=== PATIENT | female | born 1940 | race Caucasian/White ===

== ENCOUNTER 2018-12-07 09:45 | Outpatient (RCR) | payer MEDICARE, OTHER, SELFPAY ==
[2018-11-16 10:25] VITALS: BP 142/92; PULSE 74; RESP 18; TEMP 36.6
--- NOTE | 2018-11-16 12:00 | HP.PCM_ITS ---
(1) Peripheral arterial occlusive disease Status: Acute Current Visit: Yes Code(s): I77.9 - Disorder of arteries and arterioles, unspecified (2) Peripheral vascular disease Status: Acute Current Visit: Yes Code(s): I73.9 - Peripheral vascular disease, unspecified (3) Edema of lower extremity Status: Acute Current Visit: Yes Code(s): R60.0 - Localized edema (4) Edema of lower extremity due to peripheral venous insufficiency Status: Acute Current Visit: Yes Code(s): I87.2 - Venous insufficiency (chronic) (peripheral) (5) Cellulitis Status: Acute Current Visit: Yes Code(s): L03.90 - Cellulitis, unspecified (6) Cellulitis of lower extremity Status: Acute Current Visit: Yes Code(s): L03.119 - Cellulitis of unspecified part of limb (7) Non-pressure ulcer of lower extremity with fat layer exposed Status: Acute Current Visit: Yes Code(s): L97.902 - Non-pressure chronic ulcer of unspecified part of unspecified lower leg with fat layer exposed (8) History of multiple strokes Status: Acute Current Visit: Yes Code(s): Z86.73 - Personal history of transient ischemic attack (TIA), and cerebral infarction without residual deficits (9) Smoking addiction Status: Acute Current Visit: Yes Code(s): F17.200 - Nicotine dependence, unspecified, uncomplicated History of Present Illness Date of Service: 11/16/18 Chief Complaint: Follow-up on lower leg edema and ulcers History of Wound: 78-year-old white female that was referred to us from her family doctor from [place]. Approximately October 30 woke up one day and had severe edema of her lower extremities that she was unable to walk. Her daughter visits her daily noticed she had open sores on lower extremities and was oozing fluid. Went that she could not walk they took her by ambulance to the [facility]. Patient had an elevated BNP and was kept in the hospital for couple of days and discharged on water pills. Audiogram was normal has some valve problems no A. fib and history of hypertension and high cholesterol had her carotids cleared couple years ago. Today she has ulcers on the anterior and posterior right leg and posterior left leg. Typically irregular and edging well demarcated as you will see it in an arterial problem. We will get cultures of the wounds pre- albumin and we will have an AB study done and venous study of her lower extremities. Past Medical History Past Medical History: PAD PVD positive smoker hypertension strokes endarterectomy for her surgeries edema of the lower extremities Home Medications: Ambulatory Orders Medication Instructions Recorded Albuterol Sulfate [Ventolin Hfa] 18 gm IH PRN PRN 11/16/18 Atenolol [Tenormin] 100 mg PO DAILY 11/16/18 Atorvastatin Calcium [Lipitor] 40 mg PO QHS 11/16/18 Celecoxib [Celebrex] 200 mg PO BID 11/16/18 Furosemide [Lasix] 40 mg PO DAILY 11/16/18 Potassium Chloride [Klor-Con M10] 10 meq PO DAILY 11/16/18 Lives: Alone Smoking Status: Heavy Smoker (>10/day) Review of Systems Constitutional: Denies: Chills, Fever Eyes: Denies: Blurred vision, Drainage, Pain HEENT: Denies: Difficulty Hearing, Difficulty Swallowing, Sore Throat, Visual Changes Cardiovascular: Denies: Chest Pain, Palpitations, Syncope Respiratory: Denies: Cough, Shortness of Breath Gastrointestinal: Denies: Abdominal Pain, Nausea, Vomiting Genitourinary: Denies: Dysuria, Frequency Musculoskeletal: Denies: Joint Pain, Muscle pain Skin: Reports: Wounds - Lateral lower posterior extremity ulcers and right anterior reyes. Denies: Jaundice, Rash Neurological: Denies: Balance problems, Change in Speech, Difficulty swallowing, Focal weakness Psychiatric: Denies: Anxiety, Depression Endocrine: Denies: Change in Body Habitus Hematologic/ Lymphatic: Denies: Adenopathy - Physical Exam Vital Signs Temp Pulse Resp BP 97.8 F 74 18 142/92 H 11/16/18 10:25 11/16/18 10:25 11/16/18 10:25 11/16/18 10:25 General: Oriented x3, Cooperative, Well developed HEENT: Atraumatic, PERRLA Oral: Moist Mucosa Neck: Supple, No JVD Lungs: Clear to auscultation, Normal air movement Cardiovascular: Regular rate, Regular Rhythm Abdomen: Bowel Sounds Present, Soft, Non Tender, No Hepato-splenomegaly Extremities: No clubbing, Edema Skin: Ulcer/ Wound - Right reyes and right posterior ulcers left posterior ulcers Wound Measurements and Assessment WC - Nurse 1 - General Ulcer Measurement Start: 11/16/18 10:25 Freq: Status: Active Protocol: Activity Type Activity Date Activity User E-Sign Co-Sign Detail Recorded Client Recorded Date Recorded By Document 11/16/18 10:25 DV [id number] 11/16/18 10:57 DV 11/16/18 10:25 Wound Center Nurse 1 [Ulcer Assessment] #3 Posterior LLE Cluster -Combined with other wound No -Current Size (cm) - Length 9.5 -Current Size (cm) - Width 6.5 -Current Size (cm) - Depth 0.1 -Total Square Cm 61.75 -Photo Taken Yes -Epithelialization None Present -Tunneling No -Undermining/Tunneling No -Circular Undermining No -Classification - Thickness Full Thickness without Exposed Support Structure -Exudate Amt Large -Exudate Type Serosanguineous -Wound Margin Indistinct, Non -Visible -Granulation Amt None Present (0 %) -Granulation Quality N/A -Slough/Fibrin Yes -Necrosis Amt Large (67-100%) -Necrotic Tissue Type Adherent Slough -Structure Exposed None/Limited to Skin Breakdown -Texture (Denisse-wound Skin Appearance) Assessed Localized Edema Scarring -Moisture (Denisse-wound Skin Appearance Assessed ) Maceration Weeping -Color (Denisse-wound Skin Appearance) Assessed Erythema -Temperature (Denisse-wound Skin No Abnormality Appearance) (Pt Warm) -Tenderness on Palpation (Denisse-wound No Skin Appearance) -Ulcer Cleansing Rinsed/ Irrigated with Saline -Foul Odor after Cleansing No -Anesthetic Used 5% Lidocaine Gel #2 Posterior RLE Cluster -Combined with other wound No -Current Size (cm) - Length 8.0 -Current Size (cm) - Width 6.0 -Current Size (cm) - Depth 0.1 -Total Square Cm 48.00 -Photo Taken Yes -Epithelialization None Present -Tunneling No -Undermining/Tunneling No -Circular Undermining No -Classification - Thickness Full Thickness without Exposed Support Structure -Exudate Amt Large -Exudate Type Serosanguineous -Wound Margin Indistinct, Non -Visible -Granulation Amt None Present (0 %) -Granulation Quality N/A -Slough/Fibrin Yes -Necrosis Amt Large (67-100%) -Necrotic Tissue Type Adherent Slough -Structure Exposed None/Limited to Skin Breakdown -Texture (Denisse-wound Skin Appearance) Assessed Localized Edema Scarring -Moisture (Denisse-wound Skin Appearance Assessed ) Weeping -Color (Denisse-wound Skin Appearance) Assessed Erythema -Temperature (Denisse-wound Skin No Abnormality Appearance) (Pt Warm) -Tenderness on Palpation (Denisse-wound No Skin Appearance) -Ulcer Cleansing Rinsed/ Irrigated with Saline -Foul Odor after Cleansing No -Anesthetic Used 5% Lidocaine Gel #1 Right Reyes -Combined with other wound No -Current Size (cm) - Length 1.5 -Current Size (cm) - Width 1.8 -Current Size (cm) - Depth 0.1 -Total Square Cm 2.70 -Photo Taken Yes -Epithelialization None Present -Tunneling No -Undermining/Tunneling No -Circular Undermining No -Classification - Thickness Full Thickness without Exposed Support Structure -Exudate Amt Medium -Exudate Type Serous -Wound Margin Flat & Intact -Granulation Amt None Present (0 %) -Granulation Quality N/A -Necrosis Amt Large (67-100%) -Necrotic Tissue Type Adherent Slough -Structure Exposed None/Limited to Skin Breakdown -Texture (Denisse-wound Skin Appearance) Assessed Localized Edema Scarring -Moisture (Denisse-wound Skin Appearance Assessed ) Maceration Weeping -Color (Denisse-wound Skin Appearance) Assessed Erythema -Temperature (Denisse-wound Skin No Abnormality Appearance) (Pt Warm) -Tenderness on Palpation (Denisse-wound No Skin Appearance) -Ulcer Cleansing Rinsed/ Irrigated with Saline -Foul Odor after Cleansing No -Anesthetic Used 5% Lidocaine Gel [Edema Assessment] -Lower Limb Edema Present Yes -Right Calf (cm) 45.0 -Right Ankle (cm) 26.0 -Left Calf (cm) 46.5 -Left Ankle (cm) 26.0 WC - Nurse 2 - General Ulcer CM Notes Start: 11/16/18 10:25 Freq: Status: Active Protocol: Activity Type Activity Date Activity User E-Sign Co-Sign Detail Recorded Client Recorded Date Recorded By Document 11/16/18 11:31 MW [id number] 11/16/18 11:45 MW 11/16/18 11:31 Wound Center Nurse 2 [Procedure/Treatment] #3 Posterior LLE Cluster -Time 11:31 -Correct Patient Yes -Correct Side, Site, Position Yes -Correct Procedure Yes -Procedure Performed Yes -Type of Procedure Debridement -Clinical Debridement Subcutaneous -Post Debridement Size (cm) - Length 8.0 -Post Debridement Size (cm) - Width 8.5 -Post Debridement Size (cm) - Depth 0.2 -Total Square Cm 68.00 -Wound/Ulcer Outcome Not Healed -Ulcer Cleansing Rinsed/ Irrigated with Saline -Foul Odor after Cleansing No -Bioengineered Tissue No -Bleeding Controlled with Pressure -Offloading No -Treatment Response Procedure Tolerated Well #2 Posterior RLE Cluster -Time 11:32 -Correct Patient Yes -Correct Side, Site, Position Yes -Correct Procedure Yes -Procedure Performed Yes -Type of Procedure Debridement -Clinical Debridement Subcutaneous -Post Debridement Size (cm) - Length 6.0 -Post Debridement Size (cm) - Width 7.5 -Post Debridement Size (cm) - Depth 0.2 -Total Square Cm 45.00 -Wound/Ulcer Outcome Not Healed -Ulcer Cleansing Rinsed/ Irrigated with Saline -Foul Odor after Cleansing No -Bioengineered Tissue No -Bleeding Controlled with Pressure -Offloading No -Treatment Response Procedure Tolerated Well #1 Right Reyes -Time 11:33 -Correct Patient Yes -Correct Side, Site, Position Yes -Correct Procedure Yes -Procedure Performed Yes -Type of Procedure Debridement -Clinical Debridement Subcutaneous -Post Debridement Size (cm) - Length 1.0 -Post Debridement Size (cm) - Width 1.3 -Post Debridement Size (cm) - Depth 0.1 -Total Square Cm 1.30 -Wound/Ulcer Outcome Not Healed -Ulcer Cleansing Rinsed/ Irrigated with Saline -Foul Odor after Cleansing No -Bioengineered Tissue No -Bleeding Controlled with Pressure -Offloading No -Treatment Response Procedure Tolerated Well [See Physician Procedure note for Specifics] Pain Scale: 0-10 Numeric [Pain] -Is Patient Pain Free? Yes Musculoskeletal: No Tenderness to Palpation of Joints or Extremities Lymphatic: No Cervical, Supraclavicular, or Inguinal Adenopathy Neurological: Cranial nerves II-XII grossly intact, Neuro grossly intact Psych/Mental Status: Normal Affect, Appropriate Debridement Note Post-Debridement Measurements/Treatment WC - Nurse 2 - General Ulcer CM Notes Start: 11/16/18 10:25 Freq: Status: Active Protocol: Activity Type Activity Date Activity User E-Sign Co-Sign Detail Recorded Client Recorded Date Recorded By Document 11/16/18 11:31 MW [id number] 11/16/18 11:45 MW 11/16/18 11:31 Wound Center Nurse 2 #3 Posterior LLE Cluster -Time 11:31 -Correct Patient Yes -Correct Side, Site, Position Yes -Correct Procedure Yes -Procedure Performed Yes -Type of Procedure Debridement -Clinical Debridement Subcutaneous -Post Debridement Size (cm) - Length 8.0 -Post Debridement Size (cm) - Width 8.5 -Post Debridement Size (cm) - Depth 0.2 -Total Square Cm 68.00 -Wound/Ulcer Outcome Not Healed -Ulcer Cleansing Rinsed/ Irrigated with Saline -Foul Odor after Cleansing No -Bioengineered Tissue No -Bleeding Controlled with Pressure -Offloading No -Treatment Response Procedure Tolerated Well #2 Posterior RLE Cluster -Time 11:32 -Correct Patient Yes -Correct Side, Site, Position Yes -Correct Procedure Yes -Procedure Performed Yes -Type of Procedure Debridement -Clinical Debridement Subcutaneous -Post Debridement Size (cm) - Length 6.0 -Post Debridement Size (cm) - Width 7.5 -Post Debridement Size (cm) - Depth 0.2 -Total Square Cm 45.00 -Wound/Ulcer Outcome Not Healed -Ulcer Cleansing Rinsed/ Irrigated with Saline -Foul Odor after Cleansing No -Bioengineered Tissue No -Bleeding Controlled with Pressure -Offloading No -Treatment Response Procedure Tolerated Well #1 Right Reyes -Time 11:33 -Correct Patient Yes -Correct Side, Site, Position Yes -Correct Procedure Yes -Procedure Performed Yes -Type of Procedure Debridement -Clinical Debridement Subcutaneous -Post Debridement Size (cm) - Length 1.0 -Post Debridement Size (cm) - Width 1.3 -Post Debridement Size (cm) - Depth 0.1 -Total Square Cm 1.30 -Wound/Ulcer Outcome Not Healed -Ulcer Cleansing Rinsed/ Irrigated with Saline -Foul Odor after Cleansing No -Bioengineered Tissue No -Bleeding Controlled with Pressure -Offloading No -Treatment Response Procedure Tolerated Well Pain Scale: 0-10 Numeric Is Patient Pain Free? Yes Wound debrided: Right reyes Type of Debridement: Excisional debridement Anesthesia Used: 5% Lidocaine Gel Depth: Down to and including healthy tissue Percentage of wound debrided: 100 Instrument Used: 5mm curette Tissue Removed: Fibrin Severity: Fat Layer Exposed Amount of bleeding with debridement: Mild Bleeding Controlled with: Compression and gauze Patient tolerated procedure well - Additional Wound Wound debrided: Right posterior lower leg Type of Debridement: Excisional debridement Anesthesia Used: 5% Lidocaine Gel Depth: Down to and including healthy tissue, in the subcutaneous layer Percentage of wound debrided: 100 Instrument Used: 5mm curette Tissue Removed: Slough devitalized tissue some fibrin Severity: Fat Layer Exposed Amount of bleeding with debridement: Mild Bleeding Controlled with: Compression and gauze Patient tolerated procedure: Patient tolerated procedure well Assessment/Plan ABD and venous studies cultures taken aerobic and anaerobic lab pre-albumin Active Problems Peripheral arterial occlusive disease (Acute) Peripheral vascular disease (Acute) Edema of lower extremity (Acute) Edema of lower extremity due to peripheral venous insufficiency (Acute) Cellulitis (Acute) Cellulitis of lower extremity (Acute) Non-pressure ulcer of lower extremity with fat layer exposed (Acute) History of multiple strokes (Acute) Smoking addiction (Acute) Assessment: Peripheral arterial disease with occlusion. Peripheral vascular disease with ulcers. Smoker. Edema lower extremities. Cellulitis Plan: Wash legs with antibacterial soaps. Apply Aquacel to wound base cover with Adaptic gauze Jocelyn ABDs. Single layer Tubigrip to both legs. Follow-up in 1 week. We will call with culture results and labs. Already suggested she increase her protein with protein drinks of 30 g a day to supplement with meals increase protein intake of meats.
[2018-11-16 15:13] LABS: Prealbumin 17.3 mg/dL (20.0-40.0)
[2018-11-23 10:44] VITALS: BP 112/61; PULSE 66; RESP 18; TEMP 36.7
--- NOTE | 2018-11-23 12:00 | PN.PCM_ITS ---
(1) Peripheral arterial occlusive disease Status: Acute Current Visit: Yes Code(s): I77.9 - Disorder of arteries and arterioles, unspecified (2) Peripheral vascular disease Status: Acute Current Visit: Yes Code(s): I73.9 - Peripheral vascular disease, unspecified (3) Edema of lower extremity Status: Acute Current Visit: Yes Code(s): R60.0 - Localized edema (4) Edema of lower extremity due to peripheral venous insufficiency Status: Acute Current Visit: Yes Code(s): I87.2 - Venous insufficiency (chronic) (peripheral) (5) Cellulitis Status: Acute Current Visit: Yes Code(s): L03.90 - Cellulitis, unspecified (6) Cellulitis of lower extremity Status: Acute Current Visit: Yes Code(s): L03.119 - Cellulitis of unspecified part of limb (7) Non-pressure ulcer of lower extremity with fat layer exposed Status: Acute Current Visit: Yes Code(s): L97.902 - Non-pressure chronic ulcer of unspecified part of unspecified lower leg with fat layer exposed (8) History of multiple strokes Status: Acute Current Visit: Yes Code(s): Z86.73 - Personal history of transient ischemic attack (TIA), and cerebral infarction without residual deficits (9) Smoking addiction Status: Acute Current Visit: Yes Code(s): F17.200 - Nicotine dependence, unspecified, uncomplicated Type of Wound Chief Complaint: Follow-up on lower leg edema and ulcers History of Wound: 78-year-old white female that was referred to us from her family doctor from [place]. Approximately October 30 woke up one day and had severe edema of her lower extremities that she was unable to walk. Her daughter visits her daily noticed she had open sores on lower extremities and was oozing fluid. Went that she could not walk they took her by ambulance to the [facility]. Patient had an elevated BNP and was kept in the hospital for couple of days and discharged on water pills. Audiogram was normal has some valve problems no A. fib and history of hypertension and high cholesterol had her carotids cleared couple years ago. Today she has ulcers on the anterior and posterior right leg and posterior left leg. Typically irregular and edging well demarcated as you will see it in an arterial problem. We will get cultures of the wounds pre- albumin and we will have an AB study done and venous study of her lower extremities. Progress of Wound: Today the ulcers are becoming more defined and smaller left leg is better than the right leg. Debridement of a lot of slough this week was much easier. Patient will be continued use on the Aquacel extra moistened and wrapped edema is much better redness is better on her legs patient complains of less pain this week. Cultures came back negative for bacteria - Physical Exam Vital Signs Temp Pulse Resp BP 98.1 F 66 18 112/61 11/23/18 10:44 11/23/18 10:44 11/23/18 10:44 11/23/18 10:44 General: Oriented x3, Cooperative, Well developed HEENT: Atraumatic, PERRLA Oral: Moist Mucosa Neck: Supple, No JVD Lungs: Clear to auscultation, Normal air movement Cardiovascular: Regular rate, Regular Rhythm Abdomen: Bowel Sounds Present, Soft, Non Tender, No Hepato-splenomegaly Extremities: No clubbing, No edema Skin: Ulcer/ Wound - Peripheral vascular ulcers bilateral lower legs Wound Measurements and Assessment WC - Nurse 1 - General Ulcer Measurement Start: 11/16/18 10:25 Freq: Status: Active Protocol: Activity Type Activity Date Activity User E-Sign Co-Sign Detail Recorded Client Recorded Date Recorded By Document 11/23/18 10:44 [id number] 11/23/18 10:57 11/23/18 10:44 Wound Center Nurse 1 [Ulcer Assessment] #3 Posterior LLE Cluster -Combined with other wound No -Current Size (cm) - Length 6.5 -Current Size (cm) - Width 9.4 -Current Size (cm) - Depth 0.1 -Total Square Cm 61.10 -Photo Taken No -Epithelialization Small 1-33% -Tunneling No -Undermining/Tunneling No -Circular Undermining No -Exudate Amt Medium -Exudate Type Serosanguineous -Wound Margin Flat & Intact -Granulation Amt Small (1-33%) -Granulation Quality Alger -Slough/Fibrin Yes -Necrosis Amt Large (67-100%) -Necrotic Tissue Type Adherent Slough -Structure Exposed N/A -Texture (Denisse-wound Skin Appearance) Assessed Localized Edema -Moisture (Denisse-wound Skin Appearance Assessed ) Dry/Scaly -Color (Denisse-wound Skin Appearance) No Abnormality -Temperature (Denisse-wound Skin No Abnormality Appearance) (Pt Warm) -Tenderness on Palpation (Denisse-wound No Skin Appearance) -Ulcer Cleansing Rinsed/ Irrigated with Saline -Foul Odor after Cleansing No -Anesthetic Used 4% Lidocaine Solution #2 Posterior RLE Cluster -Combined with other wound No -Current Size (cm) - Length 5 -Current Size (cm) - Width 8 -Current Size (cm) - Depth 0.1 -Total Square Cm 40 -Photo Taken No -Epithelialization Medium 34-66% -Tunneling No -Undermining/Tunneling No -Circular Undermining No -Exudate Amt Medium -Exudate Type Serosanguineous -Wound Margin Flat & Intact -Granulation Amt None Present (0 %) -Slough/Fibrin Yes -Necrosis Amt Large (67-100%) -Necrotic Tissue Type Adherent Slough -Structure Exposed N/A -Texture (Denisse-wound Skin Appearance) Assessed Localized Edema -Moisture (Denisse-wound Skin Appearance Assessed ) Dry/Scaly -Color (Denisse-wound Skin Appearance) Assessed -Temperature (Denisse-wound Skin No Abnormality Appearance) (Pt Warm) -Tenderness on Palpation (Denisse-wound No Skin Appearance) -Ulcer Cleansing Rinsed/ Irrigated with Saline -Foul Odor after Cleansing No -Anesthetic Used 4% Lidocaine Solution #1 Right Reyes -Combined with other wound No -Current Size (cm) - Length 1.5 -Current Size (cm) - Width 1.4 -Current Size (cm) - Depth 0.1 -Total Square Cm 2.10 -Photo Taken No -Epithelialization Small 1-33% -Tunneling No -Undermining/Tunneling No -Circular Undermining No -Exudate Amt Small -Exudate Type Serosanguineous -Wound Margin Flat & Intact -Granulation Amt None Present (0 %) -Slough/Fibrin Yes -Necrosis Amt Large (67-100%) -Necrotic Tissue Type Adherent Slough -Structure Exposed N/A -Texture (Denisse-wound Skin Appearance) Assessed Localized Edema -Moisture (Denisse-wound Skin Appearance Assessed ) Dry/Scaly -Color (Denisse-wound Skin Appearance) Assessed -Temperature (Denisse-wound Skin No Abnormality Appearance) (Pt Warm) -Tenderness on Palpation (Denisse-wound No Skin Appearance) -Ulcer Cleansing Rinsed/ Irrigated with Saline -Foul Odor after Cleansing No -Anesthetic Used 4% Lidocaine Solution 5% Lidocaine Gel [Edema Assessment] -Lower Limb Edema Present Yes -Right Calf (cm) 45 -Right Ankle (cm) 26.2 -Left Calf (cm) 47.2 -Left Ankle (cm) 25.8 WC - Nurse 2 - General Ulcer CM Notes Start: 11/16/18 10:25 Freq: Status: Active Protocol: Activity Type Activity Date Activity User E-Sign Co-Sign Detail Recorded Client Recorded Date Recorded By Document 11/23/18 11:14 MW [id number] 11/23/18 11:24 MW 11/23/18 11:14 Wound Center Nurse 2 [Procedure/Treatment] #3 Posterior LLE Cluster -Time 11:15 -Correct Patient Yes -Correct Side, Site, Position Yes -Correct Procedure Yes -Procedure Performed Yes -Type of Procedure Debridement -Clinical Debridement Subcutaneous -Post Debridement Size (cm) - Length 9.3 -Post Debridement Size (cm) - Width 10.3 -Post Debridement Size (cm) - Depth 0.2 -Total Square Cm 95.79 -Wound/Ulcer Outcome Not Healed -Ulcer Cleansing Rinsed/ Irrigated with Saline -Foul Odor after Cleansing No -Bioengineered Tissue No -Bleeding Controlled with Pressure -Offloading No -Treatment Response Procedure Tolerated Well #2 Posterior RLE Cluster -Time 11:15 -Correct Patient Yes -Correct Side, Site, Position Yes -Correct Procedure Yes -Procedure Performed Yes -Type of Procedure Debridement -Clinical Debridement Subcutaneous -Post Debridement Size (cm) - Length 5.5 -Post Debridement Size (cm) - Width 5.5 -Post Debridement Size (cm) - Depth 0.1 -Total Square Cm 30.25 -Wound/Ulcer Outcome Not Healed -Ulcer Cleansing Rinsed/ Irrigated with Saline -Foul Odor after Cleansing No -Bioengineered Tissue No -Bleeding Controlled with Pressure -Offloading No -Treatment Response Procedure Tolerated Well #1 Right Reyes -Time 11:16 -Correct Patient Yes -Correct Side, Site, Position Yes -Correct Procedure Yes -Procedure Performed Yes -Type of Procedure Debridement -Clinical Debridement Subcutaneous -Post Debridement Size (cm) - Length 1.5 -Post Debridement Size (cm) - Width 1.5 -Post Debridement Size (cm) - Depth 0.1 -Total Square Cm 2.25 -Wound/Ulcer Outcome Not Healed -Ulcer Cleansing Rinsed/ Irrigated with Saline -Foul Odor after Cleansing No -Bioengineered Tissue No -Bleeding Controlled with Pressure -Offloading No -Treatment Response Procedure Tolerated Well [See Physician Procedure note for Specifics] Pain Scale: 0-10 Numeric [Pain] -Is Patient Pain Free? Yes Musculoskeletal: No Tenderness to Palpation of Joints or Extremities Lymphatic: No Cervical, Supraclavicular, or Inguinal Adenopathy Neurological: Cranial nerves II-XII grossly intact, Neuro grossly intact Psych/Mental Status: Normal Affect, Appropriate Debridement Note Post-Debridement Measurements/Treatment WC - Nurse 2 - General Ulcer CM Notes Start: 11/16/18 10:25 Freq: Status: Active Protocol: Activity Type Activity Date Activity User E-Sign Co-Sign Detail Recorded Client Recorded Date Recorded By Document 11/16/18 11:31 MW [id number] 11/16/18 11:45 MW Document 11/23/18 11:14 MW [id number] 11/23/18 11:24 MW 11/16/18 11/23/18 11:31 11:14 Wound Center Nurse 2 #3 Posterior LLE Cluster -Time 11:31 11:15 -Correct Patient Yes Yes -Correct Side, Site, Position Yes Yes -Correct Procedure Yes Yes -Procedure Performed Yes Yes -Type of Procedure Debridement Debridement -Clinical Debridement Subcutaneous Subcutaneous -Post Debridement Size (cm) - Length 8.0 9.3 -Post Debridement Size (cm) - Width 8.5 10.3 -Post Debridement Size (cm) - Depth 0.2 0.2 -Total Square Cm 68.00 95.79 -Wound/Ulcer Outcome Not Healed Not Healed -Ulcer Cleansing Rinsed/ Rinsed/ Irrigated with Irrigated with Saline Saline -Foul Odor after Cleansing No No -Bioengineered Tissue No No -Bleeding Controlled with Pressure Pressure -Offloading No No -Treatment Response Procedure Procedure Tolerated Well Tolerated Well #2 Posterior RLE Cluster -Time 11:32 11:15 -Correct Patient Yes Yes -Correct Side, Site, Position Yes Yes -Correct Procedure Yes Yes -Procedure Performed Yes Yes -Type of Procedure Debridement Debridement -Clinical Debridement Subcutaneous Subcutaneous -Post Debridement Size (cm) - Length 6.0 5.5 -Post Debridement Size (cm) - Width 7.5 5.5 -Post Debridement Size (cm) - Depth 0.2 0.1 -Total Square Cm 45.00 30.25 -Wound/Ulcer Outcome Not Healed Not Healed -Ulcer Cleansing Rinsed/ Rinsed/ Irrigated with Irrigated with Saline Saline -Foul Odor after Cleansing No No -Bioengineered Tissue No No -Bleeding Controlled with Pressure Pressure -Offloading No No -Treatment Response Procedure Procedure Tolerated Well Tolerated Well #1 Right Reyes -Time 11:33 11:16 -Correct Patient Yes Yes -Correct Side, Site, Position Yes Yes -Correct Procedure Yes Yes -Procedure Performed Yes Yes -Type of Procedure Debridement Debridement -Clinical Debridement Subcutaneous Subcutaneous -Post Debridement Size (cm) - Length 1.0 1.5 -Post Debridement Size (cm) - Width 1.3 1.5 -Post Debridement Size (cm) - Depth 0.1 0.1 -Total Square Cm 1.30 2.25 -Wound/Ulcer Outcome Not Healed Not Healed -Ulcer Cleansing Rinsed/ Rinsed/ Irrigated with Irrigated with Saline Saline -Foul Odor after Cleansing No No -Bioengineered Tissue No No -Bleeding Controlled with Pressure Pressure -Offloading No No -Treatment Response Procedure Procedure Tolerated Well Tolerated Well Pain Scale: 0-10 Numeric Is Patient Pain Free? Yes Yes Wound debrided: Right lower extremity posterior cluster Type of Debridement: Excisional debridement Anesthesia Used: 5% Lidocaine Gel Depth: Down to and including healthy tissue, in the subcutaneous layer Percentage of wound debrided: 100 Instrument Used: 5mm curette Tissue Removed: Slough devitalized tissue Severity: Limited To Skin Breakdown Amount of bleeding with debridement: Mild Bleeding Controlled with: Compression and gauze Patient tolerated procedure well - Additional Wound Wound debrided: Right reyes Type of Debridement: Excisional debridement Anesthesia Used: 5% Lidocaine Gel Depth: Down to and including healthy tissue, in the subcutaneous layer Percentage of wound debrided: 100 Instrument Used: 5mm curette Tissue Removed: Slough and devitalized tissue Severity: Limited To Skin Breakdown Amount of bleeding with debridement: Mild Bleeding Controlled with: Compression and gauze Patient tolerated procedure: Patient tolerated procedure well - Additional Wound Wound debrided: Left lower extremity posterior cluster Type of Debridement: Excisional debridement Anesthesia Used: 5% Lidocaine Gel Depth: Down to and including healthy tissue, in the subcutaneous layer Instrument Used: 5mm curette Tissue Removed: Slough and devitalized tissue Severity: Fat Layer Exposed Amount of bleeding with debridement: Mild Bleeding Controlled with: Compression and gauze Patient tolerated procedure: Patient tolerated procedure well Assessment/Plan Active Problems Peripheral arterial occlusive disease (Acute) Peripheral vascular disease (Acute) Edema of lower extremity (Acute) Edema of lower extremity due to peripheral venous insufficiency (Acute) Cellulitis (Acute) Cellulitis of lower extremity (Acute) Non-pressure ulcer of lower extremity with fat layer exposed (Acute) History of multiple strokes (Acute) Smoking addiction (Acute) Assessment: Peripheral arterial disease with occlusion. Peripheral vascular disease with ulcers. Smoker. Edema lower extremities. Cellulitis Plan: Wash legs with antibacterial soaps. Apply Aquacel to wound base cover with gauze Jocelyn ABDs. Single layer Tubigrip to both legs. Follow-up in 1 week. Patient scheduled next week for her arterial brachial studies and venous studies. Already suggested she increase her protein with protein drinks of 30 g a day to supplement with meals increase protein intake of meats.
--- NOTE | 2018-11-30 10:04 | VDLE_ITS ---
Reason For Study: PVD RIGHT LEFT CFV is compressible, spontaneous, phasic, CFV is compressible, spontaneous, phasic, competent and demonstrates normal competent, and demonstrates normal augmentation. augmentation. FV is compressible, spontaneous, phasic, FV is compressible, spontaneous, phasic, competent and demonstrates normal competent and demonstrates normal augmentation. augmentation. POP V is compressible, spontaneous, phasic, POP V is compressible, spontaneous, phasic, competent and demonstrates normal competent and demonstrates normal augmentation. augmentation. T/P Trunk is compressible. T/P Trunk is compressible. PTV is compressible. PTV is compressible. RT PerV is compressible. LT PerV is compressible. SFJ is INCOMPETENT. SFJ is INCOMPETENT. GSV is competent. GSV is INCOMPETENT throughout for greater SSV is INCOMPETENT for greater than 0.5 than 00.5 seconds and measures 0.38 x 0.40 seconds and measures 0.26 x 0.26 cm. cm. Procedure SSV is competent. Exam performed in department. A preliminary report was called and/or faxed to . Interpretation Summary Deep veins of the lower extremities are bilaterally patent and compressible segmentally. There is no evidence of deep vein thrombosis on either side. Valvular competence appears intact within the proximal deep venous systems bilaterally. The greater saphenous veins appear bilaterally patent and compressible segmentally. Sapheno-femoral junctions are bilaterally incompetent . The right greater saphenous vein appears segmentally competent. The left greater saphenous vein appears segmentally incompetent. The right small saphenous vein is patent and incompetent. The left small saphenous vein is patent and competent. Ordering Physician: Brissa Bhatt Referring Physician: John Flores Performed By: Zoey Staples RVT
--- NOTE | 2018-11-30 10:05 | ART_ITS ---
Reason For Study: PVD Procedure A bilateral lower extremity continuous wave Doppler with analog waveform analysis,segmental pressures,and ankle brachial indexes without exercise. Left Segmental Pressures Left brachial= 105mmHg. Left thigh = 133mmHg. Left calf = 105mmHg. Left posterior tibial artery = 90mmHg. Left dorsalis pedis artery = 103mmHg. Left digit = 75 mmHg. The left dorsalis pedis waveforms are biphasic. The left posterior tibial artery waveforms are biphasic. Right Segmental Pressures Right brachial= 99mmHg. Right posterior tibial artery = 108mmHg. Right dorsalis pedis artery = 112mmHg. Right digit = 91 mmHg. The right dorsalis pedis waveforms are biphasic. The right posterior tibial artery waveforms are triphasic. Indices The right ankle brachial index by the dorsalis pedis is 1.07. The right ankle brachial index by the posterior tibial artery is 1.03. The right digital-brachial index is 0.87. The left ankle brachial index by the dorsalis pedis is 0.98. The left ankle brachial index by the posterior tibial artery is 0.86. The left digital-brachial index is 0.71. Interpretation Summary Triphasic and biphasic Doppler waveforms are noted at ankle level on the right. Biphasic Doppler waveforms are noted at ankle level on the left. Pulse-volume recording waveform amplitudes are satisfactory at low-thigh, calf, and ankle levels bilaterally, but diminished at digital level bilaterally. Resting ankle-brachial indices are bilaterally normal. The right digital-brachial index is normal. The left digital-brachial index is low-normal. There is no evidence of significant arterial occlusive disease in the lower extremities at ankle level bilaterally. There is a suggestion of mild, distal, small-vessel occlusive disease, particularly on the left. Clinical correlation is advised. Ordering Physician: Brissa Bhatt Referring Physician: John Flores Performed By: Zoey Staples RVT
[2018-12-07 09:51] VITALS: BP 119/70; PULSE 69; RESP 18; TEMP 36.2
--- NOTE | 2018-12-07 12:55 | PCM.WC.PN ---
(1) Peripheral arterial occlusive disease Status: Chronic Current Visit: Yes Code(s): I77.9 - Disorder of arteries and arterioles, unspecified (2) Peripheral vascular disease Status: Chronic Current Visit: Yes Code(s): I73.9 - Peripheral vascular disease, unspecified (3) Edema of lower extremity Status: Chronic Current Visit: Yes Code(s): R60.0 - Localized edema (4) Edema of lower extremity due to peripheral venous insufficiency Status: Chronic Current Visit: Yes Code(s): I87.2 - Venous insufficiency (chronic) (peripheral) (5) Cellulitis Status: Chronic Current Visit: Yes Code(s): L03.90 - Cellulitis, unspecified (6) Cellulitis of lower extremity Status: Chronic Current Visit: Yes Code(s): L03.119 - Cellulitis of unspecified part of limb (7) Non-pressure ulcer of lower extremity with fat layer exposed Status: Acute Current Visit: Yes Code(s): L97.902 - Non-pressure chronic ulcer of unspecified part of unspecified lower leg with fat layer exposed (8) History of multiple strokes Status: Acute Current Visit: Yes Code(s): Z86.73 - Personal history of transient ischemic attack (TIA), and cerebral infarction without residual deficits (9) Smoking addiction Status: Acute Current Visit: Yes Code(s): F17.200 - Nicotine dependence, unspecified, uncomplicated Type of Wound Date of Service: 12/07/18 Chief Complaint: Follow-up on lower leg edema and ulcers History of Wound: 78-year-old white female that was referred to us from her family doctor from [place]. Approximately October 30 woke up one day and had severe edema of her lower extremities that she was unable to walk. Her daughter visits her daily noticed she had open sores on lower extremities and was oozing fluid. Went that she could not walk they took her by ambulance to the [facility]. Patient had an elevated BNP and was kept in the hospital for couple of days and discharged on water pills. Audiogram was normal has some valve problems no A. fib and history of hypertension and high cholesterol had her carotids cleared couple years ago. Today she has ulcers on the anterior and posterior right leg and posterior left leg. Typically irregular and edging well demarcated as you will see it in an arterial problem. We will get cultures of the wounds pre-albumin and we will have an AB study done and venous study of her lower extremities. Progress of Wound: Today the ulcers are becoming more defined and smaller left leg is better than the right leg but still have some depth. Debridement of a lot of slough this week was much easier. We will switch to Santyl to keep the legs hand rug cleaner and have to do less debriding she complains of pain with debridement. - Physical Exam Vital Signs Temp Pulse Resp BP 97.1 F L 69 18 119/70 12/07/18 09:51 12/07/18 09:51 12/07/18 09:51 12/07/18 09:51 General: Oriented x3, Cooperative, Well developed HEENT: Atraumatic, PERRLA Oral: Moist Mucosa Neck: Supple, No JVD Lungs: Clear to auscultation, Normal air movement Cardiovascular: Regular rate, Regular Rhythm Abdomen: Bowel Sounds Present, Soft, Non Tender, No Hepato-splenomegaly Extremities: No clubbing, Edema Skin: Ulcer/ Wound - Peripheral vascular ulcers on bilateral lower legs anterior posterior mostly posterior with slough Wound Measurements and Assessment WC - Nurse 1 - General Ulcer Measurement Start: 11/16/18 10:25 Freq: Status: Active Protocol: Activity Type Activity Date Activity User E-Sign Co-Sign Detail Recorded Client Recorded Date Recorded By Document 12/07/18 09:51 [id number] 12/07/18 10:21 AN 12/07/18 09:51 Wound Center Nurse 1 [Ulcer Assessment] #3 Posterior LLE Cluster -Current Size (cm) - Length 6.2 -Current Size (cm) - Width 6.5 -Current Size (cm) - Depth 0.1 -Total Square Cm 40.30 -Photo Taken No -Tunneling No -Undermining/Tunneling No -Classification - Thickness Full Thickness without Exposed Support Structure -Exudate Amt Large -Exudate Type Serous -Wound Margin Distinct, Outline Attached -Granulation Amt Small (1-33%) -Granulation Quality Red -Slough/Fibrin Yes -Necrosis Amt Large (67-100%) -Necrotic Tissue Type Adherent Slough -Structure Exposed None/Limited to Skin Breakdown -Texture (Denisse-wound Skin Appearance) Assessed, Localized Edema -Moisture (Denisse-wound Skin Appearance Assessed, ) Weeping -Color (Denisse-wound Skin Appearance) Assessed, Erythema -Temperature (Denisse-wound Skin No Abnormality Appearance) (Pt Warm) -Tenderness on Palpation (Denisse-wound No Skin Appearance) -Ulcer Cleansing Rinsed/ Irrigated with Saline -Foul Odor after Cleansing No -Anesthetic Used 5% Lidocaine Gel #2 Posterior RLE Cluster -Current Size (cm) - Length 5.7 -Current Size (cm) - Width 6.2 -Current Size (cm) - Depth 0.1 -Total Square Cm 35.34 -Classification - Thickness Full Thickness without Exposed Support Structure -Exudate Amt Large -Exudate Type Serous -Wound Margin Distinct, Outline Attached -Granulation Amt Small (1-33%) -Granulation Quality Red -Slough/Fibrin Yes -Necrosis Amt Large (67-100%) -Necrotic Tissue Type Adherent Slough -Structure Exposed None/Limited to Skin Breakdown -Texture (Denisse-wound Skin Appearance) Assessed, Localized Edema -Moisture (Denisse-wound Skin Appearance Assessed, ) Weeping -Color (Denisse-wound Skin Appearance) Assessed, Erythema -Temperature (Denisse-wound Skin No Abnormality Appearance) (Pt Warm) -Tenderness on Palpation (Denisse-wound No Skin Appearance) -Ulcer Cleansing Rinsed/ Irrigated with Saline -Foul Odor after Cleansing No -Anesthetic Used 5% Lidocaine Gel #1 Right Reyes -Current Size (cm) - Length 1.3 -Current Size (cm) - Width 1.2 -Current Size (cm) - Depth 0.1 -Total Square Cm 1.56 -Classification - Thickness Full Thickness without Exposed Support Structure -Exudate Amt Large -Exudate Type Serous -Wound Margin Distinct, Outline Attached -Granulation Amt Small (1-33%) -Granulation Quality Red -Slough/Fibrin Yes -Necrosis Amt Large (67-100%) -Necrotic Tissue Type Adherent Slough -Structure Exposed None/Limited to Skin Breakdown -Texture (Denisse-wound Skin Appearance) Assessed, Localized Edema -Moisture (Denisse-wound Skin Appearance Assessed, ) Weeping -Color (Denisse-wound Skin Appearance) Assessed, Erythema -Temperature (Denisse-wound Skin No Abnormality Appearance) (Pt Warm) -Tenderness on Palpation (Denisse-wound No Skin Appearance) -Ulcer Cleansing Rinsed/ Irrigated with Saline -Foul Odor after Cleansing No -Anesthetic Used 5% Lidocaine Gel [Edema Assessment] -Right Calf (cm) 44.9 -Right Ankle (cm) 27 -Left Ankle (cm) 26.2 -Left Foot (cm) 45.7 WC - Nurse 2 - General Ulcer CM Notes Start: 11/16/18 10:25 Freq: Status: Active Protocol: Activity Type Activity Date Activity User E-Sign Co-Sign Detail Recorded Client Recorded Date Recorded By Document 12/07/18 10:45 MW [id number] 12/07/18 10:49 MW 12/07/18 10:45 Wound Center Nurse 2 [Procedure/Treatment] #3 Posterior LLE Cluster -Time 10:45 -Correct Patient Yes -Correct Side, Site, Position Yes -Correct Procedure Yes -Procedure Performed Yes -Type of Procedure Debridement -Clinical Debridement Subcutaneous -Post Debridement Size (cm) - Length 9.0 -Post Debridement Size (cm) - Width 8.0 -Post Debridement Size (cm) - Depth 0.3 -Total Square Cm 72.00 -Wound/Ulcer Outcome Not Healed -Ulcer Cleansing Rinsed/ Irrigated with Saline -Foul Odor after Cleansing No -Bioengineered Tissue No -Bleeding Controlled with Pressure -Offloading No -Treatment Response Procedure Tolerated Well #2 Posterior RLE Cluster -Time 10:48 -Correct Patient Yes -Correct Side, Site, Position Yes -Correct Procedure Yes -Procedure Performed Yes -Type of Procedure Debridement -Clinical Debridement Subcutaneous -Post Debridement Size (cm) - Length 5.7 -Post Debridement Size (cm) - Width 6.2 -Post Debridement Size (cm) - Depth 0.2 -Total Square Cm 35.34 -Wound/Ulcer Outcome Not Healed -Ulcer Cleansing Rinsed/ Irrigated with Saline -Foul Odor after Cleansing No -Bioengineered Tissue No -Bleeding Controlled with Pressure -Offloading No -Treatment Response Procedure Tolerated Well #1 Right Reyes -Time 10:48 -Correct Patient Yes -Correct Side, Site, Position Yes -Correct Procedure Yes -Procedure Performed Yes -Type of Procedure Debridement -Clinical Debridement Subcutaneous -Post Debridement Size (cm) - Length 1.0 -Post Debridement Size (cm) - Width 1.4 -Post Debridement Size (cm) - Depth 0.2 -Total Square Cm 1.40 -Wound/Ulcer Outcome Not Healed -Ulcer Cleansing Rinsed/ Irrigated with Saline -Foul Odor after Cleansing No -Bioengineered Tissue No -Bleeding Controlled with Pressure -Offloading No -Treatment Response Procedure Tolerated Well [See Physician Procedure note for Specifics] Pain Scale: 0-10 Numeric [Pain] -Is Patient Pain Free? Yes Musculoskeletal: No Tenderness to Palpation of Joints or Extremities Lymphatic: No Cervical, Supraclavicular, or Inguinal Adenopathy Neurological: Cranial nerves II-XII grossly intact, Neuro grossly intact Psych/Mental Status: Normal Affect, Appropriate Debridement Note Post-Debridement Measurements/Treatment WC - Nurse 2 - General Ulcer CM Notes Start: 11/16/18 10:25 Freq: Status: Active Protocol: Activity Type Activity Date Activity User E-Sign Co-Sign Detail Recorded Client Recorded Date Recorded By Document 11/16/18 11:31 MW [id number] 11/16/18 11:45 MW Document 11/23/18 11:14 MW [id number] 11/23/18 11:24 MW Document 12/07/18 10:45 MW [id number] 12/07/18 10:49 MW 11/16/18 11/23/18 12/07/18 11:31 11:14 10:45 Wound Center Nurse 2 #3 Posterior LLE Cluster -Time 11: 11:15 10:45 -Correct Patient Yes Yes Yes -Correct Side, Site, Position Yes Yes Yes -Correct Procedure Yes Yes Yes -Procedure Performed Yes Yes Yes -Type of Procedure Debridement Debridement Debridement -Clinical Debridement Subcutaneous Subcutaneous Subcutaneous -Post Debridement Size (cm) - Length 8.0 9.3 9.0 -Post Debridement Size (cm) - Width 8.5 10.3 8.0 -Post Debridement Size (cm) - Depth 0.2 0.2 0.3 -Total Square Cm 68.00 95.79 72.00 -Wound/Ulcer Outcome Not Healed Not Healed Not Healed -Ulcer Cleansing Rinsed/ Rinsed/ Rinsed/ Irrigated with Irrigated with Irrigated with Saline Saline Saline -Foul Odor after Cleansing No No No -Bioengineered Tissue No No No -Bleeding Controlled with Pressure Pressure Pressure -Offloading No No No -Treatment Response Procedure Procedure Procedure Tolerated Well Tolerated Well Tolerated Well #2 Posterior RLE Cluster -Time 11: 11:15 10:48 -Correct Patient Yes Yes Yes -Correct Side, Site, Position Yes Yes Yes -Correct Procedure Yes Yes Yes -Procedure Performed Yes Yes Yes -Type of Procedure Debridement Debridement Debridement -Clinical Debridement Subcutaneous Subcutaneous Subcutaneous -Post Debridement Size (cm) - Length 6.0 5.5 5.7 -Post Debridement Size (cm) - Width 7.5 5.5 6.2 -Post Debridement Size (cm) - Depth 0.2 0.1 0.2 -Total Square Cm 45.00 30.25 35.34 -Wound/Ulcer Outcome Not Healed Not Healed Not Healed -Ulcer Cleansing Rinsed/ Rinsed/ Rinsed/ Irrigated with Irrigated with Irrigated with Saline Saline Saline -Foul Odor after Cleansing No No No -Bioengineered Tissue No No No -Bleeding Controlled with Pressure Pressure Pressure -Offloading No No No -Treatment Response Procedure Procedure Procedure Tolerated Well Tolerated Well Tolerated Well #1 Right Reyes -Time 11:33 11:16 10:48 -Correct Patient Yes Yes Yes -Correct Side, Site, Position Yes Yes Yes -Correct Procedure Yes Yes Yes -Procedure Performed Yes Yes Yes -Type of Procedure Debridement Debridement Debridement -Clinical Debridement Subcutaneous Subcutaneous Subcutaneous -Post Debridement Size (cm) - Length 1.0 1.5 1.0 -Post Debridement Size (cm) - Width 1.3 1.5 1.4 -Post Debridement Size (cm) - Depth 0.1 0.1 0.2 -Total Square Cm 1.30 2.25 1.40 -Wound/Ulcer Outcome Not Healed Not Healed Not Healed -Ulcer Cleansing Rinsed/ Rinsed/ Rinsed/ Irrigated with Irrigated with Irrigated with Saline Saline Saline -Foul Odor after Cleansing No No No -Bioengineered Tissue No No No -Bleeding Controlled with Pressure Pressure Pressure -Offloading No No No -Treatment Response Procedure Procedure Procedure Tolerated Well Tolerated Well Tolerated Well Pain Scale: 0-10 Numeric Is Patient Pain Free? Yes Yes Yes Wound debrided: Right reyes Anesthesia Used: 5% Lidocaine Gel Depth: in the subcutaneous layer Percentage of wound debrided: 100 Instrument Used: 3mm curette Tissue Removed: Fibrin Severity: Limited To Skin Breakdown Amount of bleeding with debridement: Mild Bleeding Controlled with: Compression and gauze Patient tolerated procedure well - Additional Wound Wound debrided: Right lower leg posterior ulcers Type of Debridement: Excisional debridement Anesthesia Used: 5% Lidocaine Gel Depth: Down to and including healthy tissue, in the subcutaneous layer Instrument Used: 5mm curette Tissue Removed: Slough Severity: Fat Layer Exposed Amount of bleeding with debridement: Mild Bleeding Controlled with: Compression and gauze Patient tolerated procedure: Patient tolerated procedure well - Additional Wound Wound debrided: Left posterior lower leg cluster Type of Debridement: Excisional debridement Anesthesia Used: 5% Lidocaine Gel Depth: Down to and including healthy tissue, in the subcutaneous layer Instrument Used: 5mm curette Tissue Removed: Slough Severity: Fat Layer Exposed Amount of bleeding with debridement: Mild Bleeding Controlled with: Compression and gauze Patient tolerated procedure: Patient tolerated procedure well Assessment/Plan Active Problems Peripheral arterial occlusive disease (Chronic) Peripheral vascular disease (Chronic) Edema of lower extremity (Chronic) Edema of lower extremity due to peripheral venous insufficiency (Chronic) Cellulitis (Chronic) Cellulitis of lower extremity (Chronic) Non-pressure ulcer of lower extremity with fat layer exposed (Acute) History of multiple strokes (Acute) Smoking addiction (Acute) Assessment: Peripheral vascular disease with ulcers. Smoker. Edema lower extremities. Cellulitis Plan: Wash legs with antibacterial soaps. Apply Santyl to wound base cover Adaptic gauze Jocelyn ABDs. Single layer Tubigrip to both legs. Follow-up in 1 week. Patient scheduled next week for her arterial brachial studies and venous studies. Discussed arterial brachial studies and venous studies with patient will refer after wounds are healed
== END 2018-12-09 23:59 ==
LOC: WC 09:45
PROVIDERS: Family Provider Family Medicine; PCP Family Medicine; Visit Provider Nurse Practitioner
DX: I73.9 Peripheral vascular disease, unspecified (principal); I87.2 Venous insufficiency (chronic) (peripheral); R60.0 Localized edema; Z86.73 Personal history of transient ischemic attack (TIA), and cerebral infarction without residual deficits; F17.200 Nicotine dependence, unspecified, uncomplicated; L97.822 Non-pressure chronic ulcer of other part of left lower leg with fat layer exposed; L97.812 Non-pressure chronic ulcer of other part of right lower leg with fat layer exposed; L03.119 Cellulitis of unspecified part of limb
CPT/HCPCS: 11042; 11045; 84134; 87070; 87075; 87205; 93923; 93970; 99203; G0463

== ENCOUNTER 2019-01-04 09:30 | Outpatient (RCR) | payer MEDICARE, OTHER, SELFPAY ==
[2018-12-10 01:04] VITALS: BP 119/70; PULSE 69; RESP 18; TEMP 36.2
[2018-12-14 09:57] VITALS: BP 120/74; PULSE 72; RESP 18; TEMP 36.4
--- NOTE | 2018-12-14 10:38 | PN.PCM_ITS ---
(1) Non-pressure ulcer of lower extremity with fat layer exposed Status: Acute Current Visit: Yes Code(s): L97.902 - Non-pressure chronic ulcer of unspecified part of unspecified lower leg with fat layer exposed (2) Smoking addiction Status: Chronic Current Visit: Yes Code(s): F17.200 - Nicotine dependence, unspecified, uncomplicated (3) Edema of lower extremity Status: Chronic Current Visit: Yes Code(s): R60.0 - Localized edema (4) Edema of lower extremity due to peripheral venous insufficiency Status: Chronic Current Visit: Yes Code(s): I87.2 - Venous insufficiency (chronic) (peripheral) Type of Wound Date of Service: 12/14/18 Chief Complaint: Follow-up on lower leg edema and ulcers History of Wound: 78-year-old white female that was referred to us from her family doctor from [place]. Approximately October 30 woke up one day and had severe edema of her lower extremities that she was unable to walk. Her daughter visits her daily noticed she had open sores on lower extremities and was oozing fluid. Went that she could not walk they took her by ambulance to the [facility]. Patient had an elevated BNP and was kept in the hospital for couple of days and discharged on water pills. Audiogram was normal has some valve problems no A. fib and history of hypertension and high cholesterol had her carotids cleared couple years ago. Today she has ulcers on the anterior and posterior right leg and posterior left leg. Typically irregular and edging well demarcated as you will see it in an arterial problem. We will get cultures of the wounds pre- albumin and we will have an AB study done and venous study of her lower extremities. Progress of Wound: Today the ulcers are becoming more defined and smaller left leg is better than the right leg but still have some depth. Debridement of a lot of slough this week was much easier. We switched to Santyl and its doing a much better job of debridement. The cost is expensive because the pharmacist did not use the co-pay card they used her insurance. The edema is much improved. Patient has heard from the vascular surgeon needs to call them back. - Physical Exam Vital Signs Temp Pulse Resp BP 97.5 F L 72 18 120/74 12/14/18 09:57 12/14/18 09:57 12/14/18 09:57 12/14/18 09:57 General: Oriented x3, Cooperative, Well developed HEENT: Atraumatic, PERRLA Oral: Moist Mucosa Neck: Supple, No JVD Lungs: Clear to auscultation, Normal air movement Cardiovascular: Regular rate, Regular Rhythm Abdomen: Bowel Sounds Present, Soft, Non Tender, No Hepato-splenomegaly Extremities: No clubbing, Edema, - - Anterior and posterior ulcers Wound Measurements and Assessment WC - Nurse 1 - General Ulcer Measurement Start: 12/14/18 09:57 Freq: Status: Active Protocol: Activity Type Activity Date Activity User E-Sign Co-Sign Detail Recorded Client Recorded Date Recorded By Document 12/14/18 09:57 RB [id number] 12/14/18 10:02 RB 12/14/18 09:57 Wound Center Nurse 1 [Ulcer Assessment] #3 Posterior LLE Cluster -Combined with other wound No -Current Size (cm) - Length 9 -Current Size (cm) - Width 7.9 -Current Size (cm) - Depth 0.2 -Total Square Cm 71.1 -Tunneling No -Undermining/Tunneling No -Circular Undermining No -Exudate Amt Small -Exudate Type Serosanguineous -Wound Margin Flat & Intact -Granulation Amt Medium (34-66%) -Granulation Quality [place] -Slough/Fibrin Yes -Necrosis Amt Small (1-33%) -Necrotic Tissue Type Adherent Slough -Structure Exposed N/A -Texture (Denisse-wound Skin Appearance) Assessed -Moisture (Denises-wound Skin Appearance Assessed ) -Color (Denisse-wound Skin Appearance) Assessed -Temperature (Denisse-wound Skin No Abnormality Appearance) (Pt Warm) -Tenderness on Palpation (Denisse-wound No Skin Appearance) -Ulcer Cleansing Wound Cleanser -Foul Odor after Cleansing No -Anesthetic Used 5% Lidocaine Gel #2 Posterior RLE Cluster -Combined with other wound No -Current Size (cm) - Length 6 -Current Size (cm) - Width 5.3 -Current Size (cm) - Depth 0.1 -Total Square Cm 31.8 -Tunneling No -Undermining/Tunneling No -Circular Undermining No -Exudate Amt Medium -Exudate Type Serosanguineous -Wound Margin Flat & Intact -Granulation Amt Medium (34-66%) -Granulation Quality [place] -Slough/Fibrin Yes -Necrosis Amt Large (67-100%) -Necrotic Tissue Type Adherent Slough -Structure Exposed N/A -Texture (Denisse-wound Skin Appearance) Assessed -Moisture (Denisse-wound Skin Appearance Maceration ) -Color (Denisse-wound Skin Appearance) Assessed -Temperature (Denisse-wound Skin No Abnormality Appearance) (Pt Warm) -Tenderness on Palpation (Denisse-wound No Skin Appearance) -Ulcer Cleansing Wound Cleanser -Foul Odor after Cleansing No -Anesthetic Used 5% Lidocaine Gel #1 Right Reyes -Combined with other wound No -Current Size (cm) - Length 1 -Current Size (cm) - Width 1 -Current Size (cm) - Depth 0.1 -Total Square Cm 1 -Tunneling No -Undermining/Tunneling No -Circular Undermining No -Exudate Amt Small -Exudate Type Serosanguineous -Wound Margin Flat & Intact -Granulation Amt Small (1-33%) -Granulation Quality [place] -Slough/Fibrin Yes -Necrosis Amt Large (67-100%) -Necrotic Tissue Type Adherent Slough -Structure Exposed None/Limited to Skin Breakdown -Texture (Denisse-wound Skin Appearance) Assessed -Moisture (Denisse-wound Skin Appearance Assessed ) -Color (Denisse-wound Skin Appearance) Erythema -Temperature (Denisse-wound Skin No Abnormality Appearance) (Pt Warm) -Tenderness on Palpation (Denisse-wound No Skin Appearance) -Ulcer Cleansing Wound Cleanser -Foul Odor after Cleansing No -Anesthetic Used 4% Lidocaine Solution [Edema Assessment] -Lower Limb Edema Present Yes -Right Calf (cm) 45.1 -Right Ankle (cm) 26.5 -Left Calf (cm) 45.8 -Left Ankle (cm) 26.4 WC - Nurse 2 - General Ulcer CM Notes Start: 12/14/18 09:57 Freq: Status: Active Protocol: Activity Type Activity Date Activity User E-Sign Co-Sign Detail Recorded Client Recorded Date Recorded By Document 12/14/18 10:10 MW [id number] 12/14/18 10:19 MW 12/14/18 10:10 Wound Center Nurse 2 [Procedure/Treatment] #3 Posterior LLE Cluster -Time 10:10 -Correct Patient Yes -Correct Side, Site, Position Yes -Correct Procedure Yes -Procedure Performed Yes -Type of Procedure Debridement -Clinical Debridement Subcutaneous -Post Debridement Size (cm) - Length 8.0 -Post Debridement Size (cm) - Width 8.5 -Post Debridement Size (cm) - Depth 0.2 -Total Square Cm 68.00 -Wound/Ulcer Outcome Not Healed -Ulcer Cleansing Rinsed/ Irrigated with Saline -Foul Odor after Cleansing No -Bioengineered Tissue No -Bleeding Controlled with Pressure -Offloading No -Treatment Response Procedure Tolerated Well #2 Posterior RLE Cluster -Time 10:11 -Correct Patient Yes -Correct Side, Site, Position Yes -Correct Procedure Yes -Procedure Performed Yes -Type of Procedure Debridement -Clinical Debridement Subcutaneous -Post Debridement Size (cm) - Length 5.0 -Post Debridement Size (cm) - Width 5.5 -Post Debridement Size (cm) - Depth 0.2 -Total Square Cm 27.50 -Wound/Ulcer Outcome Not Healed -Ulcer Cleansing Rinsed/ Irrigated with Saline -Foul Odor after Cleansing No -Bioengineered Tissue No -Bleeding Controlled with Pressure -Offloading No -Treatment Response Procedure Tolerated Well #1 Right Reyes -Time 10:11 -Correct Patient Yes -Correct Side, Site, Position Yes -Correct Procedure Yes -Procedure Performed Yes -Type of Procedure Debridement -Clinical Debridement Subcutaneous -Post Debridement Size (cm) - Length 1.0 -Post Debridement Size (cm) - Width 1.2 -Post Debridement Size (cm) - Depth 0.2 -Total Square Cm 1.20 -Wound/Ulcer Outcome Not Healed -Ulcer Cleansing Rinsed/ Irrigated with Saline -Foul Odor after Cleansing No -Bioengineered Tissue No -Bleeding Controlled with Pressure -Offloading No -Treatment Response Procedure Tolerated Well [See Physician Procedure note for Specifics] Pain Scale: 0-10 Numeric [Pain] -Is Patient Pain Free? Yes Musculoskeletal: No Tenderness to Palpation of Joints or Extremities Lymphatic: No Cervical, Supraclavicular, or Inguinal Adenopathy Neurological: Cranial nerves II-XII grossly intact, Neuro grossly intact Psych/Mental Status: Normal Affect, Appropriate Debridement Note Post-Debridement Measurements/Treatment WC - Nurse 2 - General Ulcer CM Notes Start: 12/14/18 09:57 Freq: Status: Active Protocol: Activity Type Activity Date Activity User E-Sign Co-Sign Detail Recorded Client Recorded Date Recorded By Document 12/14/18 10:10 MW [id number] 12/14/18 10:19 MW 12/14/18 10:10 Wound Center Nurse 2 #3 Posterior LLE Cluster -Time 10:10 -Correct Patient Yes -Correct Side, Site, Position Yes -Correct Procedure Yes -Procedure Performed Yes -Type of Procedure Debridement -Clinical Debridement Subcutaneous -Post Debridement Size (cm) - Length 8.0 -Post Debridement Size (cm) - Width 8.5 -Post Debridement Size (cm) - Depth 0.2 -Total Square Cm 68.00 -Wound/Ulcer Outcome Not Healed -Ulcer Cleansing Rinsed/ Irrigated with Saline -Foul Odor after Cleansing No -Bioengineered Tissue No -Bleeding Controlled with Pressure -Offloading No -Treatment Response Procedure Tolerated Well #2 Posterior RLE Cluster -Time 10:11 -Correct Patient Yes -Correct Side, Site, Position Yes -Correct Procedure Yes -Procedure Performed Yes -Type of Procedure Debridement -Clinical Debridement Subcutaneous -Post Debridement Size (cm) - Length 5.0 -Post Debridement Size (cm) - Width 5.5 -Post Debridement Size (cm) - Depth 0.2 -Total Square Cm 27.50 -Wound/Ulcer Outcome Not Healed -Ulcer Cleansing Rinsed/ Irrigated with Saline -Foul Odor after Cleansing No -Bioengineered Tissue No -Bleeding Controlled with Pressure -Offloading No -Treatment Response Procedure Tolerated Well #1 Right Reyes -Time 10:11 -Correct Patient Yes -Correct Side, Site, Position Yes -Correct Procedure Yes -Procedure Performed Yes -Type of Procedure Debridement -Clinical Debridement Subcutaneous -Post Debridement Size (cm) - Length 1.0 -Post Debridement Size (cm) - Width 1.2 -Post Debridement Size (cm) - Depth 0.2 -Total Square Cm 1.20 -Wound/Ulcer Outcome Not Healed -Ulcer Cleansing Rinsed/ Irrigated with Saline -Foul Odor after Cleansing No -Bioengineered Tissue No -Bleeding Controlled with Pressure -Offloading No -Treatment Response Procedure Tolerated Well Pain Scale: 0-10 Numeric Is Patient Pain Free? Yes Wound debrided: Right reyes Type of Debridement: Excisional debridement Anesthesia Used: 5% Lidocaine Gel Depth: Down to and including healthy tissue Percentage of wound debrided: 100 Instrument Used: 5mm curette Tissue Removed: Slough Severity: Limited To Skin Breakdown Amount of bleeding with debridement: None Patient tolerated procedure well - Additional Wound Wound debrided: Right posterior calf Laterality: Right Type of Debridement: Excisional debridement Anesthesia Used: 5% Lidocaine Gel Depth: Down to and including healthy tissue, in the subcutaneous layer Percentage of wound debrided: 100 Instrument Used: 5mm curette Tissue Removed: Slough Severity: Limited To Skin Breakdown Amount of bleeding with debridement: Mild Bleeding Controlled with: Compression and gauze Patient tolerated procedure: Patient tolerated procedure well - Additional Wound Wound debrided: Left posterior calf Type of Debridement: Excisional debridement Anesthesia Used: 5% Lidocaine Gel Depth: Down to and including healthy tissue, in the subcutaneous layer Percentage of wound debrided: 100 Instrument Used: 5mm curette Tissue Removed: Slough Severity: Fat Layer Exposed Amount of bleeding with debridement: Mild Bleeding Controlled with: Compression and gauze Patient tolerated procedure: Patient tolerated procedure well Assessment/Plan Active Problems Edema of lower extremity (Chronic) Edema of lower extremity due to peripheral venous insufficiency (Chronic) Non-pressure ulcer of lower extremity with fat layer exposed (Acute) Smoking addiction (Chronic) Assessment: Peripheral vascular disease with ulcers. Smoker. Edema lower extremities. Cellulitis Plan: Wash legs with antibacterial soaps. Apply Santyl to wound base cover Adaptic gauze Jocelyn ABDs. Single layer Tubigrip to both legs. Follow-up in 1 week
[2018-12-21 09:17] VITALS: BP 140/73; PULSE 68; RESP 16; TEMP 35.5
--- NOTE | 2018-12-21 12:07 | PCM.WC.PN ---
(1) Non-pressure ulcer of lower extremity with fat layer exposed Status: Acute Current Visit: Yes Code(s): L97.902 - Non-pressure chronic ulcer of unspecified part of unspecified lower leg with fat layer exposed (2) Smoking addiction Status: Chronic Current Visit: Yes Code(s): F17.200 - Nicotine dependence, unspecified, uncomplicated (3) Edema of lower extremity Status: Chronic Current Visit: Yes Code(s): R60.0 - Localized edema (4) Edema of lower extremity due to peripheral venous insufficiency Status: Chronic Current Visit: Yes Code(s): I87.2 - Venous insufficiency (chronic) (peripheral) Type of Wound Date of Service: 12/21/18 Chief Complaint: Follow-up on lower leg edema and ulcers History of Wound: 78-year-old white female that was referred to us from her family doctor from [place]. Approximately October 30 woke up one day and had severe edema of her lower extremities that she was unable to walk. Her daughter visits her daily noticed she had open sores on lower extremities and was oozing fluid. Went that she could not walk they took her by ambulance to the [facility]. Patient had an elevated BNP and was kept in the hospital for couple of days and discharged on water pills. Audiogram was normal has some valve problems no A. fib and history of hypertension and high cholesterol had her carotids cleared couple years ago. Today she has ulcers on the anterior and posterior right leg and posterior left leg. Typically irregular and edging well demarcated as you will see it in an arterial problem. We will get cultures of the wounds pre-albumin and we will have an AB study done and venous study of her lower extremities. Progress of Wound: Today the ulcers are becoming more defined and smaller left leg is better than the right leg but still have some depth. Debridement of a lot of slough this week was much easier. We switched to Santyl and its doing a much better job of debridement. The cost is expensive because the pharmacist did not use the co-pay card they used her insurance. The edema is much improved. Patient has heard from the vascular surgeon needs to call them back. - Physical Exam Vital Signs Temp Pulse Resp BP 95.9 F L 68 16 140/73 H 12/21/18 09:17 12/21/18 09:17 12/21/18 09:17 12/21/18 09:17 General: Oriented x3, Cooperative, Well developed HEENT: Atraumatic, PERRLA Oral: Moist Mucosa Neck: Supple, No JVD Lungs: Clear to auscultation, Normal air movement Cardiovascular: Regular rate, Regular Rhythm Abdomen: Bowel Sounds Present, Soft, Non Tender, No Hepato-splenomegaly Extremities: No clubbing, No edema Skin: Ulcer/ Wound - Bilateral posterior lower legs and right anterior reyes Wound Measurements and Assessment WC - Nurse 1 - General Ulcer Measurement Start: 12/14/18 09:57 Freq: Status: Active Protocol: Activity Type Activity Date Activity User E-Sign Co-Sign Detail Recorded Client Recorded Date Recorded By Document 12/21/18 09:17 [facility] [id number] 12/21/18 09:28 [facility] 12/21/18 09:17 Wound Center Nurse 1 [Ulcer Assessment] #3 Posterior LLE Cluster -Combined with other wound No -Current Size (cm) - Length 9 -Current Size (cm) - Width 8.4 -Current Size (cm) - Depth 0.2 -Total Square Cm 75.6 -Photo Taken No -Epithelialization Small 1-33% -Tunneling No -Undermining/Tunneling No -Circular Undermining No -Exudate Amt Small -Exudate Type Serous -Wound Margin Flat & Intact -Granulation Amt Medium (34-66%) -Granulation Quality Red -Slough/Fibrin Yes -Necrosis Amt Medium (34-66%) -Necrotic Tissue Type Adherent Slough -Texture (Denisse-wound Skin Appearance) Assessed, Scarring -Moisture (Denisse-wound Skin Appearance Assessed ) -Color (Denisse-wound Skin Appearance) Assessed, Erythema -Temperature (Denisse-wound Skin No Abnormality Appearance) (Pt Warm) -Tenderness on Palpation (Denisse-wound Yes Skin Appearance) -Ulcer Cleansing Rinsed/ Irrigated with Saline -Foul Odor after Cleansing No -Anesthetic Used 4% Lidocaine Solution #2 Posterior RLE Cluster -Combined with other wound No -Current Size (cm) - Length 5.6 -Current Size (cm) - Width 5.2 -Current Size (cm) - Depth 0.1 -Total Square Cm 29.12 -Photo Taken No -Epithelialization Small 1-33% -Tunneling No -Undermining/Tunneling No -Circular Undermining No -Exudate Amt Small -Exudate Type Serous -Wound Margin Flat & Intact -Granulation Amt Medium (34-66%) -Granulation Quality Red -Slough/Fibrin Yes -Necrosis Amt Medium (34-66%) -Necrotic Tissue Type Adherent Slough -Texture (Denisse-wound Skin Appearance) Assessed, Scarring -Moisture (Denisse-wound Skin Appearance Assessed ) -Color (Denisse-wound Skin Appearance) Assessed, Erythema -Temperature (Denisse-wound Skin No Abnormality Appearance) (Pt Warm) -Tenderness on Palpation (Denisse-wound No Skin Appearance) -Ulcer Cleansing Rinsed/ Irrigated with Saline -Foul Odor after Cleansing No -Anesthetic Used 4% Lidocaine Solution #1 Right Reyes -Combined with other wound No -Current Size (cm) - Length 0.8 -Current Size (cm) - Width 1 -Current Size (cm) - Depth 0.1 -Total Square Cm 0.8 -Photo Taken No -Epithelialization Small 1-33% -Tunneling No -Undermining/Tunneling No -Circular Undermining No -Exudate Amt Small -Exudate Type Serous -Wound Margin Flat & Intact -Granulation Amt Small (1-33%) -Granulation Quality [place] -Slough/Fibrin Yes -Necrosis Amt Large (67-100%) -Necrotic Tissue Type Adherent Slough -Texture (Denisse-wound Skin Appearance) Assessed, Scarring -Moisture (Denisse-wound Skin Appearance Assessed ) -Color (Denisse-wound Skin Appearance) Assessed, Erythema -Temperature (Denisse-wound Skin No Abnormality Appearance) (Pt Warm) -Tenderness on Palpation (Denisse-wound No Skin Appearance) -Ulcer Cleansing Rinsed/ Irrigated with Saline -Foul Odor after Cleansing No -Anesthetic Used 4% Lidocaine Solution [Edema Assessment] -Lower Limb Edema Present Yes -Right Calf (cm) 44.9 -Right Ankle (cm) 27.5 -Left Calf (cm) 46.5 -Left Ankle (cm) 26.5 WC - Nurse 2 - General Ulcer CM Notes Start: 12/14/18 09:57 Freq: Status: Active Protocol: Activity Type Activity Date Activity User E-Sign Co-Sign Detail Recorded Client Recorded Date Recorded By Document 12/21/18 09:39 MW [id number] 12/21/18 09:46 MW 12/21/18 09:39 Wound Center Nurse 2 [Procedure/Treatment] #3 Posterior LLE Cluster -Time 09:39 -Correct Patient Yes -Correct Side, Site, Position Yes -Correct Procedure Yes -Procedure Performed Yes -Type of Procedure Debridement -Clinical Debridement Subcutaneous -Post Debridement Size (cm) - Length 7.5 -Post Debridement Size (cm) - Width 9.0 -Post Debridement Size (cm) - Depth 0.2 -Total Square Cm 67.50 -Wound/Ulcer Outcome Not Healed -Ulcer Cleansing Rinsed/ Irrigated with Saline -Foul Odor after Cleansing No -Bioengineered Tissue No -Bleeding Controlled with Pressure -Offloading No -Treatment Response Procedure Tolerated Well #2 Posterior RLE Cluster -Time 09:40 -Correct Patient Yes -Correct Side, Site, Position Yes -Correct Procedure Yes -Procedure Performed Yes -Type of Procedure Debridement -Clinical Debridement Subcutaneous -Post Debridement Size (cm) - Length 5.0 -Post Debridement Size (cm) - Width 4.5 -Post Debridement Size (cm) - Depth 0.1 -Total Square Cm 22.50 -Wound/Ulcer Outcome Not Healed -Ulcer Cleansing Rinsed/ Irrigated with Saline -Foul Odor after Cleansing No -Bioengineered Tissue No -Bleeding Controlled with Pressure -Offloading No -Treatment Response Procedure Tolerated Well #1 Right Reyes -Time 09:40 -Correct Patient Yes -Correct Side, Site, Position Yes -Correct Procedure Yes -Procedure Performed Yes -Type of Procedure Debridement -Clinical Debridement Subcutaneous -Post Debridement Size (cm) - Length 0.7 -Post Debridement Size (cm) - Width 1.0 -Post Debridement Size (cm) - Depth 0.2 -Total Square Cm 0.70 -Wound/Ulcer Outcome Not Healed -Ulcer Cleansing Rinsed/ Irrigated with Saline -Foul Odor after Cleansing No -Bioengineered Tissue No -Bleeding Controlled with Pressure -Offloading No -Treatment Response Procedure Tolerated Well [See Physician Procedure note for Specifics] Pain Scale: 0-10 Numeric [Pain] -Is Patient Pain Free? Yes Musculoskeletal: No Tenderness to Palpation of Joints or Extremities Lymphatic: No Cervical, Supraclavicular, or Inguinal Adenopathy Neurological: Cranial nerves II-XII grossly intact, Neuro grossly intact Psych/Mental Status: Normal Affect, Appropriate Debridement Note Post-Debridement Measurements/Treatment WC - Nurse 2 - General Ulcer CM Notes Start: 12/14/18 09:57 Freq: Status: Active Protocol: Activity Type Activity Date Activity User E-Sign Co-Sign Detail Recorded Client Recorded Date Recorded By Document 12/14/18 10:10 MW [id number] 12/14/18 10:19 MW Document 12/21/18 09:39 MW [id number] 12/21/18 09:46 MW 12/14/18 12/21/18 10:10 09:39 Wound Center Nurse 2 #3 Posterior LLE Cluster -Time 10:10 09:39 -Correct Patient Yes Yes -Correct Side, Site, Position Yes Yes -Correct Procedure Yes Yes -Procedure Performed Yes Yes -Type of Procedure Debridement Debridement -Clinical Debridement Subcutaneous Subcutaneous -Post Debridement Size (cm) - Length 8.0 7.5 -Post Debridement Size (cm) - Width 8.5 9.0 -Post Debridement Size (cm) - Depth 0.2 0.2 -Total Square Cm 68.00 67.50 -Wound/Ulcer Outcome Not Healed Not Healed -Ulcer Cleansing Rinsed/ Rinsed/ Irrigated with Irrigated with Saline Saline -Foul Odor after Cleansing No No -Bioengineered Tissue No No -Bleeding Controlled with Pressure Pressure -Offloading No No -Treatment Response Procedure Procedure Tolerated Well Tolerated Well #2 Posterior RLE Cluster -Time 10:11 09:40 -Correct Patient Yes Yes -Correct Side, Site, Position Yes Yes -Correct Procedure Yes Yes -Procedure Performed Yes Yes -Type of Procedure Debridement Debridement -Clinical Debridement Subcutaneous Subcutaneous -Post Debridement Size (cm) - Length 5.0 5.0 -Post Debridement Size (cm) - Width 5.5 4.5 -Post Debridement Size (cm) - Depth 0.2 0.1 -Total Square Cm 27.50 22.50 -Wound/Ulcer Outcome Not Healed Not Healed -Ulcer Cleansing Rinsed/ Rinsed/ Irrigated with Irrigated with Saline Saline -Foul Odor after Cleansing No No -Bioengineered Tissue No No -Bleeding Controlled with Pressure Pressure -Offloading No No -Treatment Response Procedure Procedure Tolerated Well Tolerated Well #1 Right Reyes -Time 10:11 09:40 -Correct Patient Yes Yes -Correct Side, Site, Position Yes Yes -Correct Procedure Yes Yes -Procedure Performed Yes Yes -Type of Procedure Debridement Debridement -Clinical Debridement Subcutaneous Subcutaneous -Post Debridement Size (cm) - Length 1.0 0.7 -Post Debridement Size (cm) - Width 1.2 1.0 -Post Debridement Size (cm) - Depth 0.2 0.2 -Total Square Cm 1.20 0.70 -Wound/Ulcer Outcome Not Healed Not Healed -Ulcer Cleansing Rinsed/ Rinsed/ Irrigated with Irrigated with Saline Saline -Foul Odor after Cleansing No No -Bioengineered Tissue No No -Bleeding Controlled with Pressure Pressure -Offloading No No -Treatment Response Procedure Procedure Tolerated Well Tolerated Well Pain Scale: 0-10 Numeric Is Patient Pain Free? Yes Yes Wound debrided: Right anterior reyes Type of Debridement: Excisional debridement Anesthesia Used: 5% Lidocaine Gel Depth: Down to and including healthy tissue Percentage of wound debrided: 100 Instrument Used: 5mm curette Tissue Removed: Fibrin Severity: Limited To Skin Breakdown Amount of bleeding with debridement: Mild Bleeding Controlled with: Compression and gauze Patient tolerated procedure well - Additional Wound Wound debrided: Right posterior lower leg Type of Debridement: Excisional debridement Anesthesia Used: 5% Lidocaine Gel Depth: Down to and including healthy tissue, in the subcutaneous layer Percentage of wound debrided: 100 Instrument Used: 5mm curette Tissue Removed: Slough Severity: Limited To Skin Breakdown Amount of bleeding with debridement: Mild Bleeding Controlled with: Compression and gauze Patient tolerated procedure: Patient tolerated procedure well - Additional Wound Wound debrided: Left posterior lower leg Type of Debridement: Excisional debridement Anesthesia Used: 5% Lidocaine Gel Depth: Down to and including healthy tissue, in the subcutaneous layer Percentage of wound debrided: 100 Instrument Used: 5mm curette Tissue Removed: Slough Severity: Limited To Skin Breakdown Amount of bleeding with debridement: Mild Bleeding Controlled with: Compression and gauze Patient tolerated procedure: Patient tolerated procedure well Assessment/Plan Active Problems Edema of lower extremity (Chronic) Edema of lower extremity due to peripheral venous insufficiency (Chronic) Non-pressure ulcer of lower extremity with fat layer exposed (Acute) Smoking addiction (Chronic) Assessment: Peripheral vascular disease with ulcers. Smoker. Edema lower extremities. Cellulitis Plan: Wash legs with antibacterial soaps. Apply Santyl to wound base cover Adaptic gauze Jocelyn ABDs. Single layer Tubigrip to both legs. Follow-up in 2 week
[2019-01-04 09:38] VITALS: BP 111/60; PULSE 69; RESP 18; TEMP 36.2
--- NOTE | 2019-01-04 10:18 | PN.PCM_ITS ---
(1) Non-pressure ulcer of lower extremity with fat layer exposed Status: Acute Current Visit: Yes Code(s): L97.902 - Non-pressure chronic ulcer of unspecified part of unspecified lower leg with fat layer exposed (2) Smoking addiction Status: Chronic Current Visit: Yes Code(s): F17.200 - Nicotine dependence, unspecified, uncomplicated (3) Edema of lower extremity Status: Chronic Current Visit: Yes Code(s): R60.0 - Localized edema (4) Edema of lower extremity due to peripheral venous insufficiency Status: Chronic Current Visit: Yes Code(s): I87.2 - Venous insufficiency (chronic) (peripheral) Type of Wound Date of Service: 01/04/19 Chief Complaint: Follow-up on lower leg edema and ulcers History of Wound: 78-year-old white female that was referred to us from her family doctor from [place]. Approximately October 30 woke up one day and had severe edema of her lower extremities that she was unable to walk. Her daughter visits her daily noticed she had open sores on lower extremities and was oozing fluid. Went that she could not walk they took her by ambulance to the [facility]. Patient had an elevated BNP and was kept in the hospital for couple of days and discharged on water pills. Audiogram was normal has some valve problems no A. fib and history of hypertension and high cholesterol had her carotids cleared couple years ago. Today she has ulcers on the anterior and posterior right leg and posterior left leg. Typically irregular and edging well demarcated as you will see it in an arterial problem. We will get cultures of the wounds pre- albumin and we will have an AB study done and venous study of her lower extremities. Progress of Wound: Today the ulcers are becoming more defined and smaller left leg is better than the right leg but still have some depth. Debridement of a lot of slough this week was much easier. We switched to Santyl and its doing a much better job of debridement. The edema is much improved. Right reyes healed right posterior cluster of healed. - Physical Exam Vital Signs Temp Pulse Resp BP 97.1 F L 69 18 111/60 01/04/19 09:38 01/04/19 09:38 01/04/19 09:38 01/04/19 09:38 General: Oriented x3, Cooperative, Well developed HEENT: Atraumatic, PERRLA Oral: Moist Mucosa Neck: Supple, No JVD Lungs: Clear to auscultation, Normal air movement Cardiovascular: Regular rate, Regular Rhythm Abdomen: Bowel Sounds Present, Soft, Non Tender, No Hepato-splenomegaly Extremities: No clubbing, No edema, - - Right and left posterior calf and right reyes area Wound Measurements and Assessment WC - Nurse 1 - General Ulcer Measurement Start: 12/14/18 09:57 Freq: Status: Active Protocol: Activity Type Activity Date Activity User E-Sign Co-Sign Detail Recorded Client Recorded Date Recorded By Document 01/04/19 09:38 [facility] [id number] 01/04/19 09:46 [facility] 01/04/19 09:38 Wound Center Nurse 1 [Ulcer Assessment] #3 Posterior LLE Cluster -Combined with other wound No -Current Size (cm) - Length 8.9 -Current Size (cm) - Width 7.7 -Current Size (cm) - Depth 0.2 -Total Square Cm 68.53 -Tunneling No -Undermining/Tunneling No -Exudate Amt Small -Exudate Type Serosanguineous -Wound Margin Flat & Intact -Granulation Amt Small (1-33%) -Granulation Quality Red -Slough/Fibrin Yes -Necrosis Amt Large (67-100%) -Necrotic Tissue Type Adherent Slough -Structure Exposed N/A -Texture (Denisse-wound Skin Appearance) Scarring -Moisture (Denisse-wound Skin Appearance Assessed ) -Color (Denisse-wound Skin Appearance) Assessed -Temperature (Denisse-wound Skin No Abnormality Appearance) (Pt Warm) -Tenderness on Palpation (Denisse-wound No Skin Appearance) -Ulcer Cleansing Wound Cleanser -Foul Odor after Cleansing No -Anesthetic Used 4% Lidocaine Solution #2 Posterior RLE Cluster -Combined with other wound No -Current Size (cm) - Length 1.2 -Current Size (cm) - Width 3.4 -Current Size (cm) - Depth 0.1 -Total Square Cm 4.08 -Tunneling No -Undermining/Tunneling No -Circular Undermining No -Exudate Amt Small -Exudate Type Serosanguineous -Wound Margin Flat & Intact -Granulation Amt Medium (34-66%) -Granulation Quality Red -Slough/Fibrin Yes -Necrosis Amt Medium (34-66%) -Necrotic Tissue Type Adherent Slough -Structure Exposed N/A -Texture (Denisse-wound Skin Appearance) Scarring -Moisture (Denisse-wound Skin Appearance Assessed ) -Color (Denisse-wound Skin Appearance) Assessed -Temperature (Denisse-wound Skin No Abnormality Appearance) (Pt Warm) -Tenderness on Palpation (Denisse-wound No Skin Appearance) -Ulcer Cleansing Wound Cleanser -Foul Odor after Cleansing No -Anesthetic Used 4% Lidocaine Solution #1 Right Reyes -Combined with other wound No -Current Size (cm) - Length 0.1 -Current Size (cm) - Width 0.1 -Current Size (cm) - Depth 0.1 -Total Square Cm 0.01 -Tunneling No -Undermining/Tunneling No -Circular Undermining No -Exudate Amt Small -Exudate Type Serosanguineous -Wound Margin Flat & Intact -Granulation Amt Medium (34-66%) -Granulation Quality [place] -Slough/Fibrin Yes -Necrosis Amt Medium (34-66%) -Necrotic Tissue Type Adherent Slough -Structure Exposed N/A -Texture (Denisse-wound Skin Appearance) Assessed, Scarring -Moisture (Denisse-wound Skin Appearance Assessed ) -Color (Denisse-wound Skin Appearance) Assessed -Temperature (Denisse-wound Skin No Abnormality Appearance) (Pt Warm) -Tenderness on Palpation (Denisse-wound No Skin Appearance) -Ulcer Cleansing Wound Cleanser -Foul Odor after Cleansing No -Anesthetic Used 4% Lidocaine Solution [Edema Assessment] -Lower Limb Edema Present Yes -Right Calf (cm) 45.7 -Right Ankle (cm) 25.4 -Left Calf (cm) 48 -Left Ankle (cm) 26.5 WC - Nurse 2 - General Ulcer CM Notes Start: 12/14/18 09:57 Freq: Status: Active Protocol: Activity Type Activity Date Activity User E-Sign Co-Sign Detail Recorded Client Recorded Date Recorded By Document 01/04/19 10:01 MW [id number] 01/04/19 10:05 MW 01/04/19 10:01 Wound Center Nurse 2 [Procedure/Treatment] #3 Posterior LLE Cluster -Time 10:01 -Correct Patient Yes -Correct Side, Site, Position Yes -Correct Procedure Yes -Procedure Performed Yes -Type of Procedure Debridement -Clinical Debridement Subcutaneous -Post Debridement Size (cm) - Length 3.7 -Post Debridement Size (cm) - Width 8.0 -Post Debridement Size (cm) - Depth 0.2 -Total Square Cm 29.60 -Wound/Ulcer Outcome Not Healed -Ulcer Cleansing Rinsed/ Irrigated with Saline -Foul Odor after Cleansing No -Bioengineered Tissue No -Bleeding Controlled with Pressure -Offloading No -Treatment Response Procedure Tolerated Well #2 Posterior RLE Cluster -Time 10:02 -Correct Patient Yes -Correct Side, Site, Position Yes -Correct Procedure Yes -Procedure Performed No -Post Debridement Size (cm) - Length 0 -Post Debridement Size (cm) - Width 0 -Post Debridement Size (cm) - Depth 0 -Total Square Cm 0 -Wound/Ulcer Outcome Healed- Epithelialized -Ulcer Cleansing Rinsed/ Irrigated with Saline -Treatment Response Procedure Tolerated Well #1 Right Reyes -Time 10:02 -Correct Patient Yes -Correct Side, Site, Position Yes -Correct Procedure Yes -Procedure Performed No -Post Debridement Size (cm) - Length 0 -Post Debridement Size (cm) - Width 0 -Post Debridement Size (cm) - Depth 0 -Total Square Cm 0 -Wound/Ulcer Outcome Healed- Epithelialized [See Physician Procedure note for Specifics] Pain Scale: 0-10 Numeric [Pain] -Is Patient Pain Free? Yes Musculoskeletal: No Tenderness to Palpation of Joints or Extremities Lymphatic: No Cervical, Supraclavicular, or Inguinal Adenopathy Neurological: Cranial nerves II-XII grossly intact, Neuro grossly intact Psych/Mental Status: Normal Affect, Appropriate Debridement Note Post-Debridement Measurements/Treatment WC - Nurse 2 - General Ulcer CM Notes Start: 12/14/18 09:57 Freq: Status: Active Protocol: Activity Type Activity Date Activity User E-Sign Co-Sign Detail Recorded Client Recorded Date Recorded By Document 12/14/18 10:10 MW [id number] 12/14/18 10:19 MW Document 12/21/18 09:39 MW [id number] 12/21/18 09:46 MW Document 01/04/19 10:01 MW [id number] 01/04/19 10:05 MW 12/14/18 12/21/18 01/04/19 10:10 09:39 10:01 Wound Center Nurse 2 #3 Posterior LLE Cluster -Time 10:10 09:39 10:01 -Correct Patient Yes Yes Yes -Correct Side, Site, Position Yes Yes Yes -Correct Procedure Yes Yes Yes -Procedure Performed Yes Yes Yes -Type of Procedure Debridement Debridement Debridement -Clinical Debridement Subcutaneous Subcutaneous Subcutaneous -Post Debridement Size (cm) - Length 8.0 7.5 3.7 -Post Debridement Size (cm) - Width 8.5 9.0 8.0 -Post Debridement Size (cm) - Depth 0.2 0.2 0.2 -Total Square Cm 68.00 67.50 29.60 -Wound/Ulcer Outcome Not Healed Not Healed Not Healed -Ulcer Cleansing Rinsed/ Rinsed/ Rinsed/ Irrigated with Irrigated with Irrigated with Saline Saline Saline -Foul Odor after Cleansing No No No -Bioengineered Tissue No No No -Bleeding Controlled with Pressure Pressure Pressure -Offloading No No No -Treatment Response Procedure Procedure Procedure Tolerated Well Tolerated Well Tolerated Well #2 Posterior RLE Cluster -Time 10:04 20: 10:02 -Correct Patient Yes Yes Yes -Correct Side, Site, Position Yes Yes Yes -Correct Procedure Yes Yes Yes -Procedure Performed Yes Yes No -Type of Procedure Debridement Debridement -Clinical Debridement Subcutaneous Subcutaneous -Post Debridement Size (cm) - Length 5.0 5.0 0 -Post Debridement Size (cm) - Width 5.5 4.5 0 -Post Debridement Size (cm) - Depth 0.2 0.1 0 -Total Square Cm 27.50 22.50 0 -Wound/Ulcer Outcome Not Healed Not Healed Healed- Epithelialized -Ulcer Cleansing Rinsed/ Rinsed/ Rinsed/ Irrigated with Irrigated with Irrigated with Saline Saline Saline -Foul Odor after Cleansing No No -Bioengineered Tissue No No -Bleeding Controlled with Pressure Pressure -Offloading No No -Treatment Response Procedure Procedure Procedure Tolerated Well Tolerated Well Tolerated Well #1 Right Reyes -Time 10:04 20:40 10:02 -Correct Patient Yes Yes Yes -Correct Side, Site, Position Yes Yes Yes -Correct Procedure Yes Yes Yes -Procedure Performed Yes Yes No -Type of Procedure Debridement Debridement -Clinical Debridement Subcutaneous Subcutaneous -Post Debridement Size (cm) - Length 1.0 0.7 0 -Post Debridement Size (cm) - Width 1.2 1.0 0 -Post Debridement Size (cm) - Depth 0.2 0.2 0 -Total Square Cm 1.20 0.70 0 -Wound/Ulcer Outcome Not Healed Not Healed Healed- Epithelialized -Ulcer Cleansing Rinsed/ Rinsed/ Irrigated with Irrigated with Saline Saline -Foul Odor after Cleansing No No -Bioengineered Tissue No No -Bleeding Controlled with Pressure Pressure -Offloading No No -Treatment Response Procedure Procedure Tolerated Well Tolerated Well Pain Scale: 0-10 Numeric Is Patient Pain Free? Yes Yes Yes Wound debrided: Left posterior calf Type of Debridement: Excisional debridement Anesthesia Used: 5% Lidocaine Gel Depth: Down to and including healthy tissue, in the subcutaneous layer Percentage of wound debrided: 100 Instrument Used: 7mm curette Tissue Removed: Slough Severity: Limited To Skin Breakdown Amount of bleeding with debridement: Mild Bleeding Controlled with: Compression and gauze Patient tolerated procedure well Assessment/Plan Active Problems Edema of lower extremity (Chronic) Edema of lower extremity due to peripheral venous insufficiency (Chronic) Non-pressure ulcer of lower extremity with fat layer exposed (Acute) Smoking addiction (Chronic) Assessment: Peripheral vascular disease with ulcers. Smoker. Edema lower extremities. Cellulitis Plan: Wash legs with antibacterial soaps. Apply Santyl to wound base cover Adaptic gauze Jocelyn ABDs. Single layer Tubigrip to both legs. Follow-up in 1 week
== END 2019-01-09 23:59 ==
LOC: WC 09:30
PROVIDERS: Family Provider Family Medicine; PCP Family Medicine; Visit Provider Nurse Practitioner
DX: I73.9 Peripheral vascular disease, unspecified (principal); I87.2 Venous insufficiency (chronic) (peripheral); R60.0 Localized edema; F17.200 Nicotine dependence, unspecified, uncomplicated; L97.811 Non-pressure chronic ulcer of other part of right lower leg limited to breakdown of skin; L97.222 Non-pressure chronic ulcer of left calf with fat layer exposed; L97.211 Non-pressure chronic ulcer of right calf limited to breakdown of skin; E78.00 Pure hypercholesterolemia, unspecified; I10 Essential (primary) hypertension
CPT/HCPCS: 11042; 11045

== ENCOUNTER 2019-02-08 10:00 | Outpatient (RCR) | payer MEDICARE, OTHER, SELFPAY ==
[2019-01-10 00:59] VITALS: BP 111/60; PULSE 69; RESP 18; TEMP 36.2
[2019-01-11 09:51] VITALS: BP 155/69; PULSE 94; RESP 18; TEMP 36.3
--- NOTE | 2019-01-11 10:45 | PN.PCM_ITS ---
(1) Peripheral vascular disease of lower extremity with ulceration Status: Acute Current Visit: Yes Code(s): I73.9 - Peripheral vascular disease, unspecified; L97.909 - Non-pressure chronic ulcer of unspecified part of unspecified lower leg with unspecified severity (2) History of multiple strokes Status: Chronic Current Visit: Yes Code(s): Z86.73 - Personal history of transient ischemic attack (TIA), and cerebral infarction without residual deficits (3) Non-pressure ulcer of lower extremity with fat layer exposed Status: Acute Current Visit: Yes Code(s): L97.902 - Non-pressure chronic ulcer of unspecified part of unspecified lower leg with fat layer exposed (4) Cellulitis Status: Chronic Current Visit: Yes Code(s): L03.90 - Cellulitis, unspecified (5) Cellulitis of lower extremity Status: Chronic Current Visit: Yes Code(s): L03.119 - Cellulitis of unspecified part of limb (6) Edema of lower extremity Status: Chronic Current Visit: Yes Code(s): R60.0 - Localized edema (7) Edema of lower extremity due to peripheral venous insufficiency Status: Chronic Current Visit: Yes Code(s): I87.2 - Venous insufficiency (chronic) (peripheral) (8) Peripheral arterial occlusive disease Status: Chronic Current Visit: Yes Code(s): I77.9 - Disorder of arteries and arterioles, unspecified (9) Peripheral vascular disease Status: Chronic Current Visit: Yes Code(s): I73.9 - Peripheral vascular disease, unspecified Type of Wound Date of Service: 01/11/19 Chief Complaint: Follow-up on lower leg edema and ulcers History of Wound: 78-year-old white female that was referred to us from her family doctor from [place]. Approximately October 30 woke up one day and had severe edema of her lower extremities that she was unable to walk. Her daughter visits her daily noticed she had open sores on lower extremities and was oozing fluid. Went that she could not walk they took her by ambulance to the [facility]. Patient had an elevated BNP and was kept in the hospital for couple of days and discharged on water pills. Audiogram was normal has some valve problems no A. fib and history of hypertension and high cholesterol had her carotids cleared couple years ago. Today she has ulcers on the anterior and posterior right leg and posterior left leg. Typically irregular and edging well demarcated as you will see it in an arterial problem. We will get cultures of the wounds pre- albumin and we will have an AB study done and venous study of her lower extremities. Progress of Wound: Today the ulcers are only on the left posterior leg still has some depth but is becoming half the size it was last week. We will switch her from Santyl now and try Gay in the wound base. She does have some edema on and off of the right leg with seepage of water that develops into skin breakdown and will try Xeroform on those superficial areas. Debridement of a lot of slough this week was much easier. The edema is much improved. She saw Dr. Natarajan last week and he still wants her to continue walking compression finish wound care and follow-up with him in 3 months. He wants her to continue the protein drinks. - Physical Exam Vital Signs Temp Pulse Resp BP 97.3 F L 94 18 155/69 H 01/11/19 09:51 01/11/19 09:51 01/11/19 09:51 01/11/19 09:51 General: Oriented x3, Cooperative, Well developed HEENT: Atraumatic, PERRLA Oral: Moist Mucosa Neck: Supple, No JVD Lungs: Clear to auscultation, Normal air movement Cardiovascular: Regular rate, Regular Rhythm Abdomen: Bowel Sounds Present, Soft, Non Tender, No Hepato-splenomegaly Extremities: No clubbing, No edema, - - Left posterior wounds cluster Skin: Ulcer/ Wound - Left posterior cluster ulcer Wound Measurements and Assessment WC - Nurse 1 - General Ulcer Measurement Start: 01/11/19 09:27 Freq: Status: Active Protocol: Activity Type Activity Date Activity User E-Sign Co-Sign Detail Recorded Client Recorded Date Recorded By Document 01/11/19 09:51 [id number] 01/11/19 09:55 01/11/19 09:51 Wound Center Nurse 1 [Ulcer Assessment] #3 Posterior LLE Cluster -Combined with other wound No -Current Size (cm) - Length 1.8 -Current Size (cm) - Width 2 -Current Size (cm) - Depth 0.1 -Total Square Cm 3.6 -Photo Taken No -Epithelialization Medium 34-66% -Tunneling No -Undermining/Tunneling No -Circular Undermining No -Exudate Amt Large -Exudate Type Serous -Wound Margin Fibrotic Scar, Thickened Scar -Granulation Amt Medium (34-66%) -Granulation Quality Pale -Slough/Fibrin Yes -Necrosis Amt None Present (0 %) -Necrotic Tissue Type Adherent Slough -Structure Exposed None/Limited to Skin Breakdown -Texture (Denisse-wound Skin Appearance) Assessed, Friable -Moisture (Denisse-wound Skin Appearance Assessed, ) Maceration -Color (Denisse-wound Skin Appearance) Assessed,Rubor -Temperature (Denisse-wound Skin No Abnormality Appearance) (Pt Warm) -Tenderness on Palpation (Denisse-wound No Skin Appearance) -Foul Odor after Cleansing No -Anesthetic Used 5% Lidocaine Gel [Edema Assessment] -Right Calf (cm) 43 -Right Ankle (cm) 28 -Left Calf (cm) 43 -Left Ankle (cm) 27 WC - Nurse 2 - General Ulcer CM Notes Start: 01/11/19 09:27 Freq: Status: Active Protocol: Activity Type Activity Date Activity User E-Sign Co-Sign Detail Recorded Client Recorded Date Recorded By Document 01/11/19 09:59 MW [id number] 01/11/19 10:09 MW 01/11/19 09:59 Wound Center Nurse 2 [Procedure/Treatment] #3 Posterior LLE Cluster -Time 10:00 -Correct Patient Yes -Correct Side, Site, Position Yes -Correct Procedure Yes -Procedure Performed Yes -Type of Procedure Debridement -Clinical Debridement Subcutaneous -Post Debridement Size (cm) - Length 7.0 -Post Debridement Size (cm) - Width 7.0 -Post Debridement Size (cm) - Depth 0.2 -Total Square Cm 49.00 -Wound/Ulcer Outcome Not Healed -Ulcer Cleansing Rinsed/ Irrigated with Saline -Foul Odor after Cleansing No -Bioengineered Tissue No -Bleeding Controlled with Pressure -Offloading No -Treatment Response Procedure Tolerated Well [See Physician Procedure note for Specifics] Pain Scale: 0-10 Numeric [Pain] -Is Patient Pain Free? Yes Musculoskeletal: No Tenderness to Palpation of Joints or Extremities Lymphatic: No Cervical, Supraclavicular, or Inguinal Adenopathy Neurological: Cranial nerves II-XII grossly intact, Neuro grossly intact Psych/Mental Status: Normal Affect, Appropriate Debridement Note Post-Debridement Measurements/Treatment WC - Nurse 2 - General Ulcer CM Notes Start: 01/11/19 09:27 Freq: Status: Active Protocol: Activity Type Activity Date Activity User E-Sign Co-Sign Detail Recorded Client Recorded Date Recorded By Document 01/11/19 09:59 MW [id number] 01/11/19 10:09 MW 01/11/19 09:59 Wound Center Nurse 2 #3 Posterior LLE Cluster -Time 10:00 -Correct Patient Yes -Correct Side, Site, Position Yes -Correct Procedure Yes -Procedure Performed Yes -Type of Procedure Debridement -Clinical Debridement Subcutaneous -Post Debridement Size (cm) - Length 7.0 -Post Debridement Size (cm) - Width 7.0 -Post Debridement Size (cm) - Depth 0.2 -Total Square Cm 49.00 -Wound/Ulcer Outcome Not Healed -Ulcer Cleansing Rinsed/ Irrigated with Saline -Foul Odor after Cleansing No -Bioengineered Tissue No -Bleeding Controlled with Pressure -Offloading No -Treatment Response Procedure Tolerated Well Pain Scale: 0-10 Numeric Is Patient Pain Free? Yes Wound debrided: Lower leg posterior cluster Type of Debridement: Excisional debridement Anesthesia Used: 5% Lidocaine Gel Depth: Down to and including healthy tissue, in the subcutaneous layer Percentage of wound debrided: 100 Instrument Used: 5mm curette Tissue Removed: Slough and fibrin Severity: Fat Layer Exposed Amount of bleeding with debridement: Mild Bleeding Controlled with: Compression and gauze Patient tolerated procedure well Assessment/Plan Active Problems Peripheral arterial occlusive disease (Chronic) Peripheral vascular disease (Chronic) Edema of lower extremity (Chronic) Edema of lower extremity due to peripheral venous insufficiency (Chronic) Cellulitis (Chronic) Cellulitis of lower extremity (Chronic) Non-pressure ulcer of lower extremity with fat layer exposed (Acute) History of multiple strokes (Chronic) Peripheral vascular disease of lower extremity with ulceration (Acute) Assessment: Peripheral vascular disease with ulcers. Smoker. Edema lower extremities. Cellulitis Plan: Wash legs with antibacterial soaps. Apply Gay to wound base cover Adaptic gauze Jocelyn ABDs. Single layer Tubigrip to both legs and Sergio wrap over top. Follow-up in 1 week
[2019-01-18 10:33] VITALS: BP 120/64; PULSE 66; RESP 16; TEMP 37.3
--- NOTE | 2019-01-18 12:40 | PN.PCM_ITS ---
(1) Peripheral vascular disease of lower extremity with ulceration Status: Acute Current Visit: Yes Code(s): I73.9 - Peripheral vascular disease, unspecified; L97.909 - Non-pressure chronic ulcer of unspecified part of unspecified lower leg with unspecified severity (2) History of multiple strokes Status: Chronic Current Visit: Yes Code(s): Z86.73 - Personal history of transient ischemic attack (TIA), and cerebral infarction without residual deficits (3) Non-pressure ulcer of lower extremity with fat layer exposed Status: Acute Current Visit: Yes Code(s): L97.902 - Non-pressure chronic ulcer of unspecified part of unspecified lower leg with fat layer exposed (4) Cellulitis Status: Chronic Current Visit: Yes Code(s): L03.90 - Cellulitis, unspecified (5) Cellulitis of lower extremity Status: Chronic Current Visit: Yes Code(s): L03.119 - Cellulitis of unspecified part of limb (6) Edema of lower extremity Status: Chronic Current Visit: Yes Code(s): R60.0 - Localized edema (7) Edema of lower extremity due to peripheral venous insufficiency Status: Chronic Current Visit: Yes Code(s): I87.2 - Venous insufficiency (chronic) (peripheral) (8) Peripheral arterial occlusive disease Status: Chronic Current Visit: Yes Code(s): I77.9 - Disorder of arteries and arterioles, unspecified (9) Peripheral vascular disease Status: Chronic Current Visit: Yes Code(s): I73.9 - Peripheral vascular disease, unspecified Type of Wound Date of Service: 01/18/19 Chief Complaint: Follow-up on lower leg edema and ulcers History of Wound: 78-year-old white female that was referred to us from her family doctor from [place]. Approximately October 30 woke up one day and had severe edema of her lower extremities that she was unable to walk. Her daughter visits her daily noticed she had open sores on lower extremities and was oozing fluid. Went that she could not walk they took her by ambulance to the [facility]. Patient had an elevated BNP and was kept in the hospital for couple of days and discharged on water pills. Audiogram was normal has some valve problems no A. fib and history of hypertension and high cholesterol had her carotids cleared couple years ago. Today she has ulcers on the anterior and posterior right leg and posterior left leg. Typically irregular and edging well demarcated as you will see it in an arterial problem. We will get cultures of the wounds pre- albumin and we will have an AB study done and venous study of her lower extremities. Progress of Wound: Today the ulcers are only on the left posterior leg still has some depth but is becoming half the size it was last week. We will switch her back to Santyl because she seems to do better on it. She does have some edema on and off of the right leg with seepage of water that develops into skin breakdown and will try Xeroform on those superficial areas. Debridement of a lot of slough this week was much easier. The edema is much improved. She saw Dr. Natarajan last week and he still wants her to continue walking compression finish wound care and follow-up with him in 3 months. He wants her to continue the protein drinks. Right leg is healed - Physical Exam Vital Signs Temp Pulse Resp BP 99.1 F 66 16 120/64 01/18/19 10:33 01/18/19 10:33 01/18/19 10:33 01/18/19 10:33 General: Oriented x3, Cooperative, Well developed HEENT: Atraumatic, PERRLA Oral: Moist Mucosa Neck: Supple, No JVD Lungs: Clear to auscultation, Normal air movement Cardiovascular: Regular rate, Regular Rhythm Abdomen: Bowel Sounds Present, Soft, Non Tender, No Hepato-splenomegaly Extremities: No clubbing, No edema, - - Posterior leg Skin: Ulcer/ Wound Wound Measurements and Assessment WC - Nurse 1 - General Ulcer Measurement Start: 01/11/19 09:27 Freq: Status: Active Protocol: Activity Type Activity Date Activity User E-Sign Co-Sign Detail Recorded Client Recorded Date Recorded By Document 01/18/19 10:33 DV [id number] 01/18/19 10:43 DV 01/18/19 10:33 Wound Center Nurse 1 [Ulcer Assessment] #3 Posterior LLE Cluster -Combined with other wound No -Current Size (cm) - Length 7.5 -Current Size (cm) - Width 7.5 -Current Size (cm) - Depth 0.2 -Total Square Cm 56.25 -Photo Taken No -Epithelialization None Present -Tunneling No -Undermining/Tunneling No -Circular Undermining No -Classification - Thickness Full Thickness without Exposed Support Structure -Exudate Amt Large -Exudate Type Yellow/Green -Wound Margin Indistinct, Non -Visible -Granulation Amt None Present (0 %) -Granulation Quality N/A -Slough/Fibrin Yes -Necrosis Amt Large (67-100%) -Necrotic Tissue Type Adherent Slough -Structure Exposed None/Limited to Skin Breakdown -Texture (Denisse-wound Skin Appearance) Assessed,Rash -Moisture (Denisse-wound Skin Appearance Assessed, ) Maceration, Weeping -Color (Denisse-wound Skin Appearance) Assessed, Erythema -Temperature (Denisse-wound Skin No Abnormality Appearance) (Pt Warm) -Tenderness on Palpation (Denisse-wound Yes Skin Appearance) -Foul Odor after Cleansing No -Anesthetic Used 4% Lidocaine Solution [Edema Assessment] -Lower Limb Edema Present Yes -Right Calf (cm) 42.0 -Right Ankle (cm) 26.0 -Left Calf (cm) 47.0 -Left Ankle (cm) 25.0 WC - Nurse 2 - General Ulcer CM Notes Start: 01/11/19 09:27 Freq: Status: Active Protocol: Activity Type Activity Date Activity User E-Sign Co-Sign Detail Recorded Client Recorded Date Recorded By Document 01/18/19 10:54 MW [id number] 01/18/19 11:00 MW 01/18/19 10:54 Wound Center Nurse 2 [Procedure/Treatment] #3 Posterior LLE Cluster -Time 10:58 -Correct Patient Yes -Correct Side, Site, Position Yes -Correct Procedure Yes -Procedure Performed Yes -Type of Procedure Debridement -Clinical Debridement Subcutaneous -Post Debridement Size (cm) - Length 6.5 -Post Debridement Size (cm) - Width 7.0 -Post Debridement Size (cm) - Depth 0.2 -Total Square Cm 45.50 -Wound/Ulcer Outcome Not Healed -Ulcer Cleansing Rinsed/ Irrigated with Saline -Foul Odor after Cleansing No -Bioengineered Tissue No -Bleeding Controlled with Pressure -Offloading No -Treatment Response Procedure Tolerated Well [See Physician Procedure note for Specifics] Pain Scale: 0-10 Numeric [Pain] -Is Patient Pain Free? Yes Musculoskeletal: No Tenderness to Palpation of Joints or Extremities Lymphatic: No Cervical, Supraclavicular, or Inguinal Adenopathy Neurological: Cranial nerves II-XII grossly intact, Neuro grossly intact Psych/Mental Status: Normal Affect, Appropriate, Alert and oriented to time, place, person, mood and affect Debridement Note Post-Debridement Measurements/Treatment WC - Nurse 2 - General Ulcer CM Notes Start: 01/11/19 09:27 Freq: Status: Active Protocol: Activity Type Activity Date Activity User E-Sign Co-Sign Detail Recorded Client Recorded Date Recorded By Document 01/11/19 09:59 MW [id number] 01/11/19 10:09 MW Document 01/18/19 10:54 MW [id number] 01/18/19 11:00 MW 01/11/19 01/18/19 09:59 10:54 Wound Center Nurse 2 #3 Posterior LLE Cluster -Time 10:00 10:58 -Correct Patient Yes Yes -Correct Side, Site, Position Yes Yes -Correct Procedure Yes Yes -Procedure Performed Yes Yes -Type of Procedure Debridement Debridement -Clinical Debridement Subcutaneous Subcutaneous -Post Debridement Size (cm) - Length 7.0 6.5 -Post Debridement Size (cm) - Width 7.0 7.0 -Post Debridement Size (cm) - Depth 0.2 0.2 -Total Square Cm 49.00 45.50 -Wound/Ulcer Outcome Not Healed Not Healed -Ulcer Cleansing Rinsed/ Rinsed/ Irrigated with Irrigated with Saline Saline -Foul Odor after Cleansing No No -Bioengineered Tissue No No -Bleeding Controlled with Pressure Pressure -Offloading No No -Treatment Response Procedure Procedure Tolerated Well Tolerated Well Pain Scale: 0-10 Numeric Is Patient Pain Free? Yes Yes Wound debrided: Posterior leg Type of Debridement: Excisional debridement Anesthesia Used: 5% Lidocaine Gel Depth: in the subcutaneous layer Percentage of wound debrided: 100 Instrument Used: 7mm curette Tissue Removed: Slough Severity: Fat Layer Exposed Amount of bleeding with debridement: Mild Bleeding Controlled with: Compression and gauze Patient tolerated procedure well Assessment/Plan Active Problems Peripheral arterial occlusive disease (Chronic) Peripheral vascular disease (Chronic) Edema of lower extremity (Chronic) Edema of lower extremity due to peripheral venous insufficiency (Chronic) Cellulitis (Chronic) Cellulitis of lower extremity (Chronic) Non-pressure ulcer of lower extremity with fat layer exposed (Acute) History of multiple strokes (Chronic) Peripheral vascular disease of lower extremity with ulceration (Acute) Assessment: Peripheral vascular disease with ulcers. Smoker. Edema lower extremities. Cellulitis Plan: Wash legs with antibacterial soaps. Apply Santyl to wound base cover Adaptic gauze Jocelyn ABDs. Single layer Tubigrip to both legs and Sergio wrap over top. Follow-up in 1 week. Call with results of the cultures. Patient should get her urine checked with her regular family doctor
--- NOTE | 2019-01-24 09:07 | WC ---
VERA REVIEWED WOUND CX RESULTS. GIVES ORDER FOR ATB. CALLED TO [facility] IN [place] PER PT PREFERENCE. LEFT MSG FOR GULSHAN/PT.
[2019-01-25 10:01] VITALS: BP 149/91; PULSE 99; RESP 16; TEMP 36.5
--- NOTE | 2019-01-25 10:41 | PN.PCM_ITS ---
(1) Peripheral vascular disease of lower extremity with ulceration Status: Acute Current Visit: Yes Code(s): I73.9 - Peripheral vascular disease, unspecified; L97.909 - Non-pressure chronic ulcer of unspecified part of unspecified lower leg with unspecified severity (2) History of multiple strokes Status: Chronic Current Visit: Yes Code(s): Z86.73 - Personal history of transient ischemic attack (TIA), and cerebral infarction without residual deficits (3) Non-pressure ulcer of lower extremity with fat layer exposed Status: Acute Current Visit: Yes Code(s): L97.902 - Non-pressure chronic ulcer of unspecified part of unspecified lower leg with fat layer exposed (4) Cellulitis Status: Chronic Current Visit: Yes Code(s): L03.90 - Cellulitis, unspecified (5) Cellulitis of lower extremity Status: Chronic Current Visit: Yes Code(s): L03.119 - Cellulitis of unspecified part of limb (6) Edema of lower extremity Status: Chronic Current Visit: Yes Code(s): R60.0 - Localized edema (7) Edema of lower extremity due to peripheral venous insufficiency Status: Chronic Current Visit: Yes Code(s): I87.2 - Venous insufficiency (chronic) (peripheral) (8) Peripheral arterial occlusive disease Status: Chronic Current Visit: Yes Code(s): I77.9 - Disorder of arteries and arterioles, unspecified (9) Peripheral vascular disease Status: Chronic Current Visit: Yes Code(s): I73.9 - Peripheral vascular disease, unspecified Type of Wound Date of Service: 01/25/19 Chief Complaint: Follow-up on lower leg edema and ulcers History of Wound: 78-year-old white female that was referred to us from her family doctor from [place]. Approximately October 30 woke up one day and had severe edema of her lower extremities that she was unable to walk. Her daughter visits her daily noticed she had open sores on lower extremities and was oozing fluid. Went that she could not walk they took her by ambulance to the [facility]. Patient had an elevated BNP and was kept in the hospital for couple of days and discharged on water pills. Audiogram was normal has some valve problems no A. fib and history of hypertension and high cholesterol had her carotids cleared couple years ago. Today she has ulcers on the anterior and posterior right leg and posterior left leg. Typically irregular and edging well demarcated as you will see it in an arterial problem. We will get cultures of the wounds pre- albumin and we will have an AB study done and venous study of her lower extremities. Progress of Wound: Today the ulcers are only on the left posterior leg still has some depth but is becoming half the size it was last week. The area is a zigzag shape on the back of her left leg still has some depth but finally is getting down to debridement of good skin using Santyl. We recultured last week she does have staph infection we are starting her on doxycycline this week so that should help. Dr. Natarajan sent his note and he is waiting for her to heal from us and then he will do ablation and fix her legs in about 3 months. She does have some edema on and off of the right leg with seepage of water that develops into skin breakdown and will try Xeroform on those superficial areas. Also suggested with the seepage that she needs to pad better with thicker gauze so there is no drainage coming through to her stockinette. Debridement of a lot of slough this week was much easier. The edema is much improved. She saw Dr. Natarajan last week and he still wants her to continue walking compression finish wound care and follow-up with him in 3 months. He wants her to continue the protein drinks. Right leg is healed - Physical Exam Vital Signs Temp Pulse Resp BP 97.7 F L 99 16 149/91 H 01/25/19 10:01 01/25/19 10:01 01/25/19 10:01 01/25/19 10:01 General: Oriented x3, Cooperative, Well developed HEENT: Atraumatic, PERRLA Oral: Moist Mucosa Neck: Supple, No JVD Lungs: Clear to auscultation, Normal air movement Cardiovascular: Regular rate, Regular Rhythm Abdomen: Bowel Sounds Present, Soft, Non Tender, No Hepato-splenomegaly Extremities: No clubbing, No edema, - - Left lower leg peripheral vascular ulcers Wound Measurements and Assessment WC - Nurse 1 - General Ulcer Measurement Start: 01/11/19 09:27 Freq: Status: Active Protocol: Activity Type Activity Date Activity User E-Sign Co-Sign Detail Recorded Client Recorded Date Recorded By Document 01/25/19 10:01 [facility] [id number] 01/25/19 10:14 BMF 01/25/19 10:01 Wound Center Nurse 1 [Ulcer Assessment] #3 Posterior LLE Cluster -Combined with other wound No -Current Size (cm) - Length 6.4 -Current Size (cm) - Width 6.3 -Current Size (cm) - Depth 0.2 -Total Square Cm 40.32 -Photo Taken No -Epithelialization Large 67-100% -Undermining/Tunneling No -Circular Undermining No -Classification - Thickness Partial Thickness -Classification - Torre Grading ( Grade 1 Diabetic Ulcer) -Change in Wound Grade/Stage No Query Text:If change please identify the Stage/Grade in the comment (ie. S2 G3) -Exudate Amt Large -Exudate Type Serous -Wound Margin Distinct, Outline Attached -Granulation Amt None Present (0 %) -Granulation Quality N/A -Slough/Fibrin Yes -Necrosis Amt Small (1-33%) -Necrotic Tissue Type Adherent Slough -Structure Exposed None/Limited to Skin Breakdown -Texture (Denisse-wound Skin Appearance) Localized Edema -Moisture (Denisse-wound Skin Appearance Assessed, ) Weeping -Color (Denisse-wound Skin Appearance) Assessed, Erythema -Temperature (Denisse-wound Skin No Abnormality Appearance) (Pt Warm) -Tenderness on Palpation (Denisse-wound Yes Skin Appearance) -Foul Odor after Cleansing No -Anesthetic Used 4% Lidocaine Solution [Edema Assessment] -Lower Limb Edema Present Yes -Right Calf (cm) 42.1 -Right Ankle (cm) 23.8 -Left Calf (cm) 42.5 -Left Ankle (cm) 24.4 WC - Nurse 2 - General Ulcer CM Notes Start: 01/11/19 09:27 Freq: Status: Active Protocol: Activity Type Activity Date Activity User E-Sign Co-Sign Detail Recorded Client Recorded Date Recorded By Document 01/25/19 10:33 ARISTEO [id number] 01/25/19 10:34 ARISTEO 01/25/19 10:33 Wound Center Nurse 2 [Procedure/Treatment] #3 Posterior LLE Cluster -Time 10:33 -Correct Patient Yes -Correct Side, Site, Position Yes -Correct Procedure Yes -Procedure Performed Yes -Type of Procedure Debridement -Clinical Debridement Subcutaneous -Post Debridement Size (cm) - Length 6 -Post Debridement Size (cm) - Width 6 -Post Debridement Size (cm) - Depth 0.2 -Total Square Cm 36 -Wound/Ulcer Outcome Not Healed -Ulcer Cleansing Rinsed/ Irrigated with Saline -Foul Odor after Cleansing No -Bioengineered Tissue No -Bleeding Controlled with Pressure -Offloading No -Treatment Response Procedure Tolerated Well [See Physician Procedure note for Specifics] Pain Scale: 0-10 Numeric [Pain] -Is Patient Pain Free? Yes Musculoskeletal: No Tenderness to Palpation of Joints or Extremities Lymphatic: No Cervical, Supraclavicular, or Inguinal Adenopathy Neurological: Cranial nerves II-XII grossly intact, Neuro grossly intact Psych/Mental Status: Normal Affect, Appropriate, Alert and oriented to time, place, person, mood and affect Debridement Note Post-Debridement Measurements/Treatment WC - Nurse 2 - General Ulcer CM Notes Start: 01/11/19 09:27 Freq: Status: Active Protocol: Activity Type Activity Date Activity User E-Sign Co-Sign Detail Recorded Client Recorded Date Recorded By Document 01/11/19 09:59 MW [id number] 01/11/19 10:09 MW Document 01/18/19 10:54 MW [id number] 01/18/19 11:00 MW Document 01/25/19 10:33 JF [id number] 01/25/19 10:34 JF 01/11/19 01/18/19 01/25/19 09:59 10:54 10:33 Wound Center Nurse 2 #3 Posterior LLE Cluster -Time 10:00 10:58 10:33 -Correct Patient Yes Yes Yes -Correct Side, Site, Position Yes Yes Yes -Correct Procedure Yes Yes Yes -Procedure Performed Yes Yes Yes -Type of Procedure Debridement Debridement Debridement -Clinical Debridement Subcutaneous Subcutaneous Subcutaneous -Post Debridement Size (cm) - Length 7.0 6.5 6 -Post Debridement Size (cm) - Width 7.0 7.0 6 -Post Debridement Size (cm) - Depth 0.2 0.2 0.2 -Total Square Cm 49.00 45.50 36 -Wound/Ulcer Outcome Not Healed Not Healed Not Healed -Ulcer Cleansing Rinsed/ Rinsed/ Rinsed/ Irrigated with Irrigated with Irrigated with Saline Saline Saline -Foul Odor after Cleansing No No No -Bioengineered Tissue No No No -Bleeding Controlled with Pressure Pressure Pressure -Offloading No No No -Treatment Response Procedure Procedure Procedure Tolerated Well Tolerated Well Tolerated Well Pain Scale: 0-10 Numeric Is Patient Pain Free? Yes Yes Yes Wound debrided: Left lower leg peripheral vascular ulcer cluster Type of Debridement: Excisional debridement Anesthesia Used: 5% Lidocaine Gel Depth: Down to and including healthy tissue, in the subcutaneous layer Percentage of wound debrided: 100 Instrument Used: 7mm curette Tissue Removed: Slough and fibrin Severity: Limited To Skin Breakdown Amount of bleeding with debridement: Mild Bleeding Controlled with: Compression and gauze Patient tolerated procedure well Assessment/Plan Active Problems Peripheral arterial occlusive disease (Chronic) Peripheral vascular disease (Chronic) Edema of lower extremity (Chronic) Edema of lower extremity due to peripheral venous insufficiency (Chronic) Cellulitis (Chronic) Cellulitis of lower extremity (Chronic) Non-pressure ulcer of lower extremity with fat layer exposed (Acute) History of multiple strokes (Chronic) Peripheral vascular disease of lower extremity with ulceration (Acute) Assessment: Peripheral vascular disease with ulcers. Smoker. Edema lower extremities. Cellulitis Plan: Wash legs with antibacterial soaps. Apply Santyl to wound base cover Adaptic gauze Jocelyn ABDs. Single layer Tubigrip to both legs and Sergio wrap over top. Follow-up in 1 week. Continue doxycycline 100 mg p.o. twice daily for 10 days. Patient should get her urine checked with her regular family doctor
[2019-02-01 09:50] VITALS: BP 133/67; PULSE 72; RESP 16; TEMP 36.5
--- NOTE | 2019-02-01 10:53 | PCM.WC.PN ---
(1) Peripheral vascular disease of lower extremity with ulceration Status: Acute Current Visit: Yes Code(s): I73.9 - Peripheral vascular disease, unspecified; L97.909 - Non-pressure chronic ulcer of unspecified part of unspecified lower leg with unspecified severity (2) History of multiple strokes Status: Chronic Current Visit: Yes Code(s): Z86.73 - Personal history of transient ischemic attack (TIA), and cerebral infarction without residual deficits (3) Non-pressure ulcer of lower extremity with fat layer exposed Status: Acute Current Visit: Yes Code(s): L97.902 - Non-pressure chronic ulcer of unspecified part of unspecified lower leg with fat layer exposed (4) Cellulitis Status: Chronic Current Visit: Yes Code(s): L03.90 - Cellulitis, unspecified (5) Cellulitis of lower extremity Status: Chronic Current Visit: Yes Code(s): L03.119 - Cellulitis of unspecified part of limb (6) Edema of lower extremity Status: Chronic Current Visit: Yes Code(s): R60.0 - Localized edema (7) Edema of lower extremity due to peripheral venous insufficiency Status: Chronic Current Visit: Yes Code(s): I87.2 - Venous insufficiency (chronic) (peripheral) (8) Peripheral arterial occlusive disease Status: Chronic Current Visit: Yes Code(s): I77.9 - Disorder of arteries and arterioles, unspecified (9) Peripheral vascular disease Status: Chronic Current Visit: Yes Code(s): I73.9 - Peripheral vascular disease, unspecified Type of Wound Date of Service: 02/01/19 Chief Complaint: Follow-up on lower leg edema and ulcers History of Wound: 78-year-old white female that was referred to us from her family doctor from [place]. Approximately October 30 woke up one day and had severe edema of her lower extremities that she was unable to walk. Her daughter visits her daily noticed she had open sores on lower extremities and was oozing fluid. Went that she could not walk they took her by ambulance to the [facility]. Patient had an elevated BNP and was kept in the hospital for couple of days and discharged on water pills. Audiogram was normal has some valve problems no A. fib and history of hypertension and high cholesterol had her carotids cleared couple years ago. Today she has ulcers on the anterior and posterior right leg and posterior left leg. Typically irregular and edging well demarcated as you will see it in an arterial problem. We will get cultures of the wounds pre-albumin and we will have an AB study done and venous study of her lower extremities. Progress of Wound: Today the ulcers are only on the left posterior leg still has some depth but is becoming half the size it was last week. The area is a zigzag shape on the back of her left leg still has some depth but finally is getting down to debridement of good skin using Santyl. We recultured last week she does have staph infection we are starting her on doxycycline that she has finished. And now has developed thrush from all the antibiotic therapy will start her on fluconazole 100 mg p.o. daily for 14 days with 1 refill if needed this week so that should help. Dr. Natarajan sent his note and he is waiting for her to heal from us and then he will do ablation and fix her legs in about 3 months. She does have some edema on and off of the right leg with seepage of water that develops into skin breakdown and will try Xeroform on those superficial areas. Also suggested with the seepage that she needs to pad better with thicker gauze so there is no drainage coming through to her stockinette. Debridement of a lot of slough this week was much easier. The edema is much improved. She saw Dr. Natarajan last week and he still wants her to continue walking compression finish wound care and follow-up with him in 3 months. He wants her to continue the protein drinks. Right leg is healed - Physical Exam Vital Signs Temp Pulse Resp BP 97.7 F L 72 16 133/67 H 02/01/19 09:50 02/01/19 09:50 02/01/19 09:50 02/01/19 09:50 General: Oriented x3, Cooperative, Well developed HEENT: Atraumatic, PERRLA Oral: Moist Mucosa Neck: Supple, No JVD Lungs: Clear to auscultation, Normal air movement Cardiovascular: Regular rate, Regular Rhythm Abdomen: Bowel Sounds Present, Soft, Non Tender, No Hepato-splenomegaly Extremities: No clubbing, No edema, - - Posterior wounds Wound Measurements and Assessment WC - Nurse 1 - General Ulcer Measurement Start: 01/11/19 09:27 Freq: Status: Active Protocol: Activity Type Activity Date Activity User E-Sign Co-Sign Detail Recorded Client Recorded Date Recorded By Document 02/01/19 09:50 [facility] [id number] 02/01/19 10:03 [facility] 02/01/19 09:50 Wound Center Nurse 1 [Ulcer Assessment] #3 Posterior LLE Cluster -Combined with other wound No -Current Size (cm) - Length 5.1 -Current Size (cm) - Width 5.2 -Current Size (cm) - Depth 0.2 -Total Square Cm 26.52 -Photo Taken No -Epithelialization Small 1-33% -Tunneling No -Undermining/Tunneling No -Circular Undermining No -Exudate Amt Medium -Exudate Type Serosanguineous -Wound Margin Flat & Intact -Granulation Amt Medium (34-66%) -Granulation Quality Red -Slough/Fibrin Yes -Necrosis Amt Medium (34-66%) -Necrotic Tissue Type Adherent Slough -Texture (Denisse-wound Skin Appearance) Assessed, Scarring -Moisture (Denisse-wound Skin Appearance Assessed,Dry/ ) Scaly -Color (Denisse-wound Skin Appearance) Assessed -Temperature (Denisse-wound Skin No Abnormality Appearance) (Pt Warm) -Tenderness on Palpation (Denisse-wound No Skin Appearance) -Ulcer Cleansing Rinsed/ Irrigated with Saline -Foul Odor after Cleansing No -Anesthetic Used 4% Lidocaine Solution [Edema Assessment] -Lower Limb Edema Present Yes -Right Calf (cm) 49.5 -Right Ankle (cm) 23.5 -Left Calf (cm) 42.5 -Left Ankle (cm) 24.3 WC - Nurse 2 - General Ulcer CM Notes Start: 01/11/19 09:27 Freq: Status: Active Protocol: Activity Type Activity Date Activity User E-Sign Co-Sign Detail Recorded Client Recorded Date Recorded By Document 02/01/19 10:27 MW [id number] 02/01/19 10:34 MW 02/01/19 10:27 Wound Center Nurse 2 [Procedure/Treatment] #3 Posterior LLE Cluster -Time 10:27 -Correct Patient Yes -Correct Side, Site, Position Yes -Correct Procedure Yes -Procedure Performed Yes -Type of Procedure Debridement -Clinical Debridement Subcutaneous -Post Debridement Size (cm) - Length 4.0 -Post Debridement Size (cm) - Width 5.5 -Post Debridement Size (cm) - Depth 0.2 -Total Square Cm 22.00 -Wound/Ulcer Outcome Not Healed -Ulcer Cleansing Rinsed/ Irrigated with Saline -Foul Odor after Cleansing No -Bioengineered Tissue No -Bleeding Controlled with Pressure -Offloading No [See Physician Procedure note for Specifics] Pain Scale: 0-10 Numeric [Pain] -Is Patient Pain Free? Yes Musculoskeletal: No Tenderness to Palpation of Joints or Extremities Lymphatic: No Cervical, Supraclavicular, or Inguinal Adenopathy Neurological: Cranial nerves II-XII grossly intact, Neuro grossly intact Psych/Mental Status: Normal Affect, Appropriate Debridement Note Post-Debridement Measurements/Treatment WC - Nurse 2 - General Ulcer CM Notes Start: 01/11/19 09:27 Freq: Status: Active Protocol: Activity Type Activity Date Activity User E-Sign Co-Sign Detail Recorded Client Recorded Date Recorded By Document 01/11/19 09:59 MW [id number] 01/11/19 10:09 MW Document 01/18/19 10:54 MW [id number] 01/18/19 11:00 MW Document 01/25/19 10:33 JF [id number] 01/25/19 10:34 JF Document 02/01/19 10:27 MW [id number] 02/01/19 10:34 MW 01/11/19 01/18/19 01/25/19 09:59 10:54 10:33 Wound Center Nurse 2 #3 Posterior LLE Cluster -Time 10:00 10:58 10:33 -Correct Patient Yes Yes Yes -Correct Side, Site, Position Yes Yes Yes -Correct Procedure Yes Yes Yes -Procedure Performed Yes Yes Yes -Type of Procedure Debridement Debridement Debridement -Clinical Debridement Subcutaneous Subcutaneous Subcutaneous -Post Debridement Size (cm) - Length 7.0 6.5 6 -Post Debridement Size (cm) - Width 7.0 7.0 6 -Post Debridement Size (cm) - Depth 0.2 0.2 0.2 -Total Square Cm 49.00 45.50 36 -Wound/Ulcer Outcome Not Healed Not Healed Not Healed -Ulcer Cleansing Rinsed/ Rinsed/ Rinsed/ Irrigated with Irrigated with Irrigated with Saline Saline Saline -Foul Odor after Cleansing No No No -Bioengineered Tissue No No No -Bleeding Controlled with Pressure Pressure Pressure -Offloading No No No -Treatment Response Procedure Procedure Procedure Tolerated Well Tolerated Well Tolerated Well Pain Scale: 0-10 Numeric Is Patient Pain Free? Yes Yes Yes 02/01/19 10:27 Wound Center Nurse 2 #3 Posterior LLE Cluster -Time 10:27 -Correct Patient Yes -Correct Side, Site, Position Yes -Correct Procedure Yes -Procedure Performed Yes -Type of Procedure Debridement -Clinical Debridement Subcutaneous -Post Debridement Size (cm) - Length 4.0 -Post Debridement Size (cm) - Width 5.5 -Post Debridement Size (cm) - Depth 0.2 -Total Square Cm 22.00 -Wound/Ulcer Outcome Not Healed -Ulcer Cleansing Rinsed/ Irrigated with Saline -Foul Odor after Cleansing No -Bioengineered Tissue No -Bleeding Controlled with Pressure -Offloading No -Treatment Response Pain Scale: 0-10 Numeric Is Patient Pain Free? Yes Wound debrided: Left posterior wounds Type of Debridement: Excisional debridement Anesthesia Used: 5% Lidocaine Gel Depth: Down to and including healthy tissue, in the subcutaneous layer Percentage of wound debrided: 100 Instrument Used: 7mm curette Severity: Limited To Skin Breakdown Amount of bleeding with debridement: Mild Bleeding Controlled with: Compression and gauze Patient tolerated procedure well Assessment/Plan Active Problems Peripheral arterial occlusive disease (Chronic) Peripheral vascular disease (Chronic) Edema of lower extremity (Chronic) Edema of lower extremity due to peripheral venous insufficiency (Chronic) Cellulitis (Chronic) Cellulitis of lower extremity (Chronic) Non-pressure ulcer of lower extremity with fat layer exposed (Acute) History of multiple strokes (Chronic) Peripheral vascular disease of lower extremity with ulceration (Acute) Assessment: Peripheral vascular disease with ulcers. Smoker. Edema lower extremities. Cellulitis Plan: Wash legs with antibacterial soaps. Apply Santyl to wound base cover Adaptic gauze Jocelyn ABDs. Single layer Tubigrip to both legs and Sergio wrap over top. Follow-up in 1 week. Start the fluconazole 100 mg 1 p.o. daily for 14 days with 1 refill as needed. Patient should get her urine checked with her regular family doctor
[2019-02-08 10:09] VITALS: BP 141/73; PULSE 65; RESP 18; TEMP 36.5
--- NOTE | 2019-02-08 11:32 | PN.PCM_ITS ---
(1) Peripheral vascular disease of lower extremity with ulceration Status: Acute Current Visit: Yes Code(s): I73.9 - Peripheral vascular disease, unspecified; L97.909 - Non-pressure chronic ulcer of unspecified part of unspecified lower leg with unspecified severity (2) History of multiple strokes Status: Chronic Current Visit: Yes Code(s): Z86.73 - Personal history of transient ischemic attack (TIA), and cerebral infarction without residual deficits (3) Non-pressure ulcer of lower extremity with fat layer exposed Status: Acute Current Visit: Yes Code(s): L97.902 - Non-pressure chronic ulcer of unspecified part of unspecified lower leg with fat layer exposed (4) Cellulitis Status: Chronic Current Visit: Yes Code(s): L03.90 - Cellulitis, unspecified (5) Cellulitis of lower extremity Status: Chronic Current Visit: Yes Code(s): L03.119 - Cellulitis of unspecified part of limb (6) Edema of lower extremity Status: Chronic Current Visit: Yes Code(s): R60.0 - Localized edema (7) Edema of lower extremity due to peripheral venous insufficiency Status: Chronic Current Visit: Yes Code(s): I87.2 - Venous insufficiency (chronic) (peripheral) (8) Peripheral arterial occlusive disease Status: Chronic Current Visit: Yes Code(s): I77.9 - Disorder of arteries and arterioles, unspecified (9) Peripheral vascular disease Status: Chronic Current Visit: Yes Code(s): I73.9 - Peripheral vascular disease, unspecified Type of Wound Date of Service: 02/08/19 Chief Complaint: Follow-up on lower leg edema and ulcers History of Wound: 78-year-old white female that was referred to us from her family doctor from [place]. Approximately October 30 woke up one day and had severe edema of her lower extremities that she was unable to walk. Her daughter visits her daily noticed she had open sores on lower extremities and was oozing fluid. Went that she could not walk they took her by ambulance to the [facility]. Patient had an elevated BNP and was kept in the hospital for couple of days and discharged on water pills. Audiogram was normal has some valve problems no A. fib and history of hypertension and high cholesterol had her carotids cleared couple years ago. Today she has ulcers on the anterior and posterior right leg and posterior left leg. Typically irregular and edging well demarcated as you will see it in an arterial problem. We will get cultures of the wounds pre- albumin and we will have an AB study done and venous study of her lower extremities. Progress of Wound: Today the ulcers are only on the left posterior leg still has some depth but is becoming half the size it was last week. The area is a zigzag shape on the back of her left leg still has some depth but finally is getting down to debridement of good skin using Santyl. Dr. Natarajan sent his note and he is waiting for her to heal from us and then he will do ablation and fix her legs in about 3 months. She does have some edema on and off of the right leg with seepage of water that develops into skin breakdown and will try Xeroform on those superficial areas. Also suggested with the seepage that she needs to pad better with thicker gauze so there is no drainage coming through to her stockinette. Debridement of a lot of slough this week was much easier. The edema is much improved. She saw Dr. Natarajan last week and he still wants her to continue walking compression finish wound care and follow-up with him in 3 months. He wants her to continue the protein drinks. Right leg is healed. She keeps getting additional blisters on her left lower leg and I told the daughter at [facility] because of the peripheral vascular disease and that she needs to be healed with Dr. Natarajan to get rid of those and once those are open she will blister less she is to continue using the Xeroform dressings on those and and we are going to give her a mesh sleeve to put on her leg rather than the Jocelyn that appears to be holding and heating causing a red rash on her lower extremities were very well demarcated like a glove. - Physical Exam Vital Signs Temp Pulse Resp BP 97.7 F L 65 18 141/73 H 02/08/19 10:02/08/19 10:02/08/19 10:02/08/19 10:09 General: Oriented x3, Cooperative, Well developed HEENT: Atraumatic, PERRLA Oral: Moist Mucosa Neck: Supple, No JVD Lungs: Clear to auscultation, Normal air movement Cardiovascular: Regular rate, Regular Rhythm Abdomen: Bowel Sounds Present, Soft, Non Tender, No Hepato-splenomegaly Extremities: No clubbing, No edema, - - Back of left leg has open ulcers Skin: Rash Present Wound Measurements and Assessment WC - Nurse 1 - General Ulcer Measurement Start: 01/11/19 09:27 Freq: Status: Active Protocol: Activity Type Activity Date Activity User E-Sign Co-Sign Detail Recorded Client Recorded Date Recorded By Document 02/08/19 10:09 RB [id number] 02/08/19 10:16 RB 02/08/19 10:09 Wound Center Nurse 1 [Ulcer Assessment] #3 Posterior LLE Cluster -Combined with other wound No -Current Size (cm) - Length 3 -Current Size (cm) - Width 5.5 -Current Size (cm) - Depth 0.1 -Total Square Cm 16.5 -Tunneling No -Undermining/Tunneling No -Circular Undermining No -Exudate Amt Medium -Exudate Type Serosanguineous -Wound Margin Flat & Intact -Granulation Amt Large (67-100%) -Granulation Quality [place] -Slough/Fibrin Yes -Necrosis Amt Small (1-33%) -Necrotic Tissue Type Adherent Slough -Structure Exposed N/A -Texture (Denisse-wound Skin Appearance) Assessed -Moisture (Denisse-wound Skin Appearance Assessed ) -Color (Denisse-wound Skin Appearance) Assessed -Temperature (Denisse-wound Skin No Abnormality Appearance) (Pt Warm) -Tenderness on Palpation (Denisse-wound No Skin Appearance) -Ulcer Cleansing Wound Cleanser -Foul Odor after Cleansing No -Anesthetic Used 4% Lidocaine Solution [Edema Assessment] -Lower Limb Edema Present Yes -Right Calf (cm) 38 -Right Ankle (cm) 24 -Left Calf (cm) 38 -Left Ankle (cm) 21.5 WC - Nurse 2 - General Ulcer CM Notes Start: 01/11/19 09:27 Freq: Status: Active Protocol: Activity Type Activity Date Activity User E-Sign Co-Sign Detail Recorded Client Recorded Date Recorded By Document 02/08/19 10:24 MW [id number] 02/08/19 10:32 MW 02/08/19 10:24 Wound Center Nurse 2 [Procedure/Treatment] #3 Posterior LLE Cluster -Time 10:25 -Correct Patient Yes -Correct Side, Site, Position Yes -Correct Procedure Yes -Procedure Performed Yes -Type of Procedure Debridement -Clinical Debridement Subcutaneous -Post Debridement Size (cm) - Length 4.2 -Post Debridement Size (cm) - Width 5.5 -Post Debridement Size (cm) - Depth 0.1 -Total Square Cm 23.10 -Wound/Ulcer Outcome Not Healed -Ulcer Cleansing Rinsed/ Irrigated with Saline -Foul Odor after Cleansing No -Bioengineered Tissue No -Bleeding Controlled with Pressure -Offloading No -Treatment Response Procedure Tolerated Well [See Physician Procedure note for Specifics] Pain Scale: 0-10 Numeric [Pain] -Is Patient Pain Free? Yes Musculoskeletal: No Tenderness to Palpation of Joints or Extremities Lymphatic: No Cervical, Supraclavicular, or Inguinal Adenopathy Neurological: Cranial nerves II-XII grossly intact, Neuro grossly intact Psych/Mental Status: Normal Affect, Appropriate, Alert and oriented to time, place, person, mood and affect Debridement Note Post-Debridement Measurements/Treatment WC - Nurse 2 - General Ulcer CM Notes Start: 01/11/19 09:27 Freq: Status: Active Protocol: Activity Type Activity Date Activity User E-Sign Co-Sign Detail Recorded Client Recorded Date Recorded By Document 01/11/19 09:59 MW [id number] 01/11/19 10:09 MW Document 01/18/19 10:54 MW [id number] 01/18/19 11:00 MW Document 01/25/19 10:33 JF [id number] 01/25/19 10:34 JF Document 02/01/19 10:27 MW [id number] 02/01/19 10:34 MW Document 02/08/19 10:24 MW [id number] 02/08/19 10:32 MW 01/11/19 01/18/19 01/25/19 09:59 10:54 10:33 Wound Center Nurse 2 #3 Posterior LLE Cluster -Time 10:00 10:58 10:33 -Correct Patient Yes Yes Yes -Correct Side, Site, Position Yes Yes Yes -Correct Procedure Yes Yes Yes -Procedure Performed Yes Yes Yes -Type of Procedure Debridement Debridement Debridement -Clinical Debridement Subcutaneous Subcutaneous Subcutaneous -Post Debridement Size (cm) - Length 7.0 6.5 6 -Post Debridement Size (cm) - Width 7.0 7.0 6 -Post Debridement Size (cm) - Depth 0.2 0.2 0.2 -Total Square Cm 49.00 45.50 36 -Wound/Ulcer Outcome Not Healed Not Healed Not Healed -Ulcer Cleansing Rinsed/ Rinsed/ Rinsed/ Irrigated with Irrigated with Irrigated with Saline Saline Saline -Foul Odor after Cleansing No No No -Bioengineered Tissue No No No -Bleeding Controlled with Pressure Pressure Pressure -Offloading No No No -Treatment Response Procedure Procedure Procedure Tolerated Well Tolerated Well Tolerated Well Pain Scale: 0-10 Numeric Is Patient Pain Free? Yes Yes Yes 02/01/19 02/08/19 10:27 10:24 Wound Center Nurse 2 #3 Posterior LLE Cluster -Time 10:27 10:25 -Correct Patient Yes Yes -Correct Side, Site, Position Yes Yes -Correct Procedure Yes Yes -Procedure Performed Yes Yes -Type of Procedure Debridement Debridement -Clinical Debridement Subcutaneous Subcutaneous -Post Debridement Size (cm) - Length 4.0 4.2 -Post Debridement Size (cm) - Width 5.5 5.5 -Post Debridement Size (cm) - Depth 0.2 0.1 -Total Square Cm 22.00 23.10 -Wound/Ulcer Outcome Not Healed Not Healed -Ulcer Cleansing Rinsed/ Rinsed/ Irrigated with Irrigated with Saline Saline -Foul Odor after Cleansing No No -Bioengineered Tissue No No -Bleeding Controlled with Pressure Pressure -Offloading No No -Treatment Response Procedure Tolerated Well Pain Scale: 0-10 Numeric Is Patient Pain Free? Yes Yes Wound debrided: Left posterior leg Type of Debridement: Excisional debridement Anesthesia Used: 5% Lidocaine Gel Depth: Down to and including healthy tissue, in the subcutaneous layer Percentage of wound debrided: 100 Instrument Used: 7mm curette Tissue Removed: Fibrin and slough Severity: Limited To Skin Breakdown Amount of bleeding with debridement: Mild Bleeding Controlled with: Compression and gauze Patient tolerated procedure well Assessment/Plan Pre-albumin lab test to check for her malnutrition improvement Active Problems Peripheral arterial occlusive disease (Chronic) Peripheral vascular disease (Chronic) Edema of lower extremity (Chronic) Edema of lower extremity due to peripheral venous insufficiency (Chronic) Cellulitis (Chronic) Cellulitis of lower extremity (Chronic) Non-pressure ulcer of lower extremity with fat layer exposed (Acute) History of multiple strokes (Chronic) Peripheral vascular disease of lower extremity with ulceration (Acute) Assessment: Peripheral vascular disease with ulcers. Smoker. Edema lower extremities. Cellulitis Plan: Wash legs with antibacterial soaps. Apply Santyl to wound base cover Adaptic gauze mesh sleeve ABDs. Single layer Tubigrip to both legs and Sergio wrap over top. Follow-up in 1 week. Finish the fluconazole 100 mg 1 p.o. daily for 14 days with 1 refill as needed. Patient should get her urine checked with her regular family doctor
[2019-02-08 12:06] LABS: Prealbumin 15.5 mg/dL (20.0-40.0)
== END 2019-02-09 23:59 ==
LOC: WC 10:00
PROVIDERS: Family Provider Family Medicine; PCP Family Medicine; Referring Provider Nurse Practitioner; Visit Provider Nurse Practitioner
DX: I73.9 Peripheral vascular disease, unspecified (principal); Z86.73 Personal history of transient ischemic attack (TIA), and cerebral infarction without residual deficits; R60.0 Localized edema; I87.2 Venous insufficiency (chronic) (peripheral); L97.822 Non-pressure chronic ulcer of other part of left lower leg with fat layer exposed; F17.200 Nicotine dependence, unspecified, uncomplicated; L97.821 Non-pressure chronic ulcer of other part of left lower leg limited to breakdown of skin; L03.119 Cellulitis of unspecified part of limb
CPT/HCPCS: 11042; 11045; 84134; 87070; 87075; 87077; 87186; 87205

== ENCOUNTER 2019-03-01 10:15 | Outpatient (RCR) | payer MEDICARE, OTHER, SELFPAY ==
[2019-02-10 00:49] VITALS: BP 141/73; PULSE 65; RESP 18; TEMP 36.5
--- NOTE | 2019-02-15 13:23 | PCM.WC.PN ---
(1) Non-pressure ulcer of lower extremity with fat layer exposed Status: Acute Current Visit: Yes Code(s): L97.902 - Non-pressure chronic ulcer of unspecified part of unspecified lower leg with fat layer exposed (2) Peripheral vascular disease of lower extremity with ulceration Status: Acute Current Visit: Yes Code(s): I73.9 - Peripheral vascular disease, unspecified; L97.909 - Non-pressure chronic ulcer of unspecified part of unspecified lower leg with unspecified severity (3) Edema of lower extremity Status: Chronic Current Visit: Yes Code(s): R60.0 - Localized edema (4) Peripheral arterial occlusive disease Status: Chronic Current Visit: Yes Code(s): I77.9 - Disorder of arteries and arterioles, unspecified Type of Wound Date of Service: 02/15/19 Chief Complaint: Follow-up on lower leg edema and ulcers History of Wound: 78-year-old white female that was referred to us from her family doctor from [place]. Approximately October 30 woke up one day and had severe edema of her lower extremities that she was unable to walk. Her daughter visits her daily noticed she had open sores on lower extremities and was oozing fluid. Went that she could not walk they took her by ambulance to the [facility]. Patient had an elevated BNP and was kept in the hospital for couple of days and discharged on water pills. Audiogram was normal has some valve problems no A. fib and history of hypertension and high cholesterol had her carotids cleared couple years ago. Today she has ulcers on the anterior and posterior right leg and posterior left leg. Typically irregular and edging well demarcated as you will see it in an arterial problem. We will get cultures of the wounds pre-albumin and we will have an AB study done and venous study of her lower extremities. Progress of Wound: Today the ulcers are only on the left posterior leg still has some depth but is becoming half the size it was last week. The area is a zigzag shape on the back of her left leg still has some depth but finally is getting down to debridement of good skin using Santyl. Dr. Natarajan sent his note and he is waiting for her to heal from us and then he will do ablation and fix her legs in about 3 months. She does have some edema on and off of the right leg with seepage of water that develops into skin breakdown and will try Xeroform on those superficial areas. Also suggested with the seepage that she needs to pad better with thicker gauze so there is no drainage coming through to her stockinette. Debridement of a lot of slough this week was much easier. The edema is much improved. She saw Dr. Natarajan last week and he still wants her to continue walking compression finish wound care and follow-up with him in 3 months. He wants her to continue the protein drinks. Right leg is healed. She also has a small area on the left reyes that was blistered that open that were using Xeroform dressing on that healing well. Pre-albumin still came back even lower than the previous one and she has had a really bad case of oral thrush and is not eating properly so we feel like that is what is causing the malnutrition worsening. Daughter suggests that she is confused at times wonders to meds but I still suggest that she get her urine checked she might have a urinary tract infection from not eating and drinking. - Physical Exam Vital Signs Temp Pulse Resp BP 97.7 F L 65 18 141/73 H 02/10/19 00:49 02/10/19 00:49 02/10/19 00:49 02/10/19 00:49 General: Oriented x3, Cooperative, Well developed HEENT: Atraumatic, PERRLA Oral: Moist Mucosa Neck: Supple, No JVD Lungs: Clear to auscultation, Normal air movement Cardiovascular: Regular rate, Regular Rhythm Abdomen: Bowel Sounds Present, Soft, Non Tender, No Hepato-splenomegaly Extremities: No clubbing, Edema Skin: Ulcer/ Wound - Left anterior reyes and left posterior calf Wound Measurements and Assessment WC - Nurse 1 - General Ulcer Measurement Start: 02/15/19 11:27 Freq: Status: Active Protocol: Activity Type Activity Date Activity User E-Sign Co-Sign Detail Recorded Client Recorded Date Recorded By Document 02/15/19 11:35 [id number] 02/15/19 12:02 02/15/19 11:35 Wound Center Nurse 1 [Ulcer Assessment] #3 Posterior LLE Cluster -Combined with other wound No -Current Size (cm) - Length 1 -Current Size (cm) - Width 4.5 -Current Size (cm) - Depth 0.1 -Total Square Cm 4.5 -Photo Taken No -Epithelialization Small 1-33% -Tunneling No -Undermining/Tunneling No -Circular Undermining No -Classification - Thickness Partial Thickness -Change in Wound Grade/Stage No Query Text:If change please identify the Stage/Grade in the comment (ie. S2 G3) -Exudate Amt None Present -Wound Margin Distinct, Outline Attached -Granulation Amt Small (1-33%) -Granulation Quality Pale -Slough/Fibrin Yes -Necrosis Amt None Present (0 %) -Necrotic Tissue Type Adherent Slough -Structure Exposed None/Limited to Skin Breakdown -Texture (Denisse-wound Skin Appearance) Assessed, Localized Edema -Moisture (Denisse-wound Skin Appearance No Abnormality, ) Assessed -Color (Denisse-wound Skin Appearance) Assessed,Palor -Temperature (Denisse-wound Skin No Abnormality Appearance) (Pt Warm) -Tenderness on Palpation (Denisse-wound No Skin Appearance) -Foul Odor after Cleansing No -Anesthetic Used 5% Lidocaine Gel [Edema Assessment] -Lower Limb Edema Present Yes -Right Calf (cm) 32.2 -Right Ankle (cm) 24 -Left Calf (cm) 38 -Left Ankle (cm) 26 WC - Nurse 2 - General Ulcer CM Notes Start: 02/15/19 11:27 Freq: Status: Active Protocol: Activity Type Activity Date Activity User E-Sign Co-Sign Detail Recorded Client Recorded Date Recorded By Document 02/15/19 11:57 MW [id number] 02/15/19 12:02 MW 02/15/19 11:57 Wound Center Nurse 2 [Procedure/Treatment] #4 left reyes -Time 12:00 -Correct Patient Yes -Correct Side, Site, Position Yes -Correct Procedure Yes -Procedure Performed Yes -Type of Procedure Debridement -Clinical Debridement Subcutaneous -Post Debridement Size (cm) - Length 2.0 -Post Debridement Size (cm) - Width 1.2 -Post Debridement Size (cm) - Depth 0.1 -Total Square Cm 2.40 -Wound/Ulcer Outcome Not Healed -Ulcer Cleansing Rinsed/ Irrigated with Saline -Foul Odor after Cleansing No -Bioengineered Tissue No -Bleeding Controlled with Pressure -Offloading No -Treatment Response Procedure Tolerated Well #3 Posterior LLE Cluster -Time 11:57 -Correct Patient Yes -Correct Side, Site, Position Yes -Correct Procedure Yes -Procedure Performed Yes -Type of Procedure Debridement -Clinical Debridement Subcutaneous -Post Debridement Size (cm) - Length 5.0 -Post Debridement Size (cm) - Width 6.0 -Post Debridement Size (cm) - Depth 0.2 -Total Square Cm 30.00 -Wound/Ulcer Outcome Not Healed -Ulcer Cleansing Rinsed/ Irrigated with Saline -Foul Odor after Cleansing No -Bioengineered Tissue No -Bleeding Controlled with Pressure -Offloading No -Treatment Response Procedure Tolerated Well [See Physician Procedure note for Specifics] Pain Scale: 0-10 Numeric [Pain] -Is Patient Pain Free? Yes Musculoskeletal: No Tenderness to Palpation of Joints or Extremities Lymphatic: No Cervical, Supraclavicular, or Inguinal Adenopathy Neurological: Cranial nerves II-XII grossly intact, Neuro grossly intact Psych/Mental Status: Normal Affect, Appropriate Debridement Note Post-Debridement Measurements/Treatment WC - Nurse 2 - General Ulcer CM Notes Start: 02/15/19 11:27 Freq: Status: Active Protocol: Activity Type Activity Date Activity User E-Sign Co-Sign Detail Recorded Client Recorded Date Recorded By Document 02/15/19 11:57 MW [id number] 02/15/19 12:02 MW 02/15/19 11:57 Wound Center Nurse 2 #4 left reyes -Time 12:00 -Correct Patient Yes -Correct Side, Site, Position Yes -Correct Procedure Yes -Procedure Performed Yes -Type of Procedure Debridement -Clinical Debridement Subcutaneous -Post Debridement Size (cm) - Length 2.0 -Post Debridement Size (cm) - Width 1.2 -Post Debridement Size (cm) - Depth 0.1 -Total Square Cm 2.40 -Wound/Ulcer Outcome Not Healed -Ulcer Cleansing Rinsed/ Irrigated with Saline -Foul Odor after Cleansing No -Bioengineered Tissue No -Bleeding Controlled with Pressure -Offloading No -Treatment Response Procedure Tolerated Well #3 Posterior LLE Cluster -Time 11:57 -Correct Patient Yes -Correct Side, Site, Position Yes -Correct Procedure Yes -Procedure Performed Yes -Type of Procedure Debridement -Clinical Debridement Subcutaneous -Post Debridement Size (cm) - Length 5.0 -Post Debridement Size (cm) - Width 6.0 -Post Debridement Size (cm) - Depth 0.2 -Total Square Cm 30.00 -Wound/Ulcer Outcome Not Healed -Ulcer Cleansing Rinsed/ Irrigated with Saline -Foul Odor after Cleansing No -Bioengineered Tissue No -Bleeding Controlled with Pressure -Offloading No -Treatment Response Procedure Tolerated Well Pain Scale: 0-10 Numeric Is Patient Pain Free? Yes Anesthesia Used: 5% Lidocaine Gel Depth: Down to and including healthy tissue Percentage of wound debrided: 100 Instrument Used: 7mm curette Tissue Removed: Fibrin Severity: Limited To Skin Breakdown Amount of bleeding with debridement: None - Additional Wound Wound debrided: Posterior calf Laterality: Left Type of Debridement: Excisional debridement Anesthesia Used: 5% Lidocaine Gel Depth: Down to and including healthy tissue Percentage of wound debrided: 100 Instrument Used: 7mm curette Tissue Removed: Off and fibrin Severity: Limited To Skin Breakdown Amount of bleeding with debridement: Mild Bleeding Controlled with: Compression and gauze Patient tolerated procedure: Patient tolerated procedure well Assessment/Plan Active Problems Peripheral arterial occlusive disease (Chronic) Edema of lower extremity (Chronic) Non-pressure ulcer of lower extremity with fat layer exposed (Acute) Peripheral vascular disease of lower extremity with ulceration (Acute) Assessment: Peripheral vascular disease with ulcers. Smoker. Edema lower extremities. Cellulitis Plan: Wash legs with antibacterial soaps. Apply Santyl to wound base cover Adaptic gauze mesh sleeve ABDs. Single layer Tubigrip to both legs and Sergio wrap over top. Follow-up in 1 week. Finish the fluconazole 100 mg 1 p.o. daily for 14 days with 1 refill as needed. Patient should get her urine checked with her regular family doctor
[2019-02-22 10:23] VITALS: BP 138/84; PULSE 69; RESP 18; TEMP 36.7
--- NOTE | 2019-02-22 12:27 | PCM.WC.PN ---
(1) Non-pressure ulcer of lower extremity with fat layer exposed Status: Acute Current Visit: Yes Code(s): L97.902 - Non-pressure chronic ulcer of unspecified part of unspecified lower leg with fat layer exposed (2) Peripheral vascular disease of lower extremity with ulceration Status: Acute Current Visit: Yes Code(s): I73.9 - Peripheral vascular disease, unspecified; L97.909 - Non-pressure chronic ulcer of unspecified part of unspecified lower leg with unspecified severity (3) Edema of lower extremity Status: Chronic Current Visit: Yes Code(s): R60.0 - Localized edema (4) Peripheral arterial occlusive disease Status: Chronic Current Visit: Yes Code(s): I77.9 - Disorder of arteries and arterioles, unspecified (5) Thrush of mouth and esophagus Status: Acute Current Visit: Yes Code(s): B37.81 - Candidal esophagitis; B37.0 - Candidal stomatitis Type of Wound Date of Service: 02/22/19 Chief Complaint: Follow-up on lower leg edema and ulcers History of Wound: 78-year-old white female that was referred to us from her family doctor from [place]. Approximately October 30 woke up one day and had severe edema of her lower extremities that she was unable to walk. Her daughter visits her daily noticed she had open sores on lower extremities and was oozing fluid. Went that she could not walk they took her by ambulance to the [facility]. Patient had an elevated BNP and was kept in the hospital for couple of days and discharged on water pills. Audiogram was normal has some valve problems no A. fib and history of hypertension and high cholesterol had her carotids cleared couple years ago. Today she has ulcers on the anterior and posterior right leg and posterior left leg. Typically irregular and edging well demarcated as you will see it in an arterial problem. We will get cultures of the wounds pre-albumin and we will have an AB study done and venous study of her lower extremities. Progress of Wound: Today the ulcers are only on the left posterior leg still has slight depth but is becoming half the size it was last week. The area is a zigzag shape on the back of her left leg still has some depth but finally is getting down to debridement of good skin using Santyl. Dr. Natarajan sent his note and he is waiting for her to heal from us and then he will do ablation and fix her legs in about 3 months. She does have some edema on and off of the right leg with seepage of water that develops into skin breakdown and will try Xeroform on those superficial areas. Also suggested with the seepage that she needs to pad better with thicker gauze so there is no drainage coming through to her stockinette. The slough is very much almost gone working to try her on Promogran for than last week see if we can heal her out. She saw Dr. Natarajan and he still wants her to continue walking compression finish wound care and follow-up with him in 3 months. He wants her to continue the protein drinks. Right leg is healed. She also has a small area on the left reyes that was blistered that open that were using Xeroform dressing on that healing well. Pre-albumin still came back even lower than the previous one and she has had a really bad case of oral thrush and is not eating properly so we feel like that is what is causing the malnutrition worsening. We have her on Diflucan and now we are going to add the oral nystatin swish and swallow. Daughter suggests that she is confused at times wonders to meds but I still suggest that she get her urine checked she might have a urinary tract infection from not eating and drinking. - Physical Exam Vital Signs Temp Pulse Resp BP 98.1 F 69 18 138/84 H 02/22/19 10:23 02/22/19 10:23 02/22/19 10:23 02/22/19 10:23 General: Oriented x3, Cooperative, Well developed HEENT: Atraumatic, PERRLA Oral: Moist Mucosa Neck: Supple, No JVD Lungs: Clear to auscultation, Normal air movement Cardiovascular: Regular rate, Regular Rhythm Abdomen: Bowel Sounds Present, Soft, Non Tender, No Hepato-splenomegaly Extremities: No clubbing, Edema Skin: Ulcer/ Wound - Wounds to the back of the left leg is exact shape more superficial this week Also has some skin tears on the anterior left reyes from wraps and is using Xeroform, Rash Present Wound Measurements and Assessment WC - Nurse 1 - General Ulcer Measurement Start: 02/15/19 11:27 Freq: Status: Active Protocol: Activity Type Activity Date Activity User E-Sign Co-Sign Detail Recorded Client Recorded Date Recorded By Document 02/22/19 10:23 RB [id number] 02/22/19 10:31 RB 02/22/19 10:23 Wound Center Nurse 1 [Ulcer Assessment] #4 left reyes -Combined with other wound No -Current Size (cm) - Length 1.8 -Current Size (cm) - Width 1 -Current Size (cm) - Depth 0.1 -Total Square Cm 1.8 -Tunneling No -Undermining/Tunneling No -Circular Undermining No -Exudate Amt Small -Exudate Type Serosanguineous -Wound Margin Flat & Intact -Granulation Amt Medium (34-66%) -Granulation Quality [place] -Slough/Fibrin Yes -Necrosis Amt Small (1-33%) -Necrotic Tissue Type Adherent Slough -Structure Exposed N/A -Texture (Denisse-wound Skin Appearance) Assessed -Moisture (Denisse-wound Skin Appearance Assessed ) -Color (Denisse-wound Skin Appearance) Assessed -Temperature (Denisse-wound Skin No Abnormality Appearance) (Pt Warm) -Tenderness on Palpation (Denisse-wound No Skin Appearance) -Ulcer Cleansing Wound Cleanser -Foul Odor after Cleansing No -Anesthetic Used 4% Lidocaine Solution #3 Posterior LLE Cluster -Combined with other wound No -Current Size (cm) - Length 3.5 -Current Size (cm) - Width 4.3 -Current Size (cm) - Depth 0.2 -Total Square Cm 15.05 -Tunneling No -Undermining/Tunneling No -Circular Undermining No -Exudate Amt Medium -Exudate Type Serosanguineous -Wound Margin Flat & Intact -Granulation Amt Large (67-100%) -Granulation Quality [place] -Slough/Fibrin Yes -Necrosis Amt Small (1-33%) -Necrotic Tissue Type Adherent Slough -Structure Exposed N/A -Texture (Denisse-wound Skin Appearance) Excoriation, Rash -Moisture (Denisse-wound Skin Appearance Maceration ) -Color (Denisse-wound Skin Appearance) Assessed, Erythema -Temperature (Denisse-wound Skin No Abnormality Appearance) (Pt Warm) -Tenderness on Palpation (Denisse-wound No Skin Appearance) -Ulcer Cleansing Wound Cleanser -Foul Odor after Cleansing No -Anesthetic Used 4% Lidocaine Solution [Edema Assessment] -Lower Limb Edema Present Yes WC - Nurse 2 - General Ulcer CM Notes Start: 09/06/19 11:27 Freq: Status: Active Protocol: Activity Type Activity Date Activity User E-Sign Co-Sign Detail Recorded Client Recorded Date Recorded By Document 02/22/19 11:25 MW [id number] 02/22/19 11:29 MW 02/22/19 11:25 Wound Center Nurse 2 [Procedure/Treatment] #4 left reyes -Time 11:26 -Correct Patient Yes -Correct Side, Site, Position Yes -Correct Procedure Yes -Procedure Performed No -Wound/Ulcer Outcome Not Healed -Ulcer Cleansing Rinsed/ Irrigated with Saline -Foul Odor after Cleansing No -Bioengineered Tissue No -Bleeding Controlled with NA -Offloading No -Treatment Response Procedure Tolerated Well #3 Posterior LLE Cluster -Time 11:25 -Correct Patient Yes -Correct Side, Site, Position Yes -Correct Procedure Yes -Procedure Performed Yes -Type of Procedure Debridement -Clinical Debridement Subcutaneous -Post Debridement Size (cm) - Length 3.8 -Post Debridement Size (cm) - Width 5.5 -Post Debridement Size (cm) - Depth 0.1 -Total Square Cm 20.90 -Wound/Ulcer Outcome Not Healed -Ulcer Cleansing Rinsed/ Irrigated with Saline -Foul Odor after Cleansing No -Bioengineered Tissue No -Bleeding Controlled with Pressure -Offloading No -Treatment Response Procedure Tolerated Well [See Physician Procedure note for Specifics] Pain Scale: 0-10 Numeric [Pain] -Is Patient Pain Free? Yes Musculoskeletal: No Tenderness to Palpation of Joints or Extremities Lymphatic: No Cervical, Supraclavicular, or Inguinal Adenopathy Neurological: Cranial nerves II-XII grossly intact, Neuro grossly intact Psych/Mental Status: Normal Affect, Appropriate Debridement Note Post-Debridement Measurements/Treatment WC - Nurse 2 - General Ulcer CM Notes Start: 02/15/19 11:27 Freq: Status: Active Protocol: Activity Type Activity Date Activity User E-Sign Co-Sign Detail Recorded Client Recorded Date Recorded By Document 02/15/19 11:57 MW [id number] 02/15/19 12:02 MW Document 02/22/19 11:25 MW [id number] 02/22/19 11:29 MW 02/15/19 02/22/19 11:57 11:25 Wound Center Nurse 2 #4 left reyes -Time 12:00 11:26 -Correct Patient Yes Yes -Correct Side, Site, Position Yes Yes -Correct Procedure Yes Yes -Procedure Performed Yes No -Type of Procedure Debridement -Clinical Debridement Subcutaneous -Post Debridement Size (cm) - Length 2.0 -Post Debridement Size (cm) - Width 1.2 -Post Debridement Size (cm) - Depth 0.1 -Total Square Cm 2.40 -Wound/Ulcer Outcome Not Healed Not Healed -Ulcer Cleansing Rinsed/ Rinsed/ Irrigated with Irrigated with Saline Saline -Foul Odor after Cleansing No No -Bioengineered Tissue No No -Bleeding Controlled with Pressure NA -Offloading No No -Treatment Response Procedure Procedure Tolerated Well Tolerated Well #3 Posterior LLE Cluster -Time 11:57 11:25 -Correct Patient Yes Yes -Correct Side, Site, Position Yes Yes -Correct Procedure Yes Yes -Procedure Performed Yes Yes -Type of Procedure Debridement Debridement -Clinical Debridement Subcutaneous Subcutaneous -Post Debridement Size (cm) - Length 5.0 3.8 -Post Debridement Size (cm) - Width 6.0 5.5 -Post Debridement Size (cm) - Depth 0.2 0.1 -Total Square Cm 30.00 20.90 -Wound/Ulcer Outcome Not Healed Not Healed -Ulcer Cleansing Rinsed/ Rinsed/ Irrigated with Irrigated with Saline Saline -Foul Odor after Cleansing No No -Bioengineered Tissue No No -Bleeding Controlled with Pressure Pressure -Offloading No No -Treatment Response Procedure Procedure Tolerated Well Tolerated Well Pain Scale: 0-10 Numeric Is Patient Pain Free? Yes Yes Wound debrided: Left posterior leg Type of Debridement: Excisional debridement Anesthesia Used: 5% Lidocaine Gel Depth: Down to and including healthy tissue, in the subcutaneous layer Percentage of wound debrided: 100 Instrument Used: 7mm curette Tissue Removed: Slough and devitalized tissue Severity: Limited To Skin Breakdown Amount of bleeding with debridement: None Bleeding Controlled with: Pressure Patient tolerated procedure well Assessment/Plan Active Problems Peripheral arterial occlusive disease (Chronic) Edema of lower extremity (Chronic) Non-pressure ulcer of lower extremity with fat layer exposed (Acute) Peripheral vascular disease of lower extremity with ulceration (Acute) Thrush of mouth and esophagus (Acute) Assessment: Peripheral vascular disease with ulcers. Smoker. Edema lower extremities. Cellulitis Plan: Wash legs with antibacterial soaps. Apply Promogran to wound base cover Adaptic gauze mesh sleeve ABDs. Single layer Tubigrip to both legs and Sergio wrap over top. Follow-up in 1 week. Start nystatin swish and swallow 100,000/mL 5 mL's 4 times daily x14 days. Finish the fluconazole 100 mg 1 p.o. daily for 14 days with 1 refill as needed. Patient should get her urine checked with her regular family doctor
[2019-03-01 10:05] VITALS: BP 150/84; PULSE 75; RESP 20; TEMP 36
--- NOTE | 2019-03-01 12:45 | PCM.WC.PN ---
(1) Non-pressure ulcer of lower extremity with fat layer exposed Status: Acute Current Visit: Yes Code(s): L97.902 - Non-pressure chronic ulcer of unspecified part of unspecified lower leg with fat layer exposed (2) Peripheral vascular disease of lower extremity with ulceration Status: Acute Current Visit: Yes Code(s): I73.9 - Peripheral vascular disease, unspecified; L97.909 - Non-pressure chronic ulcer of unspecified part of unspecified lower leg with unspecified severity (3) Edema of lower extremity Status: Chronic Current Visit: Yes Code(s): R60.0 - Localized edema (4) Peripheral arterial occlusive disease Status: Chronic Current Visit: Yes Code(s): I77.9 - Disorder of arteries and arterioles, unspecified (5) Thrush of mouth and esophagus Status: Acute Current Visit: Yes Code(s): B37.81 - Candidal esophagitis; B37.0 - Candidal stomatitis Type of Wound Date of Service: 03/01/19 Chief Complaint: Follow-up on lower leg edema and ulcers History of Wound: 78-year-old white female that was referred to us from her family doctor from [place]. Approximately October 30 woke up one day and had severe edema of her lower extremities that she was unable to walk. Her daughter visits her daily noticed she had open sores on lower extremities and was oozing fluid. Went that she could not walk they took her by ambulance to the [facility]. Patient had an elevated BNP and was kept in the hospital for couple of days and discharged on water pills. Audiogram was normal has some valve problems no A. fib and history of hypertension and high cholesterol had her carotids cleared couple years ago. Today she has ulcers on the anterior and posterior right leg and posterior left leg. Typically irregular and edging well demarcated as you will see it in an arterial problem. We will get cultures of the wounds pre-albumin and we will have an AB study done and venous study of her lower extremities. Progress of Wound: Today the ulcers are only on the left posterior leg still has slight depth but is much flatter and smaller in size. Dr. Natarajan sent his note and he is waiting for her to heal from us and then he will do ablation and fix her legs in about 3 months. She does have some edema on and off of the right leg with seepage of water that develops into skin breakdown and will try Xeroform on those superficial areas. Also suggested with the seepage that she needs to pad better with thicker gauze so there is no drainage coming through to her stockinette. The slough is very much almost gone working to try her on Promogran for than last week see if we can heal her out. She saw Dr. Natarajan and he still wants her to continue walking compression finish wound care and follow-up with him in 3 months. He wants her to continue the protein drinks. Right leg is healed. She also has a small area on the left reyes that was blistered that open that were using Xeroform dressing on that healing well. Pre-albumin still came back even lower than the previous one and she has had a really bad case of oral thrush and is not eating properly so we feel like that is what is causing the malnutrition worsening. We have her on Diflucan and now we are going to add the oral nystatin swish and swallow. Daughter suggests that she is confused at times wonders to meds but I still suggest that she get her urine checked she might have a urinary tract infection from not eating and drinking. - Physical Exam Vital Signs Temp Pulse Resp BP 96.8 F L 75 20 H 150/84 H 03/01/19 10:05 03/01/19 10:05 03/01/19 10:05 03/01/19 10:05 General: Oriented x3, Cooperative, Well developed HEENT: Atraumatic, PERRLA Oral: Moist Mucosa Neck: Supple, No JVD Lungs: Clear to auscultation, Normal air movement Cardiovascular: Regular rate, Regular Rhythm Abdomen: Bowel Sounds Present, Soft, Non Tender, No Hepato-splenomegaly Extremities: No clubbing, No edema Skin: Ulcer/ Wound - Left posterior lower leg Wound Measurements and Assessment WC - Nurse 1 - General Ulcer Measurement Start: 02/15/19 11:27 Freq: Status: Active Protocol: Activity Type Activity Date Activity User E-Sign Co-Sign Detail Recorded Client Recorded Date Recorded By Document 03/01/19 10:05 DL [id number] 03/01/19 10:17 DL 03/01/19 10:05 Wound Center Nurse 1 [Ulcer Assessment] #4 left reyes -Current Size (cm) - Length 0.4 -Current Size (cm) - Width 0.5 -Current Size (cm) - Depth 0.1 -Total Square Cm 0.20 -Photo Taken No -Exudate Amt None Present -Wound Margin Flat & Intact -Granulation Amt Small (1-33%) -Granulation Quality [place] -Necrosis Amt None Present (0 %) -Structure Exposed N/A -Texture (Denisse-wound Skin Appearance) Localized Edema ,Scarring -Moisture (Denisse-wound Skin Appearance Dry/Scaly ) -Color (Denisse-wound Skin Appearance) Hemosiderin Staining -Temperature (Denisse-wound Skin No Abnormality Appearance) (Pt Warm) -Tenderness on Palpation (Denisse-wound No Skin Appearance) -Ulcer Cleansing Wound Cleanser -Foul Odor after Cleansing No -Anesthetic Used 5% Lidocaine Gel #3 Posterior LLE Cluster -Current Size (cm) - Length 3 -Current Size (cm) - Width 4.8 -Current Size (cm) - Depth 0.2 -Total Square Cm 14.4 -Photo Taken No -Exudate Amt Small -Exudate Type Serosanguineous -Wound Margin Indistinct, Non -Visible -Granulation Amt Medium (34-66%) -Granulation Quality [place] -Necrosis Amt Medium (34-66%) -Necrotic Tissue Type Adherent Slough -Structure Exposed N/A -Texture (Denisse-wound Skin Appearance) Scarring -Moisture (Denisse-wound Skin Appearance Dry/Scaly ) -Color (Denisse-wound Skin Appearance) Hemosiderin Staining -Temperature (Denisse-wound Skin No Abnormality Appearance) (Pt Warm) -Tenderness on Palpation (Denisse-wound No Skin Appearance) -Ulcer Cleansing Wound Cleanser -Foul Odor after Cleansing No -Anesthetic Used 4% Lidocaine Solution [Edema Assessment] -Left Calf (cm) 37.5 -Left Ankle (cm) 26.6 WC - Nurse 2 - General Ulcer CM Notes Start: 02/15/19 11:27 Freq: Status: Active Protocol: Activity Type Activity Date Activity User E-Sign Co-Sign Detail Recorded Client Recorded Date Recorded By Document 03/01/19 10:52 MW [id number] 03/01/19 10:57 MW 03/01/19 10:52 Wound Center Nurse 2 [Procedure/Treatment] #4 left reyes -Time 10:53 -Correct Patient Yes -Correct Side, Site, Position Yes -Correct Procedure Yes -Procedure Performed No -Post Debridement Size (cm) - Length 0 -Post Debridement Size (cm) - Width 0 -Post Debridement Size (cm) - Depth 0 -Total Square Cm 0 -Wound/Ulcer Outcome Healed- Epithelialized #3 Posterior LLE Cluster -Time 10:53 -Correct Patient Yes -Correct Side, Site, Position Yes -Correct Procedure Yes -Procedure Performed Yes -Type of Procedure Debridement -Clinical Debridement Subcutaneous -Post Debridement Size (cm) - Length 3.5 -Post Debridement Size (cm) - Width 4.5 -Post Debridement Size (cm) - Depth 0.1 -Total Square Cm 15.75 -Wound/Ulcer Outcome Not Healed -Ulcer Cleansing Rinsed/ Irrigated with Saline -Foul Odor after Cleansing No -Bioengineered Tissue No -Bleeding Controlled with Pressure -Offloading No -Treatment Response Procedure Tolerated Well [See Physician Procedure note for Specifics] Pain Scale: 0-10 Numeric [Pain] -Is Patient Pain Free? Yes Musculoskeletal: No Tenderness to Palpation of Joints or Extremities Lymphatic: No Cervical, Supraclavicular, or Inguinal Adenopathy Neurological: Cranial nerves II-XII grossly intact, Neuro grossly intact Psych/Mental Status: Normal Affect, Appropriate Debridement Note Post-Debridement Measurements/Treatment WC - Nurse 2 - General Ulcer CM Notes Start: 02/15/19 11:27 Freq: Status: Active Protocol: Activity Type Activity Date Activity User E-Sign Co-Sign Detail Recorded Client Recorded Date Recorded By Document 02/15/19 11:57 MW [id number] 02/15/19 12:02 MW Document 02/22/19 11:25 MW [id number] 02/22/19 11:29 MW Document 03/01/19 10:52 MW [id number] 03/01/19 10:57 MW 02/15/19 02/22/19 03/01/19 11:57 11:25 10:52 Wound Center Nurse 2 #4 left reyes -Time 12:00 11:26 10:53 -Correct Patient Yes Yes Yes -Correct Side, Site, Position Yes Yes Yes -Correct Procedure Yes Yes Yes -Procedure Performed Yes No No -Type of Procedure Debridement -Clinical Debridement Subcutaneous -Post Debridement Size (cm) - Length 2.0 0 -Post Debridement Size (cm) - Width 1.2 0 -Post Debridement Size (cm) - Depth 0.1 0 -Total Square Cm 2.40 0 -Wound/Ulcer Outcome Not Healed Not Healed Healed- Epithelialized -Ulcer Cleansing Rinsed/ Rinsed/ Irrigated with Irrigated with Saline Saline -Foul Odor after Cleansing No No -Bioengineered Tissue No No -Bleeding Controlled with Pressure NA -Offloading No No -Treatment Response Procedure Procedure Tolerated Well Tolerated Well #3 Posterior LLE Cluster -Time 11:57 11:25 10:53 -Correct Patient Yes Yes Yes -Correct Side, Site, Position Yes Yes Yes -Correct Procedure Yes Yes Yes -Procedure Performed Yes Yes Yes -Type of Procedure Debridement Debridement Debridement -Clinical Debridement Subcutaneous Subcutaneous Subcutaneous -Post Debridement Size (cm) - Length 5.0 3.8 3.5 -Post Debridement Size (cm) - Width 6.0 5.5 4.5 -Post Debridement Size (cm) - Depth 0.2 0.1 0.1 -Total Square Cm 30.00 20.90 15.75 -Wound/Ulcer Outcome Not Healed Not Healed Not Healed -Ulcer Cleansing Rinsed/ Rinsed/ Rinsed/ Irrigated with Irrigated with Irrigated with Saline Saline Saline -Foul Odor after Cleansing No No No -Bioengineered Tissue No No No -Bleeding Controlled with Pressure Pressure Pressure -Offloading No No No -Treatment Response Procedure Procedure Procedure Tolerated Well Tolerated Well Tolerated Well Pain Scale: 0-10 Numeric Is Patient Pain Free? Yes Yes Yes Wound debrided: Posterior lower leg wound Type of Debridement: Excisional debridement Anesthesia Used: 5% Lidocaine Gel Depth: Down to and including healthy tissue, in the subcutaneous layer Percentage of wound debrided: 100 Instrument Used: 7mm curette Tissue Removed: Slough and fibrin Severity: Limited To Skin Breakdown Amount of bleeding with debridement: None Bleeding Controlled with: Compression and gauze Patient tolerated procedure well Assessment/Plan Active Problems Peripheral arterial occlusive disease (Chronic) Edema of lower extremity (Chronic) Non-pressure ulcer of lower extremity with fat layer exposed (Acute) Peripheral vascular disease of lower extremity with ulceration (Acute) Thrush of mouth and esophagus (Acute) Assessment: Peripheral vascular disease with ulcers. Smoker. Edema lower extremities. Cellulitis Plan: Wash legs with antibacterial soaps. Apply Promogran to wound base cover Adaptic gauze mesh sleeve ABDs. Single layer Tubigrip to both legs and Sergio wrap over top. Follow-up in 1 week. Start nystatin swish and swallow 100,000/mL 5 mL's 4 times daily x14 days. Finish the fluconazole 100 mg 1 p.o. daily for 14 days with 1 refill as needed. Patient should get her urine checked with her regular family doctor
== END 2019-03-11 23:59 ==
LOC: WC 10:15
PROVIDERS: Family Provider Family Medicine; PCP Family Medicine; Referring Provider Nurse Practitioner; Visit Provider Nurse Practitioner
DX: I73.9 Peripheral vascular disease, unspecified (principal); R60.0 Localized edema; I10 Essential (primary) hypertension; E78.00 Pure hypercholesterolemia, unspecified; L97.221 Non-pressure chronic ulcer of left calf limited to breakdown of skin; F17.200 Nicotine dependence, unspecified, uncomplicated; B37.0 Candidal stomatitis
CPT/HCPCS: 11042; 11045

== ENCOUNTER 2019-03-29 10:15 | Outpatient (RCR) | payer MEDICARE, OTHER, SELFPAY ==
[2019-03-12 00:46] VITALS: BP 150/84; PULSE 75; RESP 20; TEMP 36
[2019-03-15 10:15] VITALS: BP 148/84; PULSE 73; RESP 18; TEMP 35.5
--- NOTE | 2019-03-15 12:22 | PN.PCM_ITS ---
(1) Non-pressure ulcer of lower extremity with fat layer exposed Status: Acute Current Visit: Yes Code(s): L97.902 - Non-pressure chronic ulcer of unspecified part of unspecified lower leg with fat layer exposed (2) Peripheral vascular disease of lower extremity with ulceration Status: Acute Current Visit: Yes Code(s): I73.9 - Peripheral vascular disease, unspecified; L97.909 - Non-pressure chronic ulcer of unspecified part of unspecified lower leg with unspecified severity (3) Edema of lower extremity Status: Chronic Current Visit: Yes Code(s): R60.0 - Localized edema (4) Edema of lower extremity due to peripheral venous insufficiency Status: Chronic Current Visit: Yes Code(s): I87.2 - Venous insufficiency (chronic) (peripheral) (5) History of multiple strokes Status: Chronic Current Visit: Yes Code(s): Z86.73 - Personal history of transient ischemic attack (TIA), and cerebral infarction without residual deficits Type of Wound Date of Service: 03/15/19 Chief Complaint: Follow-up on lower leg edema and ulcers History of Wound: 78-year-old white female that was referred to us from her family doctor from [place]. Approximately October 30 woke up one day and had severe edema of her lower extremities that she was unable to walk. Her daughter visits her daily noticed she had open sores on lower extremities and was oozing fluid. Went that she could not walk they took her by ambulance to the [facility]. Patient had an elevated BNP and was kept in the hospital for couple of days and discharged on water pills. Audiogram was normal has some valve problems no A. fib and history of hypertension and high cholesterol had her carotids cleared couple years ago. Today she has ulcers on the anterior and posterior right leg and posterior left leg. Typically irregular and edging well demarcated as you will see it in an arterial problem. We will get cultures of the wounds pre- albumin and we will have an AB study done and venous study of her lower extremities. Progress of Wound: Today the ulcers are only on the left posterior leg still has slight depth but is much flatter and smaller in size. Dr. Natarajan sent his note and he is waiting for her to heal from us and then he will do ablation and fix her legs in about 3 months. She does have some edema on and off of the right leg with seepage of water that develops into skin breakdown and will try Xeroform on those superficial areas. Also suggested with the seepage that she needs to pad better with thicker gauze so there is no drainage coming through to her stockinette. The slough is very much almost gone working to try her on Promogran for than last week see if we can heal her out. She saw Dr. Natarajan and he still wants her to continue walking compression finish wound care and follow-up with him in 3 months. He wants her to continue the protein drinks. Right leg is healed. She also has a small area on the left reyes that was blistered that open that were using Xeroform dressing on that healing well. Pre-albumin still came back even lower than the previous one and she has had a really bad case of oral thrush and is not eating properly so we feel like that is what is causing the malnutrition worsening. We have her on Diflucan and now we are going to add the oral nystatin swish and swallow. Daughter suggests that she is confused at times wonders to meds but I still suggest that she get her u rine checked she might have a urinary tract infection from not eating and drinking. - Physical Exam Vital Signs Temp Pulse Resp BP 96 F L 73 18 148/84 H 03/15/19 10:15 03/15/19 10:15 03/15/19 10:15 03/15/19 10:15 General: Oriented x3, Cooperative, Well developed HEENT: Atraumatic, PERRLA Oral: Moist Mucosa Neck: Supple, No JVD Lungs: Clear to auscultation, Normal air movement Cardiovascular: Regular rate, Regular Rhythm Abdomen: Bowel Sounds Present, Soft, Non Tender, No Hepato-splenomegaly Extremities: No clubbing, No edema, - - Left posterior legs Skin: Ulcer/ Wound Wound Measurements and Assessment WC - Nurse 1 - General Ulcer Measurement Start: 03/15/19 10:15 Freq: Status: Active Protocol: Activity Type Activity Date Activity User E-Sign Co-Sign Detail Recorded Client Recorded Date Recorded By Document 03/15/19 10:15 [facility] [id number] 03/15/19 10:24 BM 03/15/19 10:15 Wound Center Nurse 1 [Ulcer Assessment] #3 Posterior LLE Cluster -Combined with other wound No -Current Size (cm) - Length 3 -Current Size (cm) - Width 4.3 -Current Size (cm) - Depth 0.2 -Total Square Cm 12.9 -Photo Taken No -Epithelialization Small 1-33% -Tunneling No -Undermining/Tunneling No -Circular Undermining No -Exudate Amt Small -Exudate Type Serosanguineous -Wound Margin Flat & Intact -Granulation Amt Medium (34-66%) -Granulation Quality Red -Slough/Fibrin Yes -Necrosis Amt Medium (34-66%) -Necrotic Tissue Type Adherent Slough -Texture (Denisse-wound Skin Appearance) Assessed, Excoriation, Scarring -Moisture (Denisse-wound Skin Appearance Assessed ) -Color (Denisse-wound Skin Appearance) Assessed, Erythema -Temperature (Denisse-wound Skin No Abnormality Appearance) (Pt Warm) -Tenderness on Palpation (Denisse-wound No Skin Appearance) -Ulcer Cleansing Rinsed/ Irrigated with Saline -Foul Odor after Cleansing No -Anesthetic Used 5% Lidocaine Gel [Edema Assessment] -Lower Limb Edema Present Yes -Left Calf (cm) 41.5 -Left Ankle (cm) 25.8 WC - Nurse 2 - General Ulcer CM Notes Start: 03/15/19 10:15 Freq: Status: Active Protocol: Activity Type Activity Date Activity User E-Sign Co-Sign Detail Recorded Client Recorded Date Recorded By Document 03/15/19 10:35 MW [id number] 03/15/19 10:37 MW 03/15/19 10:35 Wound Center Nurse 2 [Procedure/Treatment] #3 Posterior LLE Cluster -Time 10:36 -Correct Patient Yes -Correct Side, Site, Position Yes -Correct Procedure Yes -Procedure Performed Yes -Type of Procedure Debridement -Clinical Debridement Subcutaneous -Post Debridement Size (cm) - Length 3.6 -Post Debridement Size (cm) - Width 4.0 -Post Debridement Size (cm) - Depth 0.2 -Total Square Cm 14.40 -Wound/Ulcer Outcome Not Healed -Ulcer Cleansing Rinsed/ Irrigated with Saline -Foul Odor after Cleansing No -Bioengineered Tissue No -Bleeding Controlled with Pressure -Offloading No -Treatment Response Procedure Tolerated Well [See Physician Procedure note for Specifics] Pain Scale: 0-10 Numeric [Pain] -Is Patient Pain Free? Yes Musculoskeletal: No Tenderness to Palpation of Joints or Extremities Lymphatic: No Cervical, Supraclavicular, or Inguinal Adenopathy Neurological: Cranial nerves II-XII grossly intact, Neuro grossly intact Psych/Mental Status: Normal Affect, Appropriate, Alert and oriented to time, place, person, mood and affect Debridement Note Post-Debridement Measurements/Treatment WC - Nurse 2 - General Ulcer CM Notes Start: 03/15/19 10:15 Freq: Status: Active Protocol: Activity Type Activity Date Activity User E-Sign Co-Sign Detail Recorded Client Recorded Date Recorded By Document 03/15/19 10:35 MW [id number] 03/15/19 10:37 MW 03/15/19 10:35 Wound Center Nurse 2 #3 Posterior LLE Cluster -Time 10:36 -Correct Patient Yes -Correct Side, Site, Position Yes -Correct Procedure Yes -Procedure Performed Yes -Type of Procedure Debridement -Clinical Debridement Subcutaneous -Post Debridement Size (cm) - Length 3.6 -Post Debridement Size (cm) - Width 4.0 -Post Debridement Size (cm) - Depth 0.2 -Total Square Cm 14.40 -Wound/Ulcer Outcome Not Healed -Ulcer Cleansing Rinsed/ Irrigated with Saline -Foul Odor after Cleansing No -Bioengineered Tissue No -Bleeding Controlled with Pressure -Offloading No -Treatment Response Procedure Tolerated Well Pain Scale: 0-10 Numeric Is Patient Pain Free? Yes Wound debrided: Posterior leg cluster Type of Debridement: Excisional debridement Anesthesia Used: 5% Lidocaine Gel Depth: Down to and including healthy tissue, in the subcutaneous layer Percentage of wound debrided: 100 Instrument Used: 7mm curette Tissue Removed: Fibrin and some devitalized tissue Severity: Limited To Skin Breakdown Amount of bleeding with debridement: None Bleeding Controlled with: Compression and gauze Patient tolerated procedure well Assessment/Plan Active Problems Edema of lower extremity (Chronic) Edema of lower extremity due to peripheral venous insufficiency (Chronic) Non-pressure ulcer of lower extremity with fat layer exposed (Acute) History of multiple strokes (Chronic) Peripheral vascular disease of lower extremity with ulceration (Acute) Assessment: Peripheral vascular disease with ulcers. Smoker. Edema lower extremities. Cellulitis Plan: Wash legs with antibacterial soaps. Apply Promogran to wound base gauze mesh sleeve ABDs. Single layer Tubigrip to both legs and Sergio wrap over top. Follow-up in 1 week. Finish the fluconazole 100 mg 1 p.o. daily for 14 days with 1 refill as needed. Patient should get her urine checked with her regular family doctor
[2019-03-22 10:32] VITALS: BP 111/69; PULSE 67; RESP 18; TEMP 36.1
--- NOTE | 2019-03-22 10:57 | PCM.WC.PN ---
(1) Non-pressure ulcer of lower extremity with fat layer exposed Status: Acute Current Visit: Yes Code(s): L97.902 - Non-pressure chronic ulcer of unspecified part of unspecified lower leg with fat layer exposed (2) Peripheral vascular disease of lower extremity with ulceration Status: Acute Current Visit: Yes Code(s): I73.9 - Peripheral vascular disease, unspecified; L97.909 - Non-pressure chronic ulcer of unspecified part of unspecified lower leg with unspecified severity (3) Edema of lower extremity Status: Chronic Current Visit: Yes Code(s): R60.0 - Localized edema (4) Edema of lower extremity due to peripheral venous insufficiency Status: Chronic Current Visit: Yes Code(s): I87.2 - Venous insufficiency (chronic) (peripheral) (5) History of multiple strokes Status: Chronic Current Visit: Yes Code(s): Z86.73 - Personal history of transient ischemic attack (TIA), and cerebral infarction without residual deficits Type of Wound Date of Service: 03/22/19 Chief Complaint: Follow-up on lower leg edema and ulcers History of Wound: 78-year-old white female that was referred to us from her family doctor from [place]. Approximately October 30 woke up one day and had severe edema of her lower extremities that she was unable to walk. Her daughter visits her daily noticed she had open sores on lower extremities and was oozing fluid. Went that she could not walk they took her by ambulance to the [facility]. Patient had an elevated BNP and was kept in the hospital for couple of days and discharged on water pills. Audiogram was normal has some valve problems no A. fib and history of hypertension and high cholesterol had her carotids cleared couple years ago. Today she has ulcers on the anterior and posterior right leg and posterior left leg. Typically irregular and edging well demarcated as you will see it in an arterial problem. We will get cultures of the wounds pre-albumin and we will have an AB study done and venous study of her lower extremities. Progress of Wound: Today the ulcers are only on the left posterior leg still has slight depth but is much flatter and smaller in size. Dr. Natarajan sent his note and he is waiting for her to heal from us and then he will do ablation and fix her legs in about 3 months. She does have some edema on and off of the right leg with seepage of water that develops into skin breakdown and will try Xeroform on those superficial areas. Also suggested with the seepage that she needs to pad better with thicker gauze so there is no drainage coming through to her stockinette. The slough is very much almost gone working to try her on Promogran for than last week see if we can heal her out. She saw Dr. Natarajan and he still wants her to continue walking compression finish wound care and follow-up with him in 3 months. He wants her to continue the protein drinks. Right leg is healed. She also has a small area on the left reyes that was blistered that open that were using Xeroform dressing on that healing well. Pre-albumin still came back even lower than the previous one and she has had a really bad case of oral thrush and is not eating properly so we feel like that is what is causing the malnutrition worsening. We have her on Diflucan and now we are going to add the oral nystatin swish and swallow. Daughter suggests that she is confused at times wonders to meds but I still suggest that she get her urine checked she might have a urinary tract infection from not eating and drinking. - Physical Exam Vital Signs Temp Pulse Resp BP 97 F L 67 18 111/69 03/22/19 10:32 03/22/19 10:32 03/22/19 10:32 03/22/19 10:32 General: Oriented x3, Cooperative, Well developed HEENT: Atraumatic, PERRLA Oral: Moist Mucosa Neck: Supple, No JVD Lungs: Clear to auscultation, Normal air movement Cardiovascular: Regular rate, Regular Rhythm Abdomen: Bowel Sounds Present, Soft, Non Tender, No Hepato-splenomegaly Extremities: No clubbing, No edema Skin: Ulcer/ Wound - Left posterior calf Wound Measurements and Assessment WC - Nurse 1 - General Ulcer Measurement Start: 03/15/19 10:15 Freq: Status: Active Protocol: Activity Type Activity Date Activity User E-Sign Co-Sign Detail Recorded Client Recorded Date Recorded By Document 03/22/19 10:32 RB [id number] 03/22/19 10:35 RB 03/22/19 10:32 Wound Center Nurse 1 [Ulcer Assessment] #3 Posterior LLE Cluster -Combined with other wound No -Current Size (cm) - Length 2 -Current Size (cm) - Width 5 -Current Size (cm) - Depth 0.1 -Total Square Cm 10 -Tunneling No -Undermining/Tunneling No -Circular Undermining No -Exudate Amt Medium -Exudate Type Serosanguineous -Wound Margin Flat & Intact -Granulation Amt Large (67-100%) -Granulation Quality [place] -Slough/Fibrin Yes -Necrosis Amt Small (1-33%) -Necrotic Tissue Type Adherent Slough -Structure Exposed N/A -Texture (Denisse-wound Skin Appearance) Assessed -Moisture (Denisse-wound Skin Appearance Assessed ) -Color (Denisse-wound Skin Appearance) Assessed, Hemosiderin Staining -Temperature (Denisse-wound Skin No Abnormality Appearance) (Pt Warm) -Tenderness on Palpation (Denisse-wound No Skin Appearance) -Ulcer Cleansing Wound Cleanser -Foul Odor after Cleansing No -Anesthetic Used 5% Lidocaine Gel [Edema Assessment] -Lower Limb Edema Present Yes -Right Calf (cm) 48.5 -Right Ankle (cm) 22.5 -Left Calf (cm) 42 -Left Ankle (cm) 27 WC - Nurse 2 - General Ulcer CM Notes Start: 03/15/19 10:15 Freq: Status: Active Protocol: Activity Type Activity Date Activity User E-Sign Co-Sign Detail Recorded Client Recorded Date Recorded By Document 03/22/19 10:46 MW [id number] 03/22/19 10:49 MW 03/22/19 10:46 Wound Center Nurse 2 [Procedure/Treatment] #3 Posterior LLE Cluster -Time 10:46 -Correct Patient Yes -Correct Side, Site, Position Yes -Correct Procedure Yes -Procedure Performed Yes -Type of Procedure Debridement -Clinical Debridement Subcutaneous -Post Debridement Size (cm) - Length 4.0 -Post Debridement Size (cm) - Width 5.5 -Post Debridement Size (cm) - Depth 0.2 -Total Square Cm 22.00 -Wound/Ulcer Outcome Not Healed -Ulcer Cleansing Rinsed/ Irrigated with Saline -Foul Odor after Cleansing No -Bioengineered Tissue No -Bleeding Controlled with Pressure -Offloading No -Treatment Response Procedure Tolerated Well [See Physician Procedure note for Specifics] Pain Scale: 0-10 Numeric [Pain] -Is Patient Pain Free? Yes Musculoskeletal: No Tenderness to Palpation of Joints or Extremities Lymphatic: No Cervical, Supraclavicular, or Inguinal Adenopathy Neurological: Cranial nerves II-XII grossly intact, Neuro grossly intact Psych/Mental Status: Normal Affect, Appropriate Debridement Note Post-Debridement Measurements/Treatment WC - Nurse 2 - General Ulcer CM Notes Start: 03/15/19 10:15 Freq: Status: Active Protocol: Activity Type Activity Date Activity User E-Sign Co-Sign Detail Recorded Client Recorded Date Recorded By Document 03/15/19 10:35 MW [id number] 03/15/19 10:37 MW Document 03/22/19 10:46 MW [id number] 03/22/19 10:49 MW 03/15/19 03/22/19 10:35 10:46 Wound Center Nurse 2 #3 Posterior LLE Cluster -Time 10:36 10:46 -Correct Patient Yes Yes -Correct Side, Site, Position Yes Yes -Correct Procedure Yes Yes -Procedure Performed Yes Yes -Type of Procedure Debridement Debridement -Clinical Debridement Subcutaneous Subcutaneous -Post Debridement Size (cm) - Length 3.6 4.0 -Post Debridement Size (cm) - Width 4.0 5.5 -Post Debridement Size (cm) - Depth 0.2 0.2 -Total Square Cm 14.40 22.00 -Wound/Ulcer Outcome Not Healed Not Healed -Ulcer Cleansing Rinsed/ Rinsed/ Irrigated with Irrigated with Saline Saline -Foul Odor after Cleansing No No -Bioengineered Tissue No No -Bleeding Controlled with Pressure Pressure -Offloading No No -Treatment Response Procedure Procedure Tolerated Well Tolerated Well Pain Scale: 0-10 Numeric Is Patient Pain Free? Yes Yes Wound debrided: Posterior calf Laterality: Left Type of Debridement: Excisional debridement Anesthesia Used: 5% Lidocaine Gel Depth: Down to and including healthy tissue, in the subcutaneous layer Percentage of wound debrided: 100 Instrument Used: 7mm curette Tissue Removed: Fibrin and slough Severity: Limited To Skin Breakdown Amount of bleeding with debridement: None Bleeding Controlled with: Pressure Patient tolerated procedure well Assessment/Plan Active Problems Edema of lower extremity (Chronic) Edema of lower extremity due to peripheral venous insufficiency (Chronic) Non-pressure ulcer of lower extremity with fat layer exposed (Acute) History of multiple strokes (Chronic) Peripheral vascular disease of lower extremity with ulceration (Acute) Assessment: Peripheral vascular disease with ulcers. Smoker. Edema lower extremities. Cellulitis Plan: Wash legs with antibacterial soaps. Apply Promogran to wound base gauze mesh sleeve ABDs. Single layer Tubigrip to both legs and Sergio wrap over top. Follow-up in 1 week. Finish the fluconazole 100 mg 1 p.o. daily for 14 days with 1 refill as needed. Patient should get her urine checked with her regular family doctor
[2019-03-29 10:18] VITALS: BP 121/57; PULSE 62; RESP 20; TEMP 35.5
--- NOTE | 2019-03-29 11:47 | PCM.WC.PN ---
(1) Non-pressure ulcer of lower extremity with fat layer exposed Status: Acute Current Visit: Yes Code(s): L97.902 - Non-pressure chronic ulcer of unspecified part of unspecified lower leg with fat layer exposed (2) Peripheral vascular disease of lower extremity with ulceration Status: Acute Current Visit: Yes Code(s): I73.9 - Peripheral vascular disease, unspecified; L97.909 - Non-pressure chronic ulcer of unspecified part of unspecified lower leg with unspecified severity (3) Edema of lower extremity Status: Chronic Current Visit: Yes Code(s): R60.0 - Localized edema (4) Edema of lower extremity due to peripheral venous insufficiency Status: Chronic Current Visit: Yes Code(s): I87.2 - Venous insufficiency (chronic) (peripheral) (5) History of multiple strokes Status: Chronic Current Visit: Yes Code(s): Z86.73 - Personal history of transient ischemic attack (TIA), and cerebral infarction without residual deficits Type of Wound Date of Service: 03/29/19 Chief Complaint: Follow-up on lower leg edema and ulcers History of Wound: 78-year-old white female that was referred to us from her family doctor from [place]. Approximately October 30 woke up one day and had severe edema of her lower extremities that she was unable to walk. Her daughter visits her daily noticed she had open sores on lower extremities and was oozing fluid. Went that she could not walk they took her by ambulance to the [facility]. Patient had an elevated BNP and was kept in the hospital for couple of days and discharged on water pills. Audiogram was normal has some valve problems no A. fib and history of hypertension and high cholesterol had her carotids cleared couple years ago. Today she has ulcers on the anterior and posterior right leg and posterior left leg. Typically irregular and edging well demarcated as you will see it in an arterial problem. We will get cultures of the wounds pre-albumin and we will have an AB study done and venous study of her lower extremities. Progress of Wound: Today the ulcers are only on the left posterior leg still has slight depth but is much flatter and smaller in size. Dr. Natarajan sent his note and he is waiting for her to heal from us and then he will do ablation and fix her legs in about 3 months. She does have some edema on and off of the right leg with seepage of water that develops into skin breakdown and will try Xeroform on those superficial areas. Also suggested with the seepage that she needs to pad better with thicker gauze so there is no drainage coming through to her stockinette. The slough is very much almost gone working to try her on Promogran for than last week see if we can heal her out. She saw Dr. Natarajan and he still wants her to continue walking compression finish wound care and follow-up with him in 3 months. He wants her to continue the protein drinks. Right leg is healed. She also has a small area on the left reyes that was blistered that open that were using Xeroform dressing on that healing well. Pre-albumin still came back even lower than the previous one and she has had a really bad case of oral thrush and is not eating properly so we feel like that is what is causing the malnutrition worsening. We have her on Diflucan and now we are going to add the oral nystatin swish and swallow. Daughter suggests that she is confused at times wonders to meds but I still suggest that she get her urine checked she might have a urinary tract infection from not eating and drinking. - Physical Exam Vital Signs Temp Pulse Resp BP 96 F L 62 20 H 121/57 H 03/29/19 10:18 03/29/19 10:18 03/29/19 10:18 03/29/19 10:18 General: Oriented x3, Cooperative, Well developed HEENT: Atraumatic, PERRLA Oral: Moist Mucosa Neck: Supple, No JVD Lungs: Clear to auscultation, Normal air movement Cardiovascular: Regular rate, Regular Rhythm Abdomen: Bowel Sounds Present, Soft, Non Tender, No Hepato-splenomegaly Extremities: No clubbing, No edema Skin: Ulcer/ Wound - Posterior leg Wound Measurements and Assessment WC - Nurse 1 - General Ulcer Measurement Start: 03/15/19 10:15 Freq: Status: Active Protocol: Activity Type Activity Date Activity User E-Sign Co-Sign Detail Recorded Client Recorded Date Recorded By Document 03/29/19 10:18 DL [id number] 03/29/19 10:29 DL 03/29/19 10:18 Wound Center Nurse 1 [Ulcer Assessment] #3 Posterior LLE Cluster -Combined with other wound No -Current Size (cm) - Length 6 -Current Size (cm) - Width 6 -Current Size (cm) - Depth 0.1 -Total Square Cm 36 -Photo Taken No -Exudate Amt Small -Exudate Type Serosanguineous -Wound Margin Thickened -Granulation Amt Medium (34-66%) -Granulation Quality [place] -Necrosis Amt Medium (34-66%) -Necrotic Tissue Type Adherent Slough -Structure Exposed N/A -Texture (Denisse-wound Skin Appearance) Scarring -Moisture (Denisse-wound Skin Appearance Maceration ) -Color (Denisse-wound Skin Appearance) Hemosiderin Staining -Temperature (Denisse-wound Skin No Abnormality Appearance) (Pt Warm) -Tenderness on Palpation (Denisse-wound Yes Skin Appearance) -Ulcer Cleansing Wound Cleanser -Foul Odor after Cleansing No -Anesthetic Used 4% Lidocaine Solution [Edema Assessment] -Right Calf (cm) 42 -Right Ankle (cm) 25 -Left Calf (cm) 37 -Left Ankle (cm) 26 WC - Nurse 2 - General Ulcer CM Notes Start: 03/15/19 10:15 Freq: Status: Active Protocol: Activity Type Activity Date Activity User E-Sign Co-Sign Detail Recorded Client Recorded Date Recorded By Document 03/29/19 10:41 MW [id number] 03/29/19 10:48 MW 03/29/19 10:41 Wound Center Nurse 2 [Procedure/Treatment] #3 Posterior LLE Cluster -Time 10:42 -Correct Patient Yes -Correct Side, Site, Position Yes -Correct Procedure Yes -Procedure Performed Yes -Type of Procedure Debridement -Clinical Debridement Subcutaneous -Post Debridement Size (cm) - Length 2.5 -Post Debridement Size (cm) - Width 4.5 -Post Debridement Size (cm) - Depth 0.2 -Total Square Cm 11.25 -Wound/Ulcer Outcome Not Healed -Ulcer Cleansing Rinsed/ Irrigated with Saline -Foul Odor after Cleansing No -Bioengineered Tissue No -Bleeding Controlled with Pressure -Offloading No -Treatment Response Procedure Tolerated Well [See Physician Procedure note for Specifics] Pain Scale: 0-10 Numeric [Pain] -Is Patient Pain Free? Yes Musculoskeletal: No Tenderness to Palpation of Joints or Extremities Lymphatic: No Cervical, Supraclavicular, or Inguinal Adenopathy Neurological: Cranial nerves II-XII grossly intact, Neuro grossly intact Psych/Mental Status: Normal Affect, Appropriate Debridement Note Post-Debridement Measurements/Treatment WC - Nurse 2 - General Ulcer CM Notes Start: 03/15/19 10:15 Freq: Status: Active Protocol: Activity Type Activity Date Activity User E-Sign Co-Sign Detail Recorded Client Recorded Date Recorded By Document 03/15/19 10:35 MW [id number] 03/15/19 10:37 MW Document 03/22/19 10:46 MW [id number] 03/22/19 10:49 MW Document 03/29/19 10:41 MW [id number] 03/29/19 10:48 MW 03/15/19 03/22/19 03/29/19 10:35 10:46 10:41 Wound Center Nurse 2 #3 Posterior LLE Cluster -Time 10:36 10:46 10:42 -Correct Patient Yes Yes Yes -Correct Side, Site, Position Yes Yes Yes -Correct Procedure Yes Yes Yes -Procedure Performed Yes Yes Yes -Type of Procedure Debridement Debridement Debridement -Clinical Debridement Subcutaneous Subcutaneous Subcutaneous -Post Debridement Size (cm) - Length 3.6 4.0 2.5 -Post Debridement Size (cm) - Width 4.0 5.5 4.5 -Post Debridement Size (cm) - Depth 0.2 0.2 0.2 -Total Square Cm 14.40 22.00 11.25 -Wound/Ulcer Outcome Not Healed Not Healed Not Healed -Ulcer Cleansing Rinsed/ Rinsed/ Rinsed/ Irrigated with Irrigated with Irrigated with Saline Saline Saline -Foul Odor after Cleansing No No No -Bioengineered Tissue No No No -Bleeding Controlled with Pressure Pressure Pressure -Offloading No No No -Treatment Response Procedure Procedure Procedure Tolerated Well Tolerated Well Tolerated Well Pain Scale: 0-10 Numeric Is Patient Pain Free? Yes Yes Yes Wound debrided: Posterior leg Laterality: Left Type of Debridement: Excisional debridement Anesthesia Used: 5% Lidocaine Gel Depth: Down to and including healthy tissue, in the subcutaneous layer Percentage of wound debrided: 100 Instrument Used: 7mm curette Tissue Removed: Fibrin Severity: Limited To Skin Breakdown Amount of bleeding with debridement: None Bleeding Controlled with: Compression and gauze Patient tolerated procedure well Assessment/Plan Active Problems Edema of lower extremity (Chronic) Edema of lower extremity due to peripheral venous insufficiency (Chronic) Non-pressure ulcer of lower extremity with fat layer exposed (Acute) History of multiple strokes (Chronic) Peripheral vascular disease of lower extremity with ulceration (Acute) Assessment: Peripheral vascular disease with ulcers. Smoker. Edema lower extremities. Cellulitis Plan: Wash legs with antibacterial soaps. Apply Promogran to wound base gauze mesh sleeve ABDs. Single layer Tubigrip to both legs and Sergio wrap over top. Follow-up in 1 week. Finish the fluconazole 100 mg 1 p.o. daily for 14 days with 1 refill as needed. Patient should get her urine checked with her regular family doctor
== END 2019-04-11 23:59 ==
LOC: WC 10:15
PROVIDERS: Family Provider Family Medicine; PCP Family Medicine; Referring Provider Nurse Practitioner; Visit Provider Nurse Practitioner
DX: I73.9 Peripheral vascular disease, unspecified (principal); L97.221 Non-pressure chronic ulcer of left calf limited to breakdown of skin; R60.0 Localized edema; I87.2 Venous insufficiency (chronic) (peripheral); E78.00 Pure hypercholesterolemia, unspecified; I10 Essential (primary) hypertension
CPT/HCPCS: 11042; 11045; 84134; 87070; 87075; 87077; 87186; 87205

== ENCOUNTER 2019-04-12 09:54 | Outpatient (RCR) | payer MEDICARE, OTHER, SELFPAY ==
[2019-04-12 00:46] VITALS: BP 121/57; PULSE 62; RESP 20; TEMP 35.5
[2019-04-12 10:41] VITALS: BP 109/65; PULSE 61; RESP 22; TEMP 36.5
--- NOTE | 2019-04-12 12:16 | PCM.WC.PN ---
(1) Non-pressure ulcer of lower extremity with fat layer exposed Status: Acute Current Visit: Yes Code(s): L97.902 - Non-pressure chronic ulcer of unspecified part of unspecified lower leg with fat layer exposed (2) Peripheral vascular disease of lower extremity with ulceration Status: Acute Current Visit: Yes Code(s): I73.9 - Peripheral vascular disease, unspecified; L97.909 - Non-pressure chronic ulcer of unspecified part of unspecified lower leg with unspecified severity (3) Cellulitis Status: Chronic Current Visit: Yes Code(s): L03.90 - Cellulitis, unspecified (4) Edema of lower extremity Status: Chronic Current Visit: Yes Code(s): R60.0 - Localized edema (5) History of multiple strokes Status: Chronic Current Visit: Yes Code(s): Z86.73 - Personal history of transient ischemic attack (TIA), and cerebral infarction without residual deficits Type of Wound Date of Service: 04/12/19 Chief Complaint: Follow-up on lower leg edema and ulcers History of Wound: 78-year-old white female that was referred to us from her family doctor from [place]. Approximately October 30 woke up one day and had severe edema of her lower extremities that she was unable to walk. Her daughter visits her daily noticed she had open sores on lower extremities and was oozing fluid. Went that she could not walk they took her by ambulance to the [facility]. Patient had an elevated BNP and was kept in the hospital for couple of days and discharged on water pills. Audiogram was normal has some valve problems no A. fib and history of hypertension and high cholesterol had her carotids cleared couple years ago. Today she has ulcers on the anterior and posterior right leg and posterior left leg. Typically irregular and edging well demarcated as you will see it in an arterial problem. We will get cultures of the wounds pre-albumin and we will have an AB study done and venous study of her lower extremities. Progress of Wound: Today the ulcers are healed patient will be discharged from the wound center - Physical Exam Vital Signs Temp Pulse Resp BP 97.7 F L 61 22 H 109/65 04/12/19 10:41 04/12/19 10:41 04/12/19 10:41 04/12/19 10:41 General: Oriented x3, Cooperative, Well developed HEENT: Atraumatic, PERRLA Oral: Moist Mucosa Neck: Supple, No JVD Lungs: Clear to auscultation, Normal air movement Cardiovascular: Regular rate, Regular Rhythm Abdomen: Bowel Sounds Present, Soft, Non Tender, No Hepato-splenomegaly Extremities: No clubbing, No edema Skin: Ulcer/ Wound - Posterior left wounds healing Wound Measurements and Assessment WC - Nurse 1 - General Ulcer Measurement Start: 04/12/19 10:39 Freq: Status: Active Protocol: Activity Type Activity Date Activity User E-Sign Co-Sign Detail Recorded Client Recorded Date Recorded By Document 04/12/19 10:41 DL [id number] 04/12/19 10:51 DL 04/12/19 10:41 Wound Center Nurse 1 [Ulcer Assessment] #3 Posterior LLE Cluster -Current Size (cm) - Length 2.5 -Current Size (cm) - Width 4 -Current Size (cm) - Depth 0.2 -Total Square Cm 10.0 -Photo Taken No -Exudate Amt Medium -Exudate Type Serosanguineous -Wound Margin Indistinct, Non -Visible -Granulation Amt Medium (34-66%) -Granulation Quality [place],Red -Necrosis Amt Medium (34-66%) -Necrotic Tissue Type Adherent Slough -Structure Exposed N/A -Texture (Denisse-wound Skin Appearance) Excoriation, Localized Edema ,Scarring -Moisture (Denisse-wound Skin Appearance Maceration ) -Color (Denisse-wound Skin Appearance) No Abnormality, Hemosiderin Staining -Temperature (Denisse-wound Skin No Abnormality Appearance) (Pt Warm) -Tenderness on Palpation (Denisse-wound No Skin Appearance) -Anesthetic Used 5% Lidocaine Gel [Edema Assessment] -Left Calf (cm) 42.8 -Left Ankle (cm) 28 WC - Nurse 2 - General Ulcer CM Notes Start: 04/12/19 10:39 Freq: Status: Active Protocol: Activity Type Activity Date Activity User E-Sign Co-Sign Detail Recorded Client Recorded Date Recorded By Document 04/12/19 11:32 MW [id number] 04/12/19 11:33 MW 04/12/19 11:32 Wound Center Nurse 2 [Procedure/Treatment] #3 Posterior LLE Cluster -Time 11:32 -Correct Patient Yes -Correct Side, Site, Position Yes -Correct Procedure Yes -Procedure Performed No -Wound/Ulcer Outcome Healed- Epithelialized [See Physician Procedure note for Specifics] Pain Scale: 0-10 Numeric [Pain] -Is Patient Pain Free? Yes Musculoskeletal: No Tenderness to Palpation of Joints or Extremities Lymphatic: No Cervical, Supraclavicular, or Inguinal Adenopathy Neurological: Cranial nerves II-XII grossly intact, Neuro grossly intact Psych/Mental Status: Normal Affect, Appropriate Debridement Note Post-Debridement Measurements/Treatment WC - Nurse 2 - General Ulcer CM Notes Start: 04/12/19 10:39 Freq: Status: Active Protocol: Activity Type Activity Date Activity User E-Sign Co-Sign Detail Recorded Client Recorded Date Recorded By Document 04/12/19 11:32 MW [id number] 04/12/19 11:33 MW 04/12/19 11:32 Wound Center Nurse 2 #3 Posterior LLE Cluster -Time 11:32 -Correct Patient Yes -Correct Side, Site, Position Yes -Correct Procedure Yes -Procedure Performed No -Wound/Ulcer Outcome Healed- Epithelialized Pain Scale: 0-10 Numeric Is Patient Pain Free? Yes No debridement was completed today Assessment/Plan Active Problems Edema of lower extremity (Chronic) Cellulitis (Chronic) Non-pressure ulcer of lower extremity with fat layer exposed (Acute) History of multiple strokes (Chronic) Peripheral vascular disease of lower extremity with ulceration (Acute) Assessment: Nonhealing wounds left posterior leg resolved. Peripheral vascular disease with ulcers. Smoker. Edema lower extremities. Cellulitis Plan: Discharge from the wound center follow-up as needed
== END 2019-05-11 23:59 ==
LOC: WC 09:54
PROVIDERS: Family Provider Family Medicine; PCP Family Medicine; Referring Provider Nurse Practitioner; Visit Provider Nurse Practitioner
DX: Z09 Encounter for follow-up examination after completed treatment for conditions other than malignant neoplasm (principal); I73.9 Peripheral vascular disease, unspecified; Z86.73 Personal history of transient ischemic attack (TIA), and cerebral infarction without residual deficits; R60.0 Localized edema
CPT/HCPCS: 99213; G0463